=== PATIENT | female | born 1985 | race African-American/Black ===

== ENCOUNTER 2020-07-08 09:32 | Emergency (ER) | payer BC ==
--- NOTE | 2020-07-08 11:36 | ER ---
Nurse's Notes [facility] Name: Rachel Dewey Age: 34 yrs Sex: Female : 1985 Arrival Date: 07/08/2020 Time: 09:41 Bed 5 Private MD: Diagnosis: state;Dorsalgia Presentation: 07/08 10:19 Chief complaint: Patient states: low back and mid back pain for almost 8 months now, iw intermittent, when the pain comes it feels like a shock, also wants a test, LMP was 06-04-20. Coronavirus screen: At this time, the client does not indicate any symptoms associated with coronavirus-19. Ebola Screen: Patient negative for fever greater than or equal to 101.5 degrees Fahrenheit, and additional compatible Ebola Virus Disease symptoms Patient denies exposure to infectious person. Patient denies travel to an Ebola-affected area in the 21 days before illness onset. No symptoms or risks identified at this time. Initial Sepsis Screen: Does the patient meet any 2 criteria? No. Patient's initial sepsis screen is negative. Does the patient have a suspected source of infection? No. Patient's initial sepsis screen is negative. Risk Assessment: Do you want to hurt yourself or someone else? Patient reports no desire to harm self or others. Onset of symptoms was October 2019. 10:19 Method Of Arrival: Ambulatory iw 10:19 Acuity: SADIA 4 iw Triage Assessment: 11:43 General: Appears in no apparent distress. Behavior is calm, cooperative. iw Musculoskeletal: Range of motion: intact in all extremities. 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 - Social history:: Smoking status: Patient denies any tobacco usage or history of. Screenin:43 Abuse screen: Denies threats or abuse. Denies injuries from another. Nutritional iw screening: No deficits noted. Tuberculosis screening: No symptoms or risk factors identified. Fall Risk None identified. Assessment: 11:00 General: Appears in no apparent distress. Pain: Complains of pain in mid back area and iw thoracic area. Neuro: Level of Consciousness is awake, alert, obeys commands, Oriented to person, place, time. Cardiovascular: Patient's skin is warm and dry. Respiratory: Respiratory effort is even, unlabored, Respiratory pattern is regular, symmetrical. GI: Derm: Skin is intact, is healthy with good turgor. Vital Signs: 10:20 BP 143 / 58; Pulse 78; Resp 16 S; Temp 98.3; Pulse Ox 100% on R/A; iw ED Course: 09:41 Patient arrived in ED. rg4 10:21 Triage completed. iw 10:22 Arm band placed on. iw 10:44 Gurvinder Teixeira PA is PHCP. cp 10:44 Carlos Alberto Maxwell MD is Attending Physician. cp 11:00 Patient has correct armband on for positive identification. iw 11:26 Pauline Soto RN is Primary Nurse. iw 11:35 John Sung MD is Referral Physician. cp 11:43 No provider procedures requiring assistance completed. Patient did not have IV access iw during this emergency room visit. Administered Medications: No medications were administered Outcome: 11:36 Discharge ordered by MD. cp 11:43 Discharged to home ambulatory. iw 11:43 Condition: good 11:43 Discharge instructions given to 11:44 Patient left the ED. iw Signatures: Pauline Soto RN RN iw Gurvinder Teixeira PA PA Jeana Thomas rg4 Corrections: (The following items were deleted from the chart) 10:22 10:19 Chief complaint: Patient states: low back and mid back pain for almost 8 months iw now, intermittent, when the pain comes it feels like a shock iw
--- NOTE | 2020-07-08 11:36 | EDPHYS ---
Physician Documentation [facility] Name: Rachel Dewey Age: 34 yrs Sex: Female : 1985 Arrival Date: 07/08/2020 Time: 09:41 Bed 5 Private MD: ED Physician Carlos Alberto Maxwell HPI: 07/08 11:05 This 34 yrs old Black Female presents to ER via Ambulatory with complaints of Back cp Pain, Body Aches. 11:05 The patient presents with pain that is chronic, with no known mechanism of injury. The cp symptoms are located in the mid back with pain radiating up. Onset: The symptoms/episode began/occurred Onset: The symptoms/episode began/occurred 8 month(s) ago. 11:05 Associated signs and symptoms: Pertinent negatives: abdominal pain, fever, cp incontinence, numbness, weakness. 11:05 The problem was sustained from unknown cause. Patient requesting test. 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 - Social history:: Smoking status: Patient denies any tobacco usage or history of. ROS: 11:10 Constitutional: Negative for body aches, chills, fever, poor PO intake. cp 11:10 Eyes: Negative for injury, pain, redness, and discharge. cp 11:10 ENT: Negative for ear pain, difficulty swallowing, difficulty handling secretions. 11:10 Cardiovascular: Negative for chest pain. 11:10 Respiratory: Negative for cough, shortness of breath. 11:10 Abdomen/GI: Negative for abdominal pain, nausea, vomiting, and diarrhea. 11:10 Back: Positive for pain at rest, pain with movement. 11:10 : Negative for urinary symptoms, vaginal bleeding. 11:10 Neuro: Negative for altered mental status, headache, weakness. 11:10 All other systems are negative. Exam: 11:15 Constitutional: The patient appears in no acute distress, alert, awake, comfortable, cp non-toxic, well developed, well nourished. 11:15 Head/Face: Normocephalic, atraumatic. cp 11:15 Eyes: Periorbital structures: appear normal, Conjunctiva: normal, no exudate, no injection, Sclera: no appreciated abnormality, Lids and lashes: appear normal, bilaterally. 11:15 ENT: External ear(s): Nose: is normal, Posterior pharynx: Airway: no evidence of obstruction, patent. 11:15 Chest/axilla: Inspection: normal. 11:15 Respiratory: the patient does not display signs of respiratory distress, Respirations: normal, no use of accessory muscles. 11:15 Abdomen/GI: Exam negative for discomfort, distension, guarding, Inspection: abdomen appears normal. 11:15 Back: pain, that is very mild, of the left scapular area, right scapular area, left subscapular area, right subscapular area, thoracic area and mid back area, ROM is normal. 11:15 Skin: no rash present. 11:15 Neuro: Orientation: to person, place \T\ time. Mentation: is normal, Motor: moves all fours, strength is normal, Sensation: is normal, Gait: is steady. Vital Signs: 10:20 BP 143 / 58; Pulse 78; Resp 16 S; Temp 98.3; Pulse Ox 100% on R/A; iw MDM: 10:56 Patient medically screened. cp 11:35 Data reviewed: vital signs, nurses notes, lab test result(s), and as a result, I will cp discharge patient. 11:35 Counseling: I had a detailed discussion with the patient and/or guardian regarding: the cp historical points, exam findings, and any diagnostic results supporting the discharge/admit diagnosis, lab results, the need for outpatient follow up, an OB/Gyne specialist, to return to the emergency department if symptoms worsen or persist or if there are any questions or concerns that arise at home. 07/08 11:33 Order name: Urine Dipstick--Ancillary (enter results) eb 07/08 11:33 Order name: Urine --Ancillary (enter results) eb 07/08 10:57 Order name: Urine Dipstick-Ancillary (obtain specimen); Complete Time: 11:26 cp 12/10 10:57 Order name: Urine Test (obtain specimen); Complete Time: 11:26 cp Administered Medications: No medications were administered Disposition: 14:39 Co-signature as Attending Physician, Carlos Alberto Maxwell MD I agree with the assessment and kdr plan of care. Disposition: 07/08/20 11:36 Discharged to Home. Impression: state, Dorsalgia. - Condition is Stable. - Discharge Instructions: Back Pain in , First Trimester of . - Prescriptions for Vitamin 27- 0.8 mg Oral Tablet - take 1 tablet by ORAL route once daily; 60 tablet. - Medication Reconciliation Form, Thank You Letter, Antibiotic Education, Prescription Opioid Use form. - Follow up: John Sung MD; When: 1 week; Reason: Recheck today's complaints. - Problem is new. - Symptoms have improved. Signatures: Dispatcher [employer] EDMS Carlos Alberto Maxwell MD MD kdr Pauline Soto RN RN iw Gurvinder Teixeira PA PA cp Corrections: (The following items were deleted from the chart) 11:44 11:36 07/08/2020 11:36 Discharged to Home. Impression: state; Dorsalgia. iw Condition is Stable. Forms are Medication Reconciliation Form, Thank You Letter, Antibiotic Education, Prescription Opioid Use. Follow up: John Sung; When: 1 week; Reason: Recheck today's complaints. Problem is new. Symptoms have improved. cp 19:06 11:05 Onset: The symptoms/episode began/occurred cp cp
[2020-07-08 12:08] LABS: Urine Blood NEGATIVE (NEG); Urine Glucose NEGATIVE (NEG); Urine Protein TRACE (NEG); Urine Specific Gravity 1.025 (1.005-1.030)
== END 2020-07-08 11:44 | disposition home or self-care (01) ==
LOC: ER 09:32
DX: M54.9 Dorsalgia, unspecified (principal); Z33.1 Pregnant state, incidental
CPT/HCPCS: 81003; 81025; 99281

== ENCOUNTER 2020-07-15 12:04 | Emergency (ER) | payer BC ==
--- OUTSIDE RECORDS SUMMARY | 2020-07-15 12:06 | XMS REPORT | Clinical Summary ---
:1985 Author Organization [facility] Address [address] [place] [address] Care Team Providers Name Role Phone Unavailable Primary Care Provider Unavailable Allergies No Known Active Allergies Medications Medication Sig Dispensed Refills Start Date End Date Status 25/iron Take by mouth. 0 Active fum/folic/dha (-1 OR) vitamin Take 1 tablet 90 tablet 1 08/19/2019 Active tabletIndication by mouth daily s: Pharmacist may (spontaneous select any vaginal delivery) Vitamin product covered on the patient's insurance for new rxs and refills. ibuprofen Take 1 tablet 20 tablet 1 08/19/2019 Activ e (MOTRIN) 800 mg by mouth every tabletIndication 8 hours as s: needed for (spontaneous Pain. vaginal delivery) ferrous sulfate Take 1 tablet 30 tablet 3 05/27/2019 Discontinued 325 mg (65 mg by mouth daily 0 ( Therapy iron) (with completed) tabletIndication breakfast). s: Anemia, unspecified type Active Problems Problem Noted Date Normal labor and delivery 08/17/2019 Current with history of pre-term labor in th ird trimester 07/05/2019 Overview: Pt with history of labor and del андрей at 36 weeks gestation 2018 and short interval between . 06/03/2019 S een and evaluated by [facility] . Pt was outside of window for 17 OHP 2/2 m issed/cancelled several appointments. Oligohydramnios in third trimester 07/02/2019 Overview: 07/02/2019 Sono done 06/17/2019 with MARIO 7.9 cm ( borderline ) at 29 weeks gestation . . 07/02/2019 ANT ordered for follow up MARIO 07/09/2019 . with 32 completed weeks gestation 07/02/2019 Obesity, Class I, BMI 30-34.9 06/17/2019 Overview: BMI at entry of care 29.4 Encounter for other general counseling and advice on c ontraception 05/27/2019 Overview: 05/27/19: history of short interval with most recent delivery 07/2018. Counseled on contraception today IUD vs nexplanon vs depo provera vs POP/OCPs. Patient declines at this time and wants to speak with her . Supervision of other normal 03/12/2019 Overview: OB History Para Term AB Living 4 2 1 1 0 2 SAB TAB Ectopic Multiple Live Births 0 0 0 0 2 Obstetric Comments x 1 No LMP recorded. Patient is . Estimated Date of Delivery: 08/27/19 by Ivon JAIME C/W 23 wk U/S Labs : 03/07/2019 Component Latest Ref Rng *03/07/19 ABO/RH O Positive Antibody Screen Negative Hemoglobin 10.5 Hematocrit 33.0 Platelet 229 Rubella, IgG 15.9 (immune) HBsAg Negative HIV-1/HIV-2 Negative RPR NR UDS Urine Culture No growth 2 days Pap 2017 Negative / HPV negative GC/CT Negative / Negative Quad screen Too late to care, 22 wks; c ancelled genetics appt 1 hour GCT Ordered 05/27/19 CBC RPR HIV GBS - flu shot 05/27/2019 Ultrasounds: 05/01/2019: 53%ile for 23w1d, posterior p lacenta, cervix 4.8cm, no anomalies seen 06/17/19 at 29w6d Anemia during in second trimester 03/12/2019 Overview: 05/27/19: hemoglobin 10.5 on 03/07/2019. Rx for PO iron daily printed today. AMA (advanced maternal age) multigravida 35+, second t rimester 03/11/2019 Overview: appt 05/01/19 genetic counseling cancelled Encounters Date Type Specialty Care Team Description 08/17/2019 - Hospital Encounter Obstetrics HENRY Craft (spon emily 08/19/2019 Hussein Morrison MD vaginal delive ry) (Primary Dx) after 07/15/2019 Immunizations Name Administration Dates Next Due Influenza Vaccine, Seasonal, 2017 (Deferred: Patient R efused - Injectable pt states she is allergic to egg) Influenza, 06/17/2019, 05/21/2018 Vaccine<FLUCELVAX>(Multi-Dose) Tdap (Tetanus Toxoid, Reduced 07/15/2018, 04/05/2017 Diphtheria Toxoid And Acellular Pertussis, Absorbed) Family History Relation Name Status Comments Brother Alive 2 Father Alive Maternal Grandfather Maternal Grandmother Mother Alive Paternal Grandfather Paternal Grandmother Sister Alive 2 Social History Tobacco Use Types Packs/Day Years Used Date Never Smoker Smokeless Tobacco: Never Used Alcohol Use Drinks/Week oz/Week Comments Never 0 Standard drinks or equivalent 0.0 Alcohol Habits Answer Date Recorded How often do you have a drink containing alcohol? Never 02/28/2019 How many drinks containing alcohol do you have on a typical Not asked day when you are drinking? How often do you have six or more drinks on one occasion? No t asked Food Insecurity Answer Date Recorded Within the past 12 months, you worried that your food would Never true 04/04/2018 run out before you got money to buy more. Within the past 12 months, the food you bought just didn't N ever true 04/04/2018 last and you didn't have money to get more. Sex Assigned at Date Recorded Not on file Last Filed Vital Signs Vital Sign Reading Time Taken Comments Blood Pressure 129/83 08/19/2019 12:24 PM [employer] Pulse 75 08/19/2019 12:24 PM [employer] Temperature 36.7 C (98.1 F) 08/19/2019 12:24 PM [employer] Respiratory Rate 18 08/19/2019 12:24 PM [employer] Oxygen Saturation 99% 08/17/2019 6:15 AM [employer] Inhaled Oxygen Concentration - - Weight - - Height - - Body Mass Index - - Plan of Treatment Health Maintenance Due Date Last Done Comments IMM Influenza Seasonal Oct to 04/29/2020 06/17/2019, 2017 (>/= 19 yrs) Pap Cervical Cancer Scrn 07/25/2022 07/25/2017 (Previously completed - External) HPV Cervical Cancer Scrn 2022 2017, 01/22/2017 Procedures Procedure Name Priority Date/Time Associated Comments Diagnosis HGB/HCT Routine 08/17/2019 7:26 Results for this PM [employer] procedure are i n the results section. LACTATE DEHYDROGENASE STAT 08/17/2019 5:58 Re sults for this (LDH) AM [employer] procedure are i n the results section. TOTAL PROTEIN/CREATININE STAT 08/17/2019 5:58 Results for this RATIO, URINE AM [employer] procedure are i n the results section. ALANINE STAT 08/17/2019 5:58 Results for this AMINOTRASFERASE/ASPARTAT AM [employer] pro cedure are in E AMINOTRANSFERASE the resul ts (ALT/AST) section. T&S - COLLECTION STAT 08/17/2019 4:09 Results for this AM [employer] procedure are i n the results section. TYPE AND SCREEN STAT 08/17/2019 4:09 Results for this AM [employer] procedure are i n the results section. CBC (WITHOUT STAT 08/17/2019 4:08 Results for this DIFFERENTIAL) AM [employer] procedure are in the results section. SYPHILIS SCREEN FOR STAT 08/17/2019 4:08 Resu lts for this INFECTION AM [employer] procedure are i n the results section. HEPATITIS B SURFACE AG STAT 08/17/2019 4:08 R esults for this AM [employer] procedure are i n the results section. HIV AG/AB COMBO STAT 08/17/2019 4:08 Results for this SCREENING AM [employer] procedur e are in the results section. after 07/15/2019 Results HGB/HCT (08/17/2019 7:26 PM [employer]) Pathologist Sig nature Hemoglobin 10.6 (L) 12.0 - 16.0 g/dL [facility] Hematocrit 32.7 (L) 37.0 - 47.0 % [facility] Specimen Blood Narrative Performed At 8 hours after delivery [facility] Performing Organization Address City/[facility] Phon e Number [facility] [address] [place] [address] Total Protein/Creatinine Ratio, Urine (08/17/2019 5:58 AM [employer]) Pathologist Sig nature Creatinine, Urine 36 20 - 320 mg/dL [facility] Total Protein, Urine 0.10 <0.19 g/L [facility] Total 0.3 0 - 0.5 % % [facility] Protein/Creatinine Ratio, Urine Specimen Urine - Voided, urine Performing Organization Address City/[facility] Phon e Number [facility] [address] [place] [address] LDH [Lactate Dehydrogenase] (08/17/2019 5:58 AM [employer]ER) Pathologist Sig nature LDH 224 140 - 271 U/L [facility] Specimen Blood Performing Organization Address [facility] Phon e Number [facility] [address] [place] [address] ALT/AST (08/17/2019 5:58 AM [employer] AND [employer]BLER) Pathologist Sig nature ALT 17 7 - 52 U/L [facility] AST 23 13 - 39 U/L [facility] Specimen Blood Performing Organization Address [facility] Phon e Number [facility] [address] [place] [address] T&S Collection (08/17/2019 4:09 AM [employer]BLER) Pathologist Sig nature Specimen Expiration 08/20/2019 23:59 [facility] ABO/RH O POS [facility] Antibody Screen NEG [facility] Specimen Blood Performing Organization Address [facility] Phon e Number [facility] [address] [place] [address] Syphilis Screen for Infection (08/17/2019 4:08 AM [employer]) Pathologist Sig nature TPA Negative Negative, Equivocal [facility] Final Report Negative Negative [facility] Specimen Blood Performing Organization Address [facility] Phon e Number [facility] [address] [place] [address] HIV-1/HIV-2 SCREENING (08/17/2019 4:08 AM [employer]BLER) Pathologist Sig nature HIV Ag/Ab Combo Negative Negative [facility] Specimen Blood Performing Organization Address [facility] Phon e Number [facility] [address] [place] [address] [phone] Hep B [place] Ag (08/17/2019 4:08 AM [employer] AS[employer]BLER) Pathologist Sig nature Hep B Surface Ag Negative Negative [facility] Specimen Blood Performing Organization Address [facility] Phon e Number [facility] [address] [place] [address] [phone] CBC (08/17/2019 4:08 AM [employer] AND W[employer] ASSEMBLER) Pathologist Sig nature WBC 12.4 (H) 4.5 - 11.0 K/uL [facility] RBC 4.17 (L) 4.20 - 5.40 [facility] M/uL Hemoglobin 11.3 (L) 12.0 - 16.0 [facility] g/dL Hematocrit 36.1 (L) 37.0 - 47.0 % [facility] MCV 86.6 82.0 - 92.0 fL [facility] MCH 27.1 27.0 - 32.0 pg [facility] MCHC 31.3 (L) 32.0 - 36.0 [facility] g/dL RDW 41.5 36.4 - 46.3 fL [facility] Platelet 166 150 - 400 K/uL [facility] Mean Platelet Volume 10.9 9.4 - 12.4 fL [facility] Percent NRBC 0.0 % [facility] Specimen Blood Performing Organization Address City/State/ZIP Code Phon e Number [facility] [address] [place] [address] after 07/15/2019 Insurance Payer Benefit Plan / Subscriber ID Effective Dates Phone Addre ss Type Group [employer] SELF-PAY [id number] [employer] SELF-PAY SCREENED [address] [place] [address] Guarantor Name Account Type Relation to Date of Phone Billing Address Patient LORRIE DEWEY Personal/Famil Head of 1985 [address] (Self) (Home) [address] [place], [place] (Work) [id number] Lorrie Dewey Marlon Self 1985 [address] (Home) [place], [place] [phone] (Work) Advance Directives Code Status Date Activated Date Inactivated Comments Full Code 08/17/2019 4:54 AM 08/19/2019 4:25 PM Full Code 08/17/2019 3:30 AM 08/17/2019 4:54 AM Full Code 08/14/2018 5:05 AM 08/15/2018 8:05 PM Full Code 08/13/2018 3:59 PM 08/14/2018 5:05 AM Full Code 08/02/2018 9:21 PM 08/03/2018 5:25 PM
--- OUTSIDE RECORDS SUMMARY | 2020-07-15 12:07 | XMS REPORT | Continuity of Care Document ---
:1985 Author Organization [facility] t Address [address] [place] [address] Care Team Providers Name Role Phone Luana BINGHAM, Hussein Morrison Attending Clinician Payers Payer Name Policy Type Policy Number Effective Date Expiration Date Yash anton [facility] [id number] 2019 2029 [facility] SELF-PAYSELF- 00:00:00 23:59:59 PAY [id number] [phone] [place] [address] Problems Condition Condition Condition Status Onset Resolution Last Treating Co mments Source Name Details Category Date Date Treatment Clinician Date Normal Normal Disease Active Alberto labor and labor and 08-17 delivery delivery 00:00: 00 Current Current Disease Active 2018-07 Overview: Sandi is 2-07 Pt with Maci lt with with 00:00: history history of history of 00 of pre-term pre-term labor in labor in labor and third third delivery trimester trimester at 36 weeks gestation 2018 and short interval between . 06/03/2019 Seen and evaluated by [facility] . Pt was outside of window for 17 OHP 2/2 missed/ca ncelled several appointme nts. Oligohydra Oligohydra Disease Active 2018-07 Overview : Remy mnios in mnios in 2-04 07/02/2019 Hea lt third third 00:00: Sono done trimester trimester 00 9 with MARIO 7.9 cm ( borderlin e ) at 29 weeks gestation . . 07/02/2019 ANT ordered for follow up MARIO 9 . Disease Active 2018-07 Fletcher ris with 32 with 32 2- Health completed completed 00:00: weeks weeks 00 gestation gestation Obesity, Obesity, Disease Active 2018-07 Overview: Guerrero rris Class I, Class I, 1-19 BMI at Health BMI BMI 00:00: entry of 30-34.9 30-34.9 00 care 29.4 Encounter Encounter Disease Active 2018-07 Overview: Remy for other for other 0-29 05/27/19: H ealt general general 00:00: history counseling counseling 00 of short and advice and advice interval on on contracept contracept with most ion ion recent delivery 07/2018. Counseled on contracep tion today IUD vs nexplanon vs depo provera vs POP/OCPs. Patient declines at this time and wants to speak with her . Supervisio Supervisio Disease Active Overview : Remy n of other n of other 8-14 [facility] normal normal 00:00: g of this 00 note might be different from the original. OB History Para Term AB Living 4 2 1 1 0 2 SAB TAB Ectopic Multiple Live Births 0 0 0 0 2 Obstetric Comments x 1 No LMP recorded. Patient is . Estimated Date of Delivery: 08/27/19 by LMP C/W 23 wk U/S Labs : 03/07/2019 Component Latest Ref Rng *03/07/19 ABO/RH O Positive Antibody Screen Negative Hemoglobi n 10.5 Hematocri t 33.0 Platelet 229 Rubella, IgG 15.9 (immune) HBsAg Negative HIV-1/HIV -2 Negative RPR NR UDS Urine Culture No growth 2 days Pap 7 Negative / HPV negative GC/CT Negative / Negative Quad screen Too late to care, 22 wks; cancelled genetics appt 1 hour GCT Ordered 05/27/19 CBC RPR HIV GBS - flu shot 9Ultrasou nds:2018: 53%ile for 23w1d, posterior placenta, cervix 4.8cm, no anomalies seen 06/17/19 at 29w6d Anemia Anemia Disease Active Overview: [place] during during -05/27/19: Health 00:00: hemoglobi in second in second 00 n 10.5 on trimester trimester 03/07/2019. Rx for PO iron daily printed today. AMA AMA Disease Active Overview: Alberto (advanced (advanced 03-11 appt Heal th maternal maternal 00:00: 05/01/19 age) age) 00 genetic multigravi multigravi counselin da 35+, da 35+, g second second cancelled trimester trimester Allergies, Adverse Reactions, Alerts This patient has no known allergies or adverse reactions. Social History Social Habit Start Date Stop Date Quantity Comments Source History [facility] Alcohol Std Drinks History [facility] Alcohol Binge Sex Assigned At [facility] alth Tobacco use and 2019-08-17 2019-08-17 Never used [facility] exposure 00:00:00 00:00:00 Alcohol intake 2019-08-17 2019-08-17 [facility]00 non-drinker (finding) History [facility] 2019-02-28 2019-02-[address] [facility] Alcohol Frequency 00:00:00 00:00:00 History [facility] Food 2018-04-04 2018-04-04 1 [place] [facility] Worry 00:00:00 00:00:00 History [facility] Food 2018-04-04 2018-04-04 1 [place] [facility] Scarcity 00:00:00 00:00:00 Smoking Status Start Date Stop Date Source Never smoker [facility] Medications Ordered Filled Start Stop Current Ordering Indication Dosage Frequency Signature Comments Components Source Medication Medication Date Date Medication? Clinician (SIG) Name Name Yes Take by Alberto 25/iron 1-21 mouth. Health fum/folic/d 14:25: guerrero 02 (-1 OR) Yes 1{tbl} QD Take 1 Harri s vitamin 1-21 (spontaneou tablet by Health tablet 00:00: s vaginal mouth 00 delivery) daily Pharmacist may select any Vitamin product covered on the patient's insurance for new rxs and refills. ibuprofen Yes 800mg Take 1 Harri s (MOTRIN) -21 (spontaneou tablet by [facility] 800 mg 00:00: s vaginal mouth tablet 00 delivery) every 8 hours as needed for Pain. ferrous 2018-07- No Anemia, 325mg QD Take 1 Fletcher ris sulfate 325 008-[address] [facility] mg (65 mg 00:00: 00:00 type mouth iron) 00 :00 daily tablet (with breakfast) . Immunizations Ordered Immunization Filled Immunization Date Status Commen ts Source Name Name Influenza, 2019-06-17 Completed [facility] Vaccine<FLUCELVAX>(M 00:00:00 ulti-Dose) Tdap (Tetanus 2018-07-[address] [facility] Toxoid, Reduced 00:00:00 Diphtheria Toxoid And Acellular Pertussis, Absorbed) Influenza, 2018-05-21 Completed [facility] Vaccine<FLUCELVAX>(M 00:00:00 ulti-Dose) Tdap (Tetanus 2017-04-[address] [facility] Toxoid, Reduced 00:00:00 Diphtheria Toxoid And Acellular Pertussis, Absorbed) Vital Signs Vital Name Observation Time Observation Value Comments Source Systolic blood pressure 2019-08-19 12:24:00 129 mm[Hg] [facility] Diastolic blood pressure 2019-08-19 12:24:00 83 mm[Hg] [facility] Heart rate 2019-08-19 12:24:00 75 /min [facility] ealt Body temperature 2019-08-19 12:24:[address] [facility] Respiratory rate 2019-08-19 12:24:00 18 /min [facility] Oxygen saturation in 2019-08-17 06:15:00 99 /min [facility] Arterial blood by Pulse oximetry Procedures Procedure Date / Time Performed Performing Clinician Sourc e HGB/HCT 2019-08-17 19:26:[address] [facility] ALANINE 2019-08-17 05:58:00 Celena August [facility] AMINOTRASFERASE/ASPARTATE AMINOTRANSFERASE (ALT/AST) TOTAL PROTEIN/CREATININE 2019-08-17 05:58:00 [facility] RATIO, URINE LACTATE DEHYDROGENASE (LDH) 2019-08-17 05:58:00 Celena August [facility] TYPE AND SCREEN 2019-08-17 04:09:00 [facility] 2019-08-17 04:09:00 AgustinaLiz [facility] th HIV AG/AB COMBO 2019-08-17 04:08:[address] [facility] SCREENING HEPATITIS B SURFACE AG 2019-08-17 04:08:[facility] SYPHILIS SCREEN FOR INFECTION 2019-08-17 04:08:00 Liz Berrios [facility] CBC (WITHOUT DIFFERENTIAL) 2019-08-17 04:08:[address] [facility] Plan of Care Planned Activity Planned Date Details Comments Source Future Scheduled Test 2022 00:00:00 Screening for [facility] malignant neoplasm of cervix (procedure) [code = 301187329] Future Scheduled Test 2022-07-25 00:00:00 Screening for [facility] malignant neoplasm of cervix (procedure) [code = 264376257] Future Scheduled Test 2020-04-29 00:00:00 IMM Influenza [facility] Seasonal Oct to September (>/= 19 yrs) [code = IMM Influenza Seasonal Oct to September (>/= 19 yrs)] Encounters Start End Encounter Admission Attending Care Care Encounter Source Date/Time Date/Time Type Type Clinicians Facility Department ID 2018-08-13 Inpatient [facility] [id number] H arris 00:00:00 [facility] 2018-08-13 Inpatient [facility] [id number] H arris 00:00:00 [facility] 2018-08-03 Inpatient [facility] [id number] H arris 00:00:00 [facility] 2017-06-15 Inpatient [facility] [id number] H arris 20:08:24 [facility] 2017-06-14 Inpatient [facility] [id number] H arris 22:47:52 Health 2019-07-16 2019-07-16 Outpatient [facility] [id number] [place] 00:00:00 00:00:00 Health 2019-07-09 2019-07-09 Outpatient [facility] [id number] [place] 00:00:00 00:00:00 Health 2019-07-09 2019-07-09 Outpatient [facility] [id number] [place] 00:00:00 00:00:00 Health 2019-07-02 2019-07-02 Outpatient [facility] [id number] Alberto 14:55:58 14:55:58 Health 2019-06-23 2019-06-23 Outpatient [facility] [id number] Alberto 00:00:00 00:00:00 [facility] 2019-06-17 2019-06-17 Outpatient [facility] [id number] [place]to 16:12:47 16:12:47 [facility] 2019-06-17 2019-06-17 Outpatient [facility] [id number] Alberto 14:58:36 14:58:36 [facility] 2019-06-17 2019-06-17 Outpatient [facility] [id number] [place] 00:00:00 00:00:00 [facility] 2019-06-17 2019-06-17 Outpatient [facility] [id number] [place] 00:00:00 00:00:00 [facility] 2019-06-02 2019-06-02 Outpatient [facility] [id number] Alberto 00:00:00 00:00:00 [facility] 2019-05-27 2019-05-27 Outpatient [facility] [id number] [place]to 15:50:59 15:50:59 [facility] 2019-05-06 2019-05-06 Outpatient [facility] [id number] [place]to 00:00:00 00:00:00 [facility] 2019-05-01 2019-05-01 Outpatient [facility] [id number] [place] 13:57:04 13:57:04 [facility] 2019-05-01 2019-05-01 Outpatient [facility] [id number] [place] 00:00:00 00:00:00 [facility] 2019-05-01 2019-05-01 Outpatient [facility] [id number] [place] 00:00:00 00:00:00 [facility] 2019-05-01 2019-05-01 Outpatient [facility] [id number] [place] 00:00:00 00:00:00 [facility] 2019-04-30 2019-04-30 Outpatient [facility] [id number] [place] 00:00:00 00:00:00 [facility] 2019-04-23 2019-04-23 Outpatient [facility] [id number] [place] 11:57:19 11:57:19 [facility] 2019-04-16 2019-04-16 Outpatient [facility] [id number] [place] 00:00:00 00:00:00 [facility] 2019-03-13 2019-03-13 Outpatient [facility] [id number] [place] 00:00:00 00:00:00 [facility] 2019-03-12 2019-03-12 Outpatient [facility] [id number] [place] 00:00:00 00:00:00 [facility] 2019-03-07 2019-03-07 Outpatient [facility] [id number] [place] 13:42:26 13:42:26 [facility] 2019-02-28 2019-02-28 Outpatient [facility] [id number] [place] 12:44:17 12:44:17 [facility] 2019-02-28 2019-02-28 Outpatient [facility] [id number] [place] 00:00:00 00:00:00 [facility] 2019-02-12 2019-02-12 Emergency [facility] [id number] Alberto 10:34:17 10:34:17 [facility] 2018-11-06 2018-11-06 Outpatient [facility] [id number] [place] 00:00:00 00:00:00 [facility] 2018-09-30 2018-09-30 Outpatient [facility] [id number] [place] 00:00:00 00:00:00 [facility] 2018-09-30 2018-09-30 Outpatient [facility] [id number] [place] 00:00:00 00:00:00 [facility] 2018-09-25 2018-09-25 Outpatient [facility] [id number] [place] 00:00:00 00:00:00 [facility] 2018-09-24 2018-09-24 Outpatient [facility] [id number] [place] 00:00:00 00:00:00 [facility] 2018-08-13 2018-08-13 Inpatient [facility] [id number] Alberto 14:09:33 14:09:33 [facility] 2018-08-03 2018-08-03 Outpatient [facility] [id number] [place] 08:30:48 08:30:48 [facility] 2018-08-02 2018-08-02 Inpatient [facility] [id number] Alberto 18:20:21 18:20:21 [facility] 2018-08-02 2018-08-02 Outpatient [facility] [id number] [place] 10:46:56 10:46:56 [facility] 2018 2018 Outpatient [facility] [id number] Alberto 09:43:06 09:43:06 [facility] 2018-07-19 2018-07-19 Outpatient [facility] [id number] [place] 08:58:18 08:58:18 [facility] 2018-07-15 2018-07-15 Outpatient [facility] [id number] [place] 14:56:06 14:56:06 [facility] 2018-07-08 2018-07-08 Outpatient [facility] [id number] [place] 00:00:00 00:00:00 [facility] 2018-06-24 2018-06-24 Outpatient [facility] [id number] [place] 13:29:46 13:29:46 [facility] 2018-06-24 2018-06-24 Outpatient [facility] [id number] [place] 00:00:00 00:00:00 [facility] 2018-05-22 2018-05-22 Outpatient [facility] [id number] [place] 00:00:00 00:00:00 [facility] 2018-05-21 2018-05-21 Outpatient [facility] [id number] [place] 12:01:37 12:01:37 [facility] 2018-05-21 2018-05-21 Outpatient [facility] [id number] [place] 11:04:03 11:04:03 [facility] 2018-05-06 2018-05-06 Outpatient [facility] [id number] [place] 12:58:42 12:58:42 [facility] 2018-05-06 2018-05-06 Outpatient [facility] [id number] [place] 00:00:00 00:00:00 [facility] 2018-04-22 2018-04-22 Outpatient [facility] [id number] [place] 00:00:00 00:00:00 [facility] 2018-04-22 2018-04-22 Outpatient [facility] [id number] [place] 00:00:00 00:00:00 [facility] 2018-04-04 2018-04-04 Outpatient [facility] [id number] [place] 10:25:29 10:25:29 [facility] 2018-03-29 2018-03-29 Outpatient [facility] [id number] [place] 00:00:00 00:00:00 [facility] 2018-03-29 2018-03-29 Outpatient [facility] [id number] [place] 00:00:00 00:00:00 [facility] 2018-03-27 2018-03-27 Outpatient [facility] [id number] [place] 00:00:00 00:00:00 [facility] 2018-03-18 2018-03-18 Outpatient [facility] [id number] [place] 14:00:21 14:00:21 [facility] 2018-03-14 2018-03-14 Outpatient [facility] [id number] [place] 09:21:05 09:21:05 [facility] 2017 2017 Outpatient [facility] [id number] [place] 15:16:09 15:16:09 [facility] 2017-06-18 2017-06-18 Outpatient [facility] [id number] [place] 00:00:00 00:00:00 [facility] 2017-06-13 2017-06-13 Inpatient [facility] [id number] [place] 13:16:41 13:16:41 [facility] 2017-06-13 2017-06-13 Outpatient [facility] [id number] [place] 11:15:24 11:15:24 [facility] 2017-06-13 2017-06-13 Outpatient [facility] [id number] [place] 00:00:00 00:00:00 [facility] 2017-06-13 2017-06-13 Outpatient [facility] [id number] [place] 00:00:00 00:00:00 [facility] 2017-06-13 2017-06-13 Outpatient [facility] [id number] [place] 00:00:00 00:00:00 [facility] 2017-06-12 2017-06-12 Outpatient [facility] [id number] [place] 00:00:00 00:00:00 [facility] 2017-06-12 2017-06-12 Outpatient [facility] [id number] [place] 00:00:00 00:00:00 [facility] 2017-06-05 2017-06-05 Outpatient [facility] [id number] [place] 11:49:40 11:49:40 [facility] 2017-06-05 2017-06-05 Outpatient [facility] [id number] [place] 09:57:27 09:57:27 [facility] 2017-06-04 2017-06-04 Outpatient [facility] [id number] [place] 00:00:00 00:00:00 [facility] 2017-05-28 2017-05-28 Outpatient [facility] [id number] [place] 16:15:59 16:15:59 [facility] 2017-05-28 2017-05-28 Outpatient [facility] [id number] [place] 14:56:12 14:56:12 [facility] 2017-05-28 2017-05-28 Outpatient [facility] [id number] [place] 12:06:27 12:06:27 [facility] 2017-05-21 2017-05-21 Outpatient [facility] [id number] [place] 00:00:00 00:00:00 [facility] 2017-05-21 2017-05-21 Outpatient [facility] [id number] [place] 00:00:00 00:00:00 [facility] 2017-05-14 2017-05-14 Outpatient [facility] [id number] [place] 17:34:44 17:34:44 [facility] 2017-05-14 2017-05-14 Outpatient [facility] [id number] [place] 15:19:09 15:19:09 [facility] 2017-05-14 2017-05-14 Outpatient [facility] [id number] [place] 00:00:00 00:00:00 [facility] 2017-05-14 2017-05-14 Outpatient [facility] [id number] [place] 00:00:00 00:00:00 [facility] 2017-05-14 2017-05-14 Outpatient [facility] [id number] [place] 00:00:00 00:00:00 [facility] 2017-05-07 2017-05-07 Outpatient [facility] [id number] [place] 10:33:58 10:33:58 [facility] 2017-04-30 2017-04-30 Outpatient [facility] [id number] [place] 14:01:44 14:01:44 [facility] 2017-04-30 2017-04-30 Outpatient [facility] [id number] [place] 11:57:33 11:57:33 [facility] 2017-04-30 2017-04-30 Outpatient [facility] [id number] [place] 10:46:51 10:46:51 [facility] 2017-04-30 2017-04-30 Outpatient [facility] [id number] [place] 00:00:00 00:00:00 [facility] 2017-04-16 2017-04-16 Outpatient [facility] [id number] [place] 13:41:48 13:41:48 [facility] 2017-04-05 2017-04-05 Outpatient [facility] [id number] [place] 09:49:53 09:49:53 [facility] 2017-03-19 2017-03-19 Outpatient [facility] [id number] [place] 13:30:03 13:30:03 [facility] 2017-03-19 2017-03-19 Outpatient [facility] [id number] [place] 11:48:14 11:48:14 [facility] 2017-03-19 2017-03-19 Outpatient [facility] [id number] [place] 00:00:00 00:00:00 [facility] 2017-03-05 2017-03-05 Outpatient [facility] [id number] [place] 11:57:40 11:57:40 [facility] 2017-02-19 2017-02-19 Outpatient [facility] [id number] [place] 15:20:43 15:20:43 [facility] 2017-02-02 2017-02-02 Outpatient [facility] [id number] [place] 12:36:25 12:36:25 Health 2017-01-22 2017-01-22 Outpatient [facility] [id number] [place] 11:44:16 11:44:16 [facility] 2017-01-22 2017-01-22 Outpatient [facility] [id number] [place] 10:25:12 10:25:12 Health 2017-01-03 2017-01-03 Outpatient [facility] [id number] [place] 11:28:23 11:28:23 Health 2016-12-23 2016-12-23 Outpatient [facility] [id number] [place] 14:59:52 14:59:52 Health Results Test Description Test Time Test Comments Results Result Comments Source HGB/HCT 2019-08-17 19:46:00 Test Item Value Reference Range Interpretation Comme nts Hemoglobin (test code = 718-7) 10.6 g/dL 12-16 L Hematocrit (test code = 4544-3) 32.7 % 37-47 L MANAS (test code = MANAS) 8 hours after delivery Lab Interpretation (test code = 65989-0) [facility]normal [facility] [id number] 11:38:00 Test Item Value Reference Range Interpretation Comments TPA (test code = 50894-8) Negative Negative, Equivocal Final Report (test code = Negative Negative 65979-1) Lab Interpretation (test code = Normal 99923-7) [facility][id number] 07:11:00 Test Item Value Reference Range Interpretation Comments ALT (test code = 98058874) 17 U/L 7-52 AST (test code = 72007836) 23 U/L 13-39 Lab Interpretation (test code = Normal 45941-3) [facility] [Lactate Dehydrogenase]2019-08-17 07:11:00 Test Item Value Reference Range Interpretation Comments LDH (test code = 41350488) 224 U/L 140-271 Lab Interpretation (test code = Normal 48397-8) [facility]/Creatinine Ratio, [id number] 07:01:00 Test Item Value Reference Range Interpretation Comments Creatinine, Urine (test code = 36 mg/dL 20-320 93432118) Total Protein, Urine (test code = 0.10 g/L <0.19 23106987) Total Protein/Creatinine Ratio, 0.3 % 0- 0.5 % Urine (test code = 70119367) Lab Interpretation (test code = Normal 48730-8) [facility] CenterT&S [id number] 06:03:00 Test Item Value Reference Range Interpretation Comments Specimen Expiration (test 08/20/2019 23:59 code = 33144608) ABO/RH (test code = O POS 43802142) Antibody Screen (test code = NEG 86953653) [facility] Center[facility] B [id number] 05:36:00 Test Item Value Reference Range Interpretation Comments Hep B Surface Ag (test code = Negative Negative 5196-1) Lab Interpretation (test code = Normal 40332-8) [facility]/HIV-2 [id number] 05:36:00 Test Item Value Reference Range Interpretation Comments HIV Ag/Ab Combo (test code = Negative Negative 63379-2) Lab Interpretation (test code = Normal 38454-5) [facility] [id number] 04:54:00 Test Item Value Reference Range Interpretation Comments WBC (test code = 6690-2) 12.4 K/uL 4.5-11 H RBC (test code = 789-8) 4.17 4.20- 5.40 M/uL L Hemoglobin (test code = 718-7) 11.3 g/dL 12-16 L Hematocrit (test code = 4544-3) 36.1 % 37-47 L MCV (test code = 787-2) 86.6 fL 82-92 MCH (test code = 785-6) 27.1 pg 27-32 MCHC (test code = 786-4) 31.3 g/dL 32-36 L RDW (test code = 27768-1) 41.5 fL 36.4-46.3 Platelet (test code = 777-3) 166 K/uL 150-400 Mean Platelet Volume (test code = 10.9 fL 9.4-12.4 53431-1) Percent NRBC (test code = 98160772) 0.0 % Lab Interpretation (test code = Abnormal 85228-7) [facility]
--- NOTE | 2020-07-15 15:08 | ER ---
Nurse's Notes [facility] Name: Rachel Dewey Age: 34 yrs Sex: Female : 1985 Arrival Date: 07/15/2020 Time: 12:04 Bed 23 Private MD: Diagnosis: Viral infection, unspecified Presentation: 07/15 12:44 Chief complaint: Patient states: Feeling feverish since Sunday, denies jl7 cough/congestion, denies N/V/D, reports back pain, reports 5 weeks . Coronavirus screen: Client denies travel out of the [place] in the last 14 days. fever, Client presents with at least one sign or symptom that may indicate coronavirus-19. Standard/surgical mask placed on the client. Provider contacted for isolation considerations. Ebola Screen: No symptoms or risks identified at this time. Initial Sepsis Screen: Does the patient meet any 2 criteria? No. Patient's initial sepsis screen is negative. Does the patient have a suspected source of infection? No. Patient's initial sepsis screen is negative. Risk Assessment: Do you want to hurt yourself or someone else? Patient reports no desire to harm self or others. Onset of symptoms was July 12, 2020. 12:44 Method Of Arrival: Ambulatory jl7 12:44 Acuity: SADIA 4 jl7 Triage Assessment: 12:46 General: Appears in no apparent distress. uncomfortable, Behavior is calm, cooperative, jl7 appropriate for age. Pain: Complains of pain in low back area Pain does not radiate. Pain currently is 5 out of 10 on a pain scale. Is intermittent. 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 - Social history:: Smoking status: Patient denies any tobacco usage or history of. Screenin:46 Abuse screen: Denies threats or abuse. Denies injuries from another. Nutritional jl7 screening: No deficits noted. Tuberculosis screening: No symptoms or risk factors identified. Fall Risk None identified. Assessment: 14:46 General: Appears in no apparent distress. uncomfortable, Behavior is calm, cooperative, jl7 appropriate for age. Pain: Complains of pain in low back area Pain does not radiate. Pain currently is 5 out of 10 on a pain scale. Quality of pain is described as sore Pain began gradually, Is continuous. Neuro: Level of Consciousness is awake, alert, obeys commands, Oriented to person, place, time, situation. Cardiovascular: Patient's skin is warm and dry. Respiratory: Airway is patent Respiratory effort is even, unlabored, Respiratory pattern is regular, symmetrical. GI: No signs and/or symptoms were reported involving the gastrointestinal system. : No signs and/or symptoms were reported regarding the genitourinary system. Derm: Skin is pink, warm \T\ dry. 16:16 Reassessment: Pt discharged without being swabbed. attempted to call pt back to ER and jl7 no answer at this time. Will continue to try and get pt back for swabs. ERP notifed. Vital Signs: 12:44 BP 142 / 90; Pulse 92; Resp 19; Temp 100; Pulse Ox 100% ; Weight 68.04 kg; Height 5 ft. jl7 5 in. (165.10 cm); Pain 5/10; 14:46 BP 146 / 100; Pulse 84; Resp 17; Temp 99.2; Pulse Ox 100% ; Pain 0/10; jl7 12:44 Body Mass Index 24.96 (68.04 kg, 165.10 cm) jl7 ED Course: 12:04 Patient arrived in ED. ag5 12:45 Triage completed. jl7 12:46 Arm band placed on right wrist. Patient placed in waiting room, in view of staff 7 members, Patient notified of wait time. 14:34 Francie Grider FNP-C is PHCP. snw 14:34 Carlos Alberto Maxwell MD is Attending Physician. snw 14:38 Wing Chen RN is Primary Nurse. jl7 14:46 Patient has correct armband on for positive identification. Bed in low position. Call jl7 light in reach. Side rails up X 1. Pulse ox on. NIBP on. 15:04 Urine collected: clean catch specimen, clear. jl7 15:25 No provider procedures requiring assistance completed. Patient did not have IV access jl7 during this emergency room visit. Administered Medications: No medications were administered Outcome: 15:07 Discharge ordered by MD. marte 15:25 Discharged to home ambulatory. jl7 15:25 Condition: stable 15:25 Discharge instructions given to patient, Instructed on discharge instructions, follow up and referral plans. Demonstrated understanding of instructions, follow-up care. 16:17 Patient left the ED. jl7 Signatures: Francie Grider, FISH HEADER-C FISH HEADER-Wing Vieyra RN RN jl7 Amador Pedraza ag5 Corrections: (The following items were deleted from the chart) 12:46 12:44 Chief complaint: Patient states: Feeling feverish since Sunday, denies jl7 cough/congestion, denies N/V/D, reports back pain jl7
--- NOTE | 2020-07-15 15:08 | EDPHYS ---
Physician Documentation [facility] Name: Rachel Dewey Age: 34 yrs Sex: Female : 1985 Arrival Date: 07/15/2020 Time: 12:04 Bed 23 Private MD: ED Physician Carlos Alberto Maxwell HPI: 07/15 15:37 This 34 yrs old Black Female presents to ER via Ambulatory with complaints of Fever. snw 15:37 The patient reports fever, not measured (subjective). Onset: The symptoms/episode snw began/occurred gradually, 3 day(s) ago. Modifying factors: Workplace requested pt have check up for hx of fever. Associated signs and symptoms: Pertinent positives: myalgias, . Severity of symptoms: At their worst the symptoms were moderate. It is unknown whether or not the patient has had similar symptoms in the past. It is unknown whether or not the patient has recently seen a physician. 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 - Social history:: Smoking status: Patient denies any tobacco usage or history of. ROS: 15:36 Eyes: Negative for injury, pain, redness, and discharge, ENT: Negative for injury, snw pain, and discharge, Neck: Negative for injury, pain, and swelling, Cardiovascular: Negative for chest pain, palpitations, and edema, Respiratory: Negative for shortness of breath, cough, wheezing, and pleuritic chest pain. 15:36 Back: Negative for injury and pain, MS/Extremity: Negative for injury and deformity, Skin: Negative for injury, rash, and discoloration, Neuro: Negative for headache, weakness, numbness, tingling, and seizure, Psych: Negative for depression, anxiety, suicide ideation, homicidal ideation, and hallucinations. 15:36 Constitutional: Positive for body aches, fever, malaise. 15:36 Abdomen/GI: Negative for abdominal pain. 15:36 : Negative for vaginal bleeding, vaginal discharge. Exam: 15:36 Constitutional: This is a well developed, well nourished patient who is awake, alert, snw and in no acute distress. Head/Face: Normocephalic, atraumatic. Eyes: Pupils equal round and reactive to light, extra-ocular motions intact. Lids and lashes normal. Conjunctiva and sclera are non-icteric and not injected. Cornea within normal limits. Periorbital areas with no swelling, redness, or edema. ENT: Nares patent. No nasal discharge, no septal abnormalities noted. Tympanic membranes are normal and external auditory canals are clear. Oropharynx with no redness, swelling, or masses, exudates, or evidence of obstruction, uvula midline. Mucous membranes moist. Neck: Trachea midline, no thyromegaly or masses palpated, and no cervical lymphadenopathy. Supple, full range of motion without nuchal rigidity, or vertebral point tenderness. No Meningismus. Chest/axilla: Normal chest wall appearance and motion. Nontender with no deformity. No lesions are appreciated. Cardiovascular: Regular rate and rhythm with a normal S1 and S2. No gallops, murmurs, or rubs. Normal PMI, no JVD. No pulse deficits. Respiratory: Lungs have equal breath sounds bilaterally, clear to auscultation and percussion. No rales, rhonchi or wheezes noted. No increased work of breathing, no retractions or nasal flaring. Abdomen/GI: Soft, non-tender, with normal bowel sounds. No distension or tympany. No guarding or rebound. No evidence of tenderness throughout. Back: No spinal tenderness. No costovertebral tenderness. Full range of motion. Skin: Warm, dry with normal turgor. Normal color with no rashes, no lesions, and no evidence of cellulitis. MS/ Extremity: Pulses equal, no cyanosis. Neurovascular intact. Full, normal range of motion. Neuro: Awake and alert, GCS 15, oriented to person, place, time, and situation. Cranial nerves II-XII grossly intact. Motor strength 5/5 in all extremities. Sensory grossly intact. Cerebellar exam normal. Normal gait. Psych: Awake, alert, with orientation to person, place and time. Behavior, mood, and affect are within normal limits. Vital Signs: 12:44 BP 142 / 90; Pulse 92; Resp 19; Temp 100; Pulse Ox 100% ; Weight 68.04 kg; Height 5 ft. jl7 5 in. (165.10 cm); Pain 5/10; 14:46 BP 146 / 100; Pulse 84; Resp 17; Temp 99.2; Pulse Ox 100% ; Pain 0/10; jl7 12:44 Body Mass Index 24.96 (68.04 kg, 165.10 cm) jl7 MDM: 14:50 Patient medically screened. snw 15:37 Data reviewed: vital signs, nurses notes. Data interpreted: Pulse oximetry: on room air snw is 100 %. Interpretation: normal. Counseling: I had a detailed discussion with the patient and/or guardian regarding: the historical points, exam findings, and any diagnostic results supporting the discharge/admit diagnosis, lab results, the need for outpatient follow up, to return to the emergency department if symptoms worsen or persist or if there are any questions or concerns that arise at home. Special discussion: I have referred the patient to see his PCP for further evaluation of high blood pressure. Based on the history and exam findings, there is no indication for further emergent testing or inpatient evaluation. I discussed with the patient/guardian the need to see the OB Gyne specialist for further evaluation of the symptoms. I discussed with the patient/guardian the need to see the primary care provider for further evaluation of the symptoms. 07/15 14:35 Order name: Urine Culture snw 07/15 14:35 Order name: Urine Microscopic Only; Complete Time: 16:01 snw 07/15 15:06 Order name: Urine Dipstick--Ancillary (enter results) 07/15 15:06 Order name: Urine --Ancillary (enter results) 07/15 15:07 Order name: COVID-19 snw 07/15 14:35 Order name: Urine Test (obtain specimen); Complete Time: 15:31 snw 07/15 14:35 Order name: Urine Dipstick-Ancillary (obtain specimen); Complete Time: 15:31 snw Administered Medications: No medications were administered Disposition: 07/16 07:51 Co-signature as Attending Physician, Carlos Alberto Maxwell MD I agree with the assessment and kdr plan of care. Disposition: 07/15/20 15:07 Discharged to Home. Impression: Viral infection, unspecified. - Condition is Stable. - Discharge Instructions: Fever, Adult, Influenza, Adult, Muscle Pain, Adult, Viral Respiratory Infection, First Trimester of , Rehydration, Adult, COVID-19. - Work release form, Medication Reconciliation Form, Thank You Letter, Antibiotic Education, Prescription Opioid Use form. - Follow up: Emergency Department; When: As needed; Reason: Worsening of condition. Follow up: Private Physician; When: 2 - 3 days; Reason: Recheck today's complaints, Continuance of care, Re-evaluation by your physician. Signatures: Dispatcher [employer] EDMS Carlos Alberto Maxwell MD MD kdr Waters, Shelly, DEPARTMENT STORE DOOR GREETER-C DEPARTMENT STORE DOOR GREETER-Csnw Wing Chen RN RN jl7 Corrections: (The following items were deleted from the chart) 07/15 16:17 15:07 07/15/2020 15:07 Discharged to Home. Impression: Viral infection, unspecified. jl7 Condition is Stable. Forms are Medication Reconciliation Form, Thank You Letter, Antibiotic Education, Prescription Opioid Use. Follow up: Emergency Department; When: As needed; Reason: Worsening of condition. Follow up: Private Physician; When: 2 - 3 days; Reason: Recheck today's complaints, Continuance of care, Re-evaluation by your physician. snw
[2020-07-15 15:59] LABS: Urine Bacteria <20 /HPF (<20); Urine Mucus 1+ /HPF (NONE SEEN); Urine RBC <5 /HPF (NONE SEEN)
[2020-07-15 16:30] LABS: Urine Blood NEGATIVE (NEG); Urine Glucose NEGATIVE (NEG); Urine Protein TRACE (NEG); Urine Specific Gravity 1.025 (1.005-1.030); Urine pH 6.5 (5.0-7.0)
[2020-07-16 12:21] VITALS: O2SAT 100
[2020-07-16 12:23] VITALS: BP 146/100; TEMP 99.2
== END 2020-07-15 16:17 | disposition home or self-care (01) ==
LOC: ER 12:04
DX: O98.511 Other viral diseases complicating pregnancy, first trimester (principal); B34.9 Viral infection, unspecified; Z3A.00 Weeks of gestation of pregnancy not specified
CPT/HCPCS: 81003; 81015; 81025; 87086; 87088; 99283

== ENCOUNTER 2020-07-22 11:08 | Emergency (ER) | payer BC ==
--- OUTSIDE RECORDS SUMMARY | 2020-07-22 11:13 | XMS REPORT | Continuity of Care Document ---
:1985 Author Organization [facility] t Address [address] [place] [address] Care Team Providers Name Role Phone Luana BINGHAM, Hussein Morrison Attending Clinician Payers Payer Name Policy Type Policy Number Effective Date Expiration Date Yash anton [facility] [id number] 2019 2029 [facility] SELF-PAYSELF- 00:00:00 23:59:59 PAY [id number] [phone] [place] [address] Problems Condition Condition Condition Status Onset Resolution Last Treating Co mments Source Name Details Category Date Date Treatment Clinician Date Normal Normal Disease Active Alberto labor and labor and 08-17 delivery delivery 00:00: 00 Current Current Disease Active 2018-07 Overview: Sadni is 2-07 Pt with Maci lt with with 00:00: history history of history of 00 of pre-term pre-term labor in labor in labor and third third delivery trimester trimester at 36 weeks gestation 2018 and short interval between . 06/03/2019 Seen and evaluated by [facility] OB . Pt was outside [...] at 29w6d Anemia Anemia Disease Active Overview: [place] during during -05/27/19: Health 00:00: hemoglobi in [...] Date Stop Date Quantity Comments Source History [facility] Alcohol Std Drinks History [facility] Alcohol Binge Sex Assigned At [facility] Tobacco use and 2019-08-17 2019-08-17 Never used [facility] exposure 00:00:00 00:00:00 Alcohol intake 2019-08-17 2019-08-17 [facility] 00[facility]00:00 non-drinker (finding) [facility] 2019-02-28 2019-02-[address] [facility] Alcohol Frequency 00:00:00 00:00:00 History [facility] Food 2018-04-04 2018-04-04 1 [facility] Worry 00:00:00 00:00:00 History [facility] Food 2018-04-04 2018-04-04 1 [facility] Scarcity 00:00:00 00:00:00 Smoking Status Start Date Stop Date Source Never smoker [facility] Medications Ordered Filled Start Stop Current Ordering [...] Harri s (MOTRIN) -21 (spontaneou tablet by [facility] 800 mg 00:00: s vaginal mouth tablet 00 delivery) every 8 hours as needed for Pain. ferrous 2018-07- No Anemia, 325mg QD Take 1 Fletcher ris sulfate 325 008-19 unspecified tablet by [facility] mg (65 mg 00:00: 00:00 type mouth iron) 00 :00 daily tablet (with breakfast) . Immunizations Ordered Immunization Filled Immunization Date Status Commen ts Source Name Name Influenza, 2019-06-17 Completed [facility] Vaccine<FLUCELVAX>(M 00:00:00 ulti-Dose) Tdap (Tetanus 2018-07-[address] [facility] Toxoid, Reduced 00:00:00 Diphtheria Toxoid And Acellular Pertussis, Absorbed) Influenza, 2018-05-21 Completed [facility] Vaccine<FLUCELVAX>(M 00:00:00 ulti-Dose) Tdap (Tetanus 2017-04-[address] [facility] Toxoid, Reduced 00:00:00 Diphtheria Toxoid And Acellular Pertussis, Absorbed) Vital Signs Vital Name Observation Time Observation Value Comments Source Systolic blood pressure 2019-08-19 12:24:00 129 mm[Hg] [facility] Diastolic blood pressure 2019-08-19 12:24:00 83 mm[Hg] [facility] Heart rate 2019-08-19 12:24:00 75 /min [facility] ealt Body temperature 2019-08-19 12:24:00 36.72 Nae Sandi is [facility] Respiratory rate 2019-08-19 12:24:00 18 /min [facility] Oxygen saturation in 2019-08-17 06:15:00 99 /min [facility] Arterial blood by Pulse oximetry Procedures Procedure Date / Time Performed Performing Clinician Sourc e HGB/HCT 2019-08-17 19:26:[address] [facility] ALANINE 2019-08-17 05:58:00 Celena August [facility] AMINOTRASFERASE/ASPARTATE AMINOTRANSFERASE (ALT/AST) TOTAL PROTEIN/CREATININE 2019-08-17 05:58:00 Celena [facility] RATIO, URINE LACTATE DEHYDROGENASE (LDH) 2019-08-17 05:58:00 Celena August [facility] TYPE AND SCREEN 2019-08-17 04:09:00 [facility] 2019-08-17 04:09:00 AgustinaLiz [facility] th HIV AG/AB COMBO 2019-08-17 04:08:00 AgustinaLiz Guerrero rris [facility] SCREENING HEPATITIS B SURFACE AG 2019-08-17 04:08:00 [facility] SYPHILIS SCREEN FOR INFECTION 2019-08-17 04:08:00 Liz Berrios [facility] CBC (WITHOUT DIFFERENTIAL) 2019-08-17 04:08:00 AgustinaLiz H arris [facility] Plan of Care Planned Activity Planned Date Details Comments Source Future Scheduled Test 2022 00:00:00 Screening for [facility] malignant neoplasm of cervix (procedure) [code = 724952450] Future Scheduled Test 2022-07-25 00:00:00 Screening for [facility] malignant neoplasm of cervix (procedure) [code = 766019701] Future Scheduled Test 2020-04-29 00:00:00 IMM Influenza [facility] Seasonal Oct to September (>/= 19 yrs) [code = IMM Influenza Seasonal Oct to September (>/= 19 yrs)] Encounters Start End Encounter Admission Attending Care Care Encounter Source Date/Time Date/Time Type Type Clinicians Facility Department ID 2018-08-13 Inpatient [facility] [id number] H arris 00:00:00 [facility] 2018-08-13 Inpatient [facility] [id number] H arris 00:00:00 [facility] 2018-08-03 Inpatient [facility] [id number] H arris 00:00:00 [facility] 2017-06-15 Inpatient [facility] [id number] H arris 20:08:24 [facility] 2017-06-14 Inpatient [facility] [id number] H arris 22:47:52 Health 2019-07-16 2019-07-16 Outpatient [facility] [id number] [place] 00:00:00 00:00:00 Health 2019-07-09 2019-07-09 Outpatient [facility] [id number] [place] 00:00:00 00:00:00 Health 2019-07-09 2019-07-09 Outpatient [facility] [id number] [place] 00:00:00 00:00:00 Health 2019-07-02 2019-07-02 Outpatient [facility] [id number] [place] 14:55:58 14:55:58 Health 2019-06-23 2019-06-23 Outpatient [facility] [id number] [place] 00:00:00 00:00:00 [facility] 2019-06-17 2019-06-17 Outpatient [facility] [id number] [place] 16:12:47 16:12:47 [facility] 2019-06-17 2019-06-17 Outpatient [facility] [id number] [place] 14:58:36 14:58:36 [facility] 2019-06-17 2019-06-17 Outpatient [facility] [id number] [place] 00:00:00 00:00:00 [facility] 2019-06-17 2019-06-17 Outpatient [facility] [id number] [place] 00:00:00 00:00:00 [facility] 2019-06-02 2019-06-02 Outpatient [facility] [id number] [place] 00:00:00 00:00:00 [facility] 2019-05-27 2019-05-27 Outpatient [facility] [id number] [place] 15:50:59 15:50:59 [facility] 2019-05-06 2019-05-06 Outpatient [facility] [id number] [place] 00:00:00 00:00:00 [facility] 2019-05-01 2019-05-01 Outpatient [facility] [id number] [place] 13:57:04 13:57:04 [facility] 2019-05-01 2019-05-01 Outpatient [facility] [id number] [place] 00:00:00 00:00:00 [facility] 2019-05-01 2019-05-01 Outpatient [facility] [id number] [place] 00:00:00 00:00:00 [facility] 2019-05-01 2019-05-01 Outpatient [facility] [id number] [place] 00:00:00 00:00:00 [facility] 2019-04-30 2019-04-30 Outpatient [facility] [id number] [place] 00:00:00 00:00:00 [facility] 2019-04-23 2019-04-23 Outpatient [facility] [id number] [place] 11:57:19 11:57:19 [facility] 2019-04-16 2019-04-16 Outpatient [facility] [id number] [place] 00:00:00 00:00:00 [facility] 2019-03-13 2019-03-13 Outpatient [facility] [id number] [place] 00:00:00 00:00:00 [facility] 2019-03-12 2019-03-12 Outpatient [facility] [id number] [place] 00:00:00 00:00:00 [facility] 2019-03-07 2019-03-07 Outpatient [facility] [id number] [place] 13:42:26 13:42:26 [facility] 2019-02-28 2019-02-28 Outpatient [facility] [id number] [place] 12:44:17 12:44:17 [facility] 2019-02-28 2019-02-28 Outpatient [facility] [id number] [place] 00:00:00 00:00:00 [facility] 2019-02-12 2019-02-12 Emergency [facility] [id number] [place] 10:34:17 10:34:17 [facility] 2018-11-06 2018-11-06 Outpatient [facility] [id number] [place] 00:00:00 00:00:00 [facility] 2018-09-30 2018-09-30 Outpatient [facility] [id number] [place] 00:00:00 00:00:00 [facility] 2018-09-30 2018-09-30 Outpatient [facility] [id number] [place] 00:00:00 00:00:00 [facility] 2018-09-25 2018-09-25 Outpatient [facility] [id number] [place] 00:00:00 00:00:00 [facility] 2018-09-24 2018-09-24 Outpatient [facility] [id number] [place] 00:00:00 00:00:00 [facility] 2018-08-13 2018-08-13 Inpatient [facility] [id number] [place] 14:09:33 14:09:33 [facility] 2018-08-03 2018-08-03 Outpatient [facility] [id number] [place] 08:30:48 08:30:48 [facility] 2018-08-02 2018-08-02 Inpatient [facility] [id number] [place] 18:20:21 18:20:21 [facility] 2018-08-02 2018-08-02 Outpatient [facility] [id number] [place] 10:46:56 10:46:56 [facility] 2018 2018 Outpatient [facility] [id number] [place] 09:43:06 09:43:06 [facility] 2018-07-19 2018-07-19 Outpatient [facility] [id number] [place] 08:58:18 08:58:18 [facility] 2018-07-15 2018-07-15 Outpatient [facility] [id number] [place] 14:56:06 14:56:06 [facility] 2018-07-08 2018-07-08 Outpatient [facility] [id number] [place] 00:00:00 00:00:00 [facility] 2018-06-24 2018-06-24 Outpatient [facility] [id number] [place] 13:29:46 13:29:46 [facility] 2018-06-24 2018-06-24 Outpatient [facility] [id number] [place] 00:00:00 00:00:00 [facility] 2018-05-22 2018-05-22 Outpatient [facility] [id number] [place] 00:00:00 00:00:00 [facility] 2018-05-21 2018-05-21 Outpatient [facility] [id number] [place] 12:01:37 12:01:37 [facility] 2018-05-21 2018-05-21 Outpatient [facility] [id number] [place] 11:04:03 11:04:03 [facility] 2018-05-06 2018-05-06 Outpatient [facility] [id number] [place] 12:58:42 12:58:42 [facility] 2018-05-06 2018-05-06 Outpatient [facility] [id number] [place] 00:00:00 00:00:00 [facility] 2018-04-22 2018-04-22 Outpatient [facility] [id number] [place] 00:00:00 00:00:00 [facility] 2018-04-22 2018-04-22 Outpatient [facility] [id number] [place] 00:00:00 00:00:00 [facility] 2018-04-04 2018-04-04 Outpatient [facility] [id number] [place] 10:25:29 10:25:29 [facility] 2018-03-29 2018-03-29 Outpatient [facility] [id number] [place] 00:00:00 00:00:00 [facility] 2018-03-29 2018-03-29 Outpatient [facility] [id number] [place] 00:00:00 00:00:00 [facility] 2018-03-27 2018-03-27 Outpatient [facility] [id number] [place] 00:00:00 00:00:00 [facility] 2018-03-18 2018-03-18 Outpatient [facility] [id number] [place] 14:00:21 14:00:21 [facility] 2018-03-14 2018-03-14 Outpatient [facility] [id number] [place] 09:21:05 09:21:05 [facility] 2017 2017 Outpatient [facility] [id number] [place] 15:16:09 15:16:09 [facility] 2017-06-18 2017-06-18 Outpatient [facility] [id number] [place] 00:00:00 00:00:00 [facility] 2017-06-13 2017-06-13 Inpatient [facility] [id number] [place] 13:16:41 13:16:41 [facility] 2017-06-13 2017-06-13 Outpatient [facility] [id number] [place] 11:15:24 11:15:24 [facility] 2017-06-13 2017-06-13 Outpatient [facility] [id number] [place] 00:00:00 00:00:00 [facility] 2017-06-13 2017-06-13 Outpatient [facility] [id number] [place] 00:00:00 00:00:00 [facility] 2017-06-13 2017-06-13 Outpatient [facility] [id number] [place] 00:00:00 00:00:00 [facility] 2017-06-12 2017-06-12 Outpatient [facility] [id number] [place] 00:00:00 00:00:00 [facility] 2017-06-12 2017-06-12 Outpatient [facility] [id number] [place] 00:00:00 00:00:00 [facility] 2017-06-05 2017-06-05 Outpatient [facility] [id number] [place] 11:49:40 11:49:40 [facility] 2017-06-05 2017-06-05 Outpatient [facility] [id number] [place] 09:57:27 09:57:27 [facility] 2017-06-04 2017-06-04 Outpatient [facility] [id number] [place] 00:00:00 00:00:00 [facility] 2017-05-28 2017-05-28 Outpatient [facility] [id number] [place] 16:15:59 16:15:59 [facility] 2017-05-28 2017-05-28 Outpatient [facility] [id number] [place] 14:56:12 14:56:12 [facility] 2017-05-28 2017-05-28 Outpatient [facility] [id number] [place] 12:06:27 12:06:27 [facility] 2017-05-21 2017-05-21 Outpatient [facility] [id number] [place] 00:00:00 00:00:00 [facility] 2017-05-21 2017-05-21 Outpatient [facility] [id number] [place] 00:00:00 00:00:00 [facility] 2017-05-14 2017-05-14 Outpatient [facility] [id number] [place] 17:34:44 17:34:44 [facility] 2017-05-14 2017-05-14 Outpatient [facility] [id number] [place] 15:19:09 15:19:09 [facility] 2017-05-14 2017-05-14 Outpatient [facility] [id number] [place] 00:00:00 00:00:00 [facility] 2017-05-14 2017-05-14 Outpatient [facility] [id number] [place] 00:00:00 00:00:00 [facility] 2017-05-14 2017-05-14 Outpatient [facility] [id number] [place] 00:00:00 00:00:00 [facility] 2017-05-07 2017-05-07 Outpatient [facility] [id number] [place] 10:33:58 10:33:58 [facility] 2017-04-30 2017-04-30 Outpatient [facility] [id number] [place] 14:01:44 14:01:44 [facility] 2017-04-30 2017-04-30 Outpatient [facility] [id number] [place] 11:57:33 11:57:33 [facility] 2017-04-30 2017-04-30 Outpatient [facility] [id number] [place] 10:46:51 10:46:51 [facility] 2017-04-30 2017-04-30 Outpatient [facility] [id number] [place] 00:00:00 00:00:00 [facility] 2017-04-16 2017-04-16 Outpatient [facility] [id number] [place] 13:41:48 13:41:48 [facility] 2017-04-05 2017-04-05 Outpatient [facility] [id number] [place] 09:49:53 09:49:53 [facility] 2017-03-19 2017-03-19 Outpatient [facility] [id number] [place] 13:30:03 13:30:03 [facility] 2017-03-19 2017-03-19 Outpatient [facility] [id number] [place] 11:48:14 11:48:14 [facility] 2017-03-19 2017-03-19 Outpatient [facility] [id number] [place] 00:00:00 00:00:00 [facility] 2017-03-05 2017-03-05 Outpatient [facility] [id number] [place] 11:57:40 11:57:40 [facility] 2017-02-19 2017-02-19 Outpatient [facility] [id number] [place] 15:20:43 15:20:43 [facility] 2017-02-02 2017-02-02 Outpatient [facility] [id number] [place] 12:36:25 12:36:25 Health 2017-01-22 2017-01-22 Outpatient [facility] [id number] [place] 11:44:16 11:44:16 [facility] 2017-01-22 2017-01-22 Outpatient [facility] [id number] [place] 10:25:12 10:25:12 Health 2017-01-03 2017-01-03 Outpatient [facility] [id number] [place] 11:28:23 11:28:23 Health 2016-12-23 2016-12-23 Outpatient [facility] [id number] [place] 14:59:52 14:59:52 Health Results Test Description Test Time Test Comments Results Result Comments Source HGB/HCT 2019-08-17 19:46:00 Test Item Value Reference Range Interpretation Comme nts Hemoglobin (test code = 718-7) 10.6 g/dL 12-16 L Hematocrit (test code = 4544-3) 32.7 % 37-47 L MANAS (test code = MANAS) 8 hours after delivery Lab Interpretation (test code = 24829-2) [facility]normal [facility] [id number] 11:38:00 Test Item Value Reference Range Interpretation Comments TPA (test code = 11738-2) Negative Negative, Equivocal Final Report (test code = Negative Negative 24714-3) Lab Interpretation (test code = Normal 94963-3) [facility][id number] 07:11:00 Test Item Value Reference Range Interpretation Comments ALT (test code = 50694168) 17 U/L 7-52 AST (test code = 52017715) 23 U/L 13-39 Lab Interpretation (test code = Normal 81628-6) [facility] [Lactate Dehydrogenase]2019-08-17 07:11:00 Test Item Value Reference Range Interpretation Comments LDH (test code = 41914067) 224 U/L 140-271 Lab Interpretation (test code = Normal 27717-1) [facility]Creatinine Ratio, [id number] 07:01:00 Test Item Value Reference Range Interpretation Comments Creatinine, Urine (test code = 36 mg/dL 20-320 58362701) Total Protein, Urine (test code = 0.10 g/L <0.19 92145560) Total Protein/Creatinine Ratio, 0.3 % 0- 0.5 % Urine (test code = 77351414) Lab Interpretation (test code = Normal 48758-6) [facility] [id number] 06:03:00 Test Item Value Reference Range Interpretation Comments Specimen Expiration (test 08/20/2019 23:59 code = 06710994) ABO/RH (test code = O POS 28289264) Antibody Screen (test code = NEG 41898966) [facility] [place] [id number] 05:36:00 Test Item Value Reference Range Interpretation Comments Hep B Surface Ag (test code = Negative Negative 5196-1) Lab Interpretation (test code = Normal 92964-3) [facility]HIV-2 [id number] 05:36:00 Test Item Value Reference Range Interpretation Comments HIV Ag/Ab Combo (test code = Negative Negative 34597-2) Lab Interpretation (test code = Normal 17827-8) [id number] 04:54:00 Test Item Value Reference Range Interpretation [...] g/dL 32-36 L RDW (test code = 59734-8) 41.5 fL 36.4-46.3 Platelet (test code = 777-3) 166 K/uL 150-400 Mean Platelet Volume (test code = 10.9 fL 9.4-12.4 62418-1) Percent NRBC (test code = 13887342) 0.0 % Lab Interpretation (test code = Abnormal 07738-2) [facility]
--- OUTSIDE RECORDS SUMMARY | 2020-07-22 11:13 | XMS REPORT | Clinical Summary ---
:1985 Author Organization [facility] Distr ict Address [address] [place] [address] Care Team Providers Name Role Phone Unavailable [...] . 06/03/2019 S een and evaluated by [facility] OB . Pt was [...] MD vaginal delive ry) (Primary Dx) after 07/22/2019 Immunizations Name Administration Dates Next Due Influenza [...] Comments Blood Pressure 129/83 08/19/2019 12:24 PM GENERAL EDUCATION PROFESSOR Pulse 75 08/19/2019 12:24 PM GENERAL EDUCATION PROFESSOR Temperature 36.7 C (98.1 F) 08/19/2019 12:24 PM GENERAL EDUCATION PROFESSOR Respiratory Rate 18 08/19/2019 12:24 PM GENERAL EDUCATION PROFESSOR Oxygen Saturation 99% 08/17/2019 6:15 AM GENERAL EDUCATION PROFESSOR Inhaled Oxygen Concentration - - Weight - - Height - - Body Mass Index - - Plan of Treatment Date Type Specialty Care Team Description 08/06/2020 Office Visit Kelly Foy MD [address] [facility] [address] [place], [place] [address] [phone] Health Maintenance Due Date Last Done Comments IMM Influenza Seasonal Oct to 04/29/2020 06/17/2019, 2017 (>/= 19 yrs) Pap Cervical Cancer Scrn 07/25/2022 07/25/2017 (Previously completed - External) HPV Cervical Cancer Scrn 2022 2017, 01/22/2017 Procedures Procedure Name Priority Date/Time Associated Comments Diagnosis HGB/HCT Routine 08/17/2019 7:26 Results for this PM GENERAL EDUCATION PROFESSOR procedure are i n the results section. LACTATE DEHYDROGENASE STAT 08/17/2019 5:58 Re sults for this (LDH) AM GENERAL EDUCATION PROFESSOR procedure are i n the results section. TOTAL PROTEIN/CREATININE STAT 08/17/2019 5:58 Results for this RATIO, URINE AM GENERAL EDUCATION PROFESSOR procedure are i n the results section. ALANINE STAT 08/17/2019 5:58 Results for this AMINOTRASFERASE/ASPARTAT AM GENERAL EDUCATION PROFESSOR pro cedure are in E AMINOTRANSFERASE the resul ts (ALT/AST) section. T&S - COLLECTION STAT 08/17/2019 4:09 Results for this AM GENERAL EDUCATION PROFESSOR procedure are i n the results section. TYPE AND SCREEN STAT 08/17/2019 4:09 Results for this AM GENERAL EDUCATION PROFESSOR procedure are i n the results section. CBC (WITHOUT STAT 08/17/2019 4:08 Results for this DIFFERENTIAL) AM GENERAL EDUCATION PROFESSOR procedure are in the results section. SYPHILIS SCREEN FOR STAT 08/17/2019 4:08 Resu lts for this INFECTION AM GENERAL EDUCATION PROFESSOR procedure are i n the results section. HEPATITIS B SURFACE AG STAT 08/17/2019 4:08 R esults for this AM GENERAL EDUCATION PROFESSOR procedure are i n the results section. HIV AG/AB COMBO STAT 08/17/2019 4:08 Results for this SCREENING AM GENERAL EDUCATION PROFESSOR procedur e are in the results section. after 07/22/2019 Results HGB/HCT (08/17/2019 7:26 PM GENERAL EDUCATION PROFESSOR) Pathologist Sig nature Hemoglobin 10.6 (L) 12.0 - 16.0 g/dL [facility] Hematocrit 32.7 (L) 37.0 - 47.0 % [facility] Specimen Blood Narrative Performed At 8 hours after delivery [facility] Performing Organization Address City/State/ZIP Code Phon e Number [facility] [address] [place] [address] Total Protein/Creatinine Ratio, Urine (08/17/2019 5:58 AM GENERAL EDUCATION PROFESSOR) Pathologist Sig nature Creatinine, Urine 36 20 - 320 mg/dL [facility] Total Protein, Urine 0.10 <0.19 g/L [facility] Total 0.3 0 - 0.5 % % [facility] Protein/Creatinine Ratio, Urine Specimen Urine - Voided, urine Performing Organization Address [facility] Phon e Number [facility] [address] [place] [address] [phone] LDH [Lactate Dehydrogenase] (08/17/2019 5:58 AM GENERAL EDUCATION PROFESSOR) Pathologist Sig nature LDH 224 140 - 271 U/L [facility] Specimen Blood Performing Organization Address [facility] Phon e Number [facility] [address] [place] [address] [phone] ALT/AST (08/17/2019 5:58 AM GENERAL EDUCATION PROFESSOR) Pathologist Sig nature ALT 17 7 - 52 U/L [facility] AST 23 13 - 39 U/L [facility] Specimen Blood Performing Organization Address [facility] Phon e Number [facility] [address] [place] [address] T&S Collection (08/17/2019 4:09 AM GENERAL EDUCATION PROFESSOR) Pathologist Sig nature Specimen Expiration 08/20/2019 23:59 BT BLOOD BANK ABO/RH O POS BT BLOOD BANK Antibody Screen NEG BT BLOOD BANK Specimen Blood Performing Organization Address [facility] Phon e Number BT BLOOD BANK [address] [place] [address] Syphilis Screen for Infection (08/17/2019 4:08 AM GENERAL EDUCATION PROFESSOR) Pathologist Sig nature TPA Negative Negative, Equivocal [facility] Final Report Negative Negative [facility] Specimen Blood Performing Organization Address [facility] Phon e Number [facility] [address] [place], [place] [phone] HIV-1/HIV-2 SCREENING (08/17/2019 4:08 AM GENERAL EDUCATION PROFESSOR) Pathologist Sig nature HIV Ag/Ab Combo Negative Negative [facility] Specimen Blood Performing Organization Address [facility] Phon e Number [facility] [address] [place], [place] [id number] Hep B [place] Ag (08/17/2019 4:08 AM GENERAL EDUCATION PROFESSOR) Pathologist Sig nature Hep B Surface Ag Negative Negative [facility] Specimen Blood Performing Organization Address City/State/ZIP Code Phon e Number [facility] [address] [place] [address] CBC (08/17/2019 4:08 AM GENERAL EDUCATION PROFESSOR) Pathologist Sig nature WBC 12.4 (H) 4.5 [...] Number [facility] [address] [place] [address] after 07/22/2019 Insurance Payer Benefit Plan / Subscriber ID Effective Dates Phone Addre ss Type Group [facility] SELF-PAY [id number] 2019- [phone] ABDI SELF-PAY SCREENED [address] [place] [address] Guarantor Name Account Type Relation to Date of Phone Billing Address Patient CHELSYKATERINELORRIE Personal/Famil Head of 1985 [phone] [address] sebastian Household (Self) (Home) [place] [address] [place] (Work) [address] Lorrie Dewey Marlon Self 1985 [address] (Home) [place], [place] [phone] (Work) Advance Directives Code Status Date Activated Date Inactivated Comments Full Code 08/17/2019 4:54 AM 08/19/2019 4:25 PM Full Code 08/17/2019 3:30 AM 08/17/2019 4:54 AM Full Code 08/14/2018 5:05 AM 08/15/2018 8:05 PM Full Code 08/13/2018 3:59 PM 08/14/2018 5:05 AM Full Code 08/02/2018 9:21 PM 08/03/2018 5:25 PM
--- NOTE | 2020-07-22 13:32 | EDPHYS ---
Physician Documentation [facility] Name: Rachel Dewey Age: 34 yrs Sex: Female : 1985 Arrival Date: 07/22/2020 Time: 11:10 Bed DIS4 Private MD: ED Physician Gurvinder Hinojosa HPI: 07/22 12:20 This 34 yrs old Black Female presents to ER via Ambulatory with complaints of Cold cp Symptoms, Vomiting. 12:20 The patient or guardian reports cough, that is intermittent. Onset: The cp symptoms/episode began/occurred 7 day(s) ago. 12:20 Associated signs and symptoms: Pertinent positives: vomiting, Pertinent negatives: cp diarrhea, fever. Severity of symptoms: in the emergency department the symptoms are unchanged despite home interventions. 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 - Social history:: Smoking status: Patient denies any tobacco usage or history of. ROS: 12:25 Constitutional: Negative for fever, poor PO intake. cp 12:25 Eyes: Negative for injury, pain, redness, and discharge. cp 12:25 ENT: Negative for ear pain, difficulty swallowing, difficulty handling secretions. 12:25 Cardiovascular: Negative for chest pain. 12:25 Respiratory: Positive for cough, Negative for shortness of breath, wheezing. 12:25 Abdomen/GI: Negative for abdominal pain, diarrhea, constipation, active vomiting. 12:25 Neuro: Negative for altered mental status, headache, weakness. 12:25 All other systems are negative. Exam: 12:30 Constitutional: The patient appears in no acute distress, alert, awake, non-toxic, well cp developed, well nourished. 12:30 Head/Face: Normocephalic, atraumatic. cp 12:30 Eyes: Periorbital structures: appear normal, Conjunctiva: normal, no exudate, no injection, Lids and lashes: appear normal, bilaterally. 12:30 ENT: External ear(s): are unremarkable, Nose: is normal, Posterior pharynx: Airway: no evidence of obstruction, patent. 12:30 Neck: ROM/movement: is normal, is supple, without pain, no range of motions limitations, no meningismus. 12:30 Chest/axilla: Inspection: normal. 12:30 Cardiovascular: Rate: normal, Rhythm: regular. 12:30 Abdomen/GI: Exam negative for discomfort, distension, guarding, Inspection: abdomen appears normal. 12:30 Respiratory: the patient does not display signs of respiratory distress, Respirations: cp labored breathing, is not present, intercostal retractions, are absent, shallow respirations, are not present, Breath sounds: bronchial sounds, that are mild, are heard diffusely, decreased breath sounds, are not appreciated, stridor, is not appreciated, + upper airway congestion. wheezing: is not appreciated. Vital Signs: 11:17 BP 134 / 103; Pulse 86; Resp 17; Temp 98.6; Pulse Ox 100% ; Weight 72.57 kg; Height 5 ll1 ft. 5 in. (165.10 cm); Pain 0/10; 12:47 BP 132 / 96; Pulse 79; Resp 16 S; Pulse Ox 100% on R/A; ca1 13:54 BP 131 / 87; Pulse 81; Resp 16 S; Pulse Ox 100% on R/A; ca1 11:17 Body Mass Index 26.63 (72.57 kg, 165.10 cm) ll1 MDM: 11:51 Patient medically screened. [facility] 13:30 Differential diagnosis: bronchitis, flu, URI, pneumonia. 13:30 Data reviewed: vital signs, nurses notes, lab test result(s), and as a result, I will cp discharge patient. Counseling: I had a detailed discussion with the patient and/or guardian regarding: the historical points, exam findings, and any diagnostic results supporting the discharge/admit diagnosis, lab results, to return to the emergency department if symptoms worsen or persist or if there are any questions or concerns that arise at home. 07/22 12:07 Order name: COVID-19 07/22 12:07 Order name: Influenza Screen (a \T\ B) 07/22 12:07 Order name: Strep cp 07/22 12:08 Order name: CORONAVIRUS EDMS 07/22 13:19 Order name: Throat Culture EDMS Administered Medications: No medications were administered Disposition: 07/22/20 13:31 Discharged to Home. Impression: Acute bronchitis. - Condition is Stable. - Discharge Instructions: Acute Bronchitis, Adult, COVID-19. - Prescriptions for Zithromax Z- Sincere 250 mg Oral Tablet - take 1 tablet by ORAL route as directed for 5 days Day 1 - take two (2) tablets one time. Day 2, 3, 4 , 5 take one (1) tablet once daily.; 6 tablet. - Medication Reconciliation Form, Thank You Letter, Antibiotic Education, Prescription Opioid Use, Work release form form. - Follow up: Private Physician; When: 2 - 3 days; Reason: Worsening of condition. - Problem is new. - Symptoms are unchanged. Addendum: 07/24/2020 11:35 Co-signature as Attending Physician, Gurvinder Hinojosa MD I agree with the assessment and c guerrero plan of care. Signatures: Dispatcher [employer] EDOH Gurvinder Hinojosa MD MD cha Page, Corey, PA PA cp Carolyn Martins, RN RN ca1 Natalee Elder RN RN ll1 Corrections: (The following items were deleted from the chart) 07/22 13:54 13:31 07/22/2020 13:31 Discharged to Home. Impression: Acute bronchitis. Condition is ca1 Stable. Forms are Medication Reconciliation Form, Thank You Letter, Antibiotic Education, Prescription Opioid Use. Follow up: Private Physician; When: 2 - 3 days; Reason: Worsening of condition. Problem is new. Symptoms are unchanged. cp
--- NOTE | 2020-07-22 13:32 | ER ---
Nurse's Notes [facility] Name: Rachel Dewey Age: 34 yrs Sex: Female : 1985 Arrival Date: 07/22/2020 Time: 11:10 Bed DIS4 Private MD: Diagnosis: Acute bronchitis Presentation: 07/22 11:17 Chief complaint: Patient states: Cough, congestion, N/.V since the . States she is ll1 about 1 month . Coronavirus screen: Client denies travel out of the [place] in the last 14 days. cough unrelated to allergies, fatigue, nausea, Client presents with at least one sign or symptom that may indicate coronavirus-19. Standard/surgical mask placed on the client. Ebola Screen: Patient denies travel to an Ebola-affected area in the 21 days before illness onset. Initial Sepsis Screen: Does the patient meet any 2 criteria? No. Patient's initial sepsis screen is negative. Does the patient have a suspected source of infection? Yes: Productive cough/pneumonia. Risk Assessment: Do you want to hurt yourself or someone else? Patient reports no desire to harm self or others. Onset of symptoms was July 15, 2020. 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 - Social history:: Smoking status: Patient denies any tobacco usage or history of. Screenin:10 Abuse screen: Denies threats or abuse. Denies injuries from another. Nutritional ca1 screening: No deficits noted. Tuberculosis screening: No symptoms or risk factors identified. Fall Risk None identified. Assessment: 12:10 General: Appears in no apparent distress. comfortable, Behavior is calm, cooperative, ca1 appropriate for age. Pain: Denies pain. Neuro: Level of Consciousness is awake, alert, obeys commands, Oriented to person, place, time, situation. Cardiovascular: Heart tones S1 S2 present Capillary refill < 3 seconds Patient's skin is warm and dry. Respiratory: Airway is patent Respiratory effort is even, unlabored, Respiratory pattern is regular, symmetrical, Breath sounds are clear bilaterally. GI: Abdomen is flat, non-distended, Bowel sounds present X 4 quads. Abd is soft and non tender X 4 quads. Reports nausea, vomiting. : No signs and/or symptoms were reported regarding the genitourinary system. EENT: No signs and/or symptoms were reported regarding the EENT system. Derm: Skin is intact, is healthy with good turgor, Skin is pink, warm \T\ dry. Musculoskeletal: Circulation, motion, and sensation intact. Capillary refill < 3 seconds. 12:47 Reassessment: Patient appears in no apparent distress at this time. Patient and/or ca1 family updated on plan of care and expected duration. Pain level reassessed. Patient is alert, oriented x 3, equal unlabored respirations, skin warm/dry/pink. 13:54 Reassessment: Patient appears in no apparent distress at this time. Patient is alert, ca1 oriented x 3, equal unlabored respirations, skin warm/dry/pink. Vital Signs: 11:17 BP 134 / 103; Pulse 86; Resp 17; Temp 98.6; Pulse Ox 100% ; Weight 72.57 kg; Height 5 ll1 ft. 5 in. (165.10 cm); Pain 0/10; 12:47 BP 132 / 96; Pulse 79; Resp 16 S; Pulse Ox 100% on R/A; ca1 13:54 BP 131 / 87; Pulse 81; Resp 16 S; Pulse Ox 100% on R/A; ca1 11:17 Body Mass Index 26.63 (72.57 kg, 165.10 cm) ll1 ED Course: 11:10 Patient arrived in ED. as 11:18 Triage completed. ll1 11:19 Arm band placed on. ll1 11:50 Gurvinder Teixeira PA is PHCP. cp 11:50 Gurvinder Hinojosa MD is Attending Physician. cp 12:00 Carolyn Martins RN is Primary Nurse. ca1 12:10 Patient has correct armband on for positive identification. Placed in gown. Bed in low ca1 position. Call light in reach. Side rails up X 1. Pulse ox on. NIBP on. Warm blanket given. 13:54 No provider procedures requiring assistance completed. Patient did not have IV access ca1 during this emergency room visit. Administered Medications: No medications were administered Outcome: 13:31 Discharge ordered by . cp 13:54 Discharged to home ambulatory, with family. ca1 13:54 Condition: stable 13:54 Discharge instructions given to patient, Instructed on discharge instructions, follow up and referral plans. medication usage, Demonstrated understanding of instructions, follow-up care, medications, Prescriptions given X 1. 13:54 Patient left the ED. ca1 Signatures: Mary Acharya Corey, PA PA cp Acob, Cheryl RN RN ca1 Natalee Elder RN RN ll1
[2020-07-22 14:08] VITALS: TEMP 98.6; O2SAT 100
[2020-07-22 14:10] VITALS: BP 131/87
== END 2020-07-22 13:54 | disposition home or self-care (01) ==
LOC: ER 11:08
DX: U07.1 COVID-19 (principal); J20.9 Acute bronchitis, unspecified
CPT/HCPCS: 87070; 87081; 87804 ×2; 99283; U0002

== ENCOUNTER 2020-08-04 | Emergency (ER) | payer BC ==
--- OUTSIDE RECORDS SUMMARY | 2020-08-04 14:06 | XMS REPORT | Clinical Summary ---
:1985 Author Organization [facility] Dist[facility] Address [address] [place] [address] Care Team Providers Name Role Phone Unavailable [...] . 06/03/2019 S een and evaluated by [facility] OB . Pt was [...] MD vaginal delive ry) (Primary Dx) after 08/04/2019 Immunizations Name Administration Dates Next Due Influenza [...] Comments Blood Pressure 129/83 08/19/2019 12:24 PM STRAND AND BINDER CONTROLLER Pulse 75 08/19/2019 12:24 PM STRAND AND BINDER CONTROLLER Temperature 36.7 C (98.1 F) 08/19/2019 12:24 PM STRAND AND BINDER CONTROLLER Respiratory Rate 18 08/19/2019 12:24 PM STRAND AND BINDER CONTROLLER Oxygen Saturation 99% 08/17/2019 6:15 AM STRAND AND BINDER CONTROLLER Inhaled Oxygen Concentration - - Weight - - Height - - Body Mass Index - - Plan of Treatment Date Type Specialty Care Team Description 08/06/2020 Office Visit Kelly Foy MD [address] [facility] [address] [place], [place] [address] [phone] Health Maintenance Due Date Last Done Comments IMM Influenza Seasonal Oct to 04/29/2020 06/17/2019, 2017 (>/= 19 yrs) Pap Cervical Cancer Scrn 07/25/2022 07/25/2017 (Previously completed - External) HPV Cervical Cancer Scrn 2022 2017, 01/22/2017 Procedures Procedure Name Priority Date/Time Associated Comments Diagnosis HGB/HCT Routine 08/17/2019 7:26 Results for this PM STRAND AND BINDER CONTROLLER procedure are i n the results section. LACTATE DEHYDROGENASE STAT 08/17/2019 5:58 Re sults for this (LDH) AM STRAND AND BINDER CONTROLLER procedure are i n the results section. TOTAL PROTEIN/CREATININE STAT 08/17/2019 5:58 Results for this RATIO, URINE AM STRAND AND BINDER CONTROLLER procedure are i n the results section. ALANINE STAT 08/17/2019 5:58 Results for this AMINOTRASFERASE/ASPARTAT AM STRAND AND BINDER CONTROLLER pro cedure are in E AMINOTRANSFERASE the resul ts (ALT/AST) section. T&S - COLLECTION STAT 08/17/2019 4:09 Results for this AM STRAND AND BINDER CONTROLLER procedure are i n the results section. TYPE AND SCREEN STAT 08/17/2019 4:09 Results for this AM STRAND AND BINDER CONTROLLER procedure are i n the results section. CBC (WITHOUT STAT 08/17/2019 4:08 Results for this DIFFERENTIAL) AM STRAND AND BINDER CONTROLLER procedure are in the results section. SYPHILIS SCREEN FOR STAT 08/17/2019 4:08 Resu lts for this INFECTION AM STRAND AND BINDER CONTROLLER procedure are i n the results section. HEPATITIS B SURFACE AG STAT 08/17/2019 4:08 R esults for this AM STRAND AND BINDER CONTROLLER procedure are i n the results section. HIV AG/AB COMBO STAT 08/17/2019 4:08 Results for this SCREENING AM STRAND AND BINDER CONTROLLER procedur e are in the results section. after 08/04/2019 Results HGB/HCT (08/17/2019 7:26 PM STRAND AND BINDER CONTROLLER) Pathologist Sig nature Hemoglobin 10.6 (L) 12.0 - 16.0 g/dL [facility] Hematocrit 32.7 (L) 37.0 - 47.0 % [facility] Specimen Blood Narrative Performed At 8 hours after delivery [facility] Performing Organization Address City/State/ZIP Code Phon e Number [facility] [address] [place] [address] Total Protein/Creatinine Ratio, Urine (08/17/2019 5:58 AM STRAND AND BINDER CONTROLLER) Pathologist Sig nature Creatinine, Urine 36 20 - 320 mg/dL [facility] Total Protein, Urine 0.10 <0.19 g/L [facility] Total 0.3 0 - 0.5 % % [facility] Protein/Creatinine Ratio, Urine Specimen Urine - Voided, urine Performing Organization Address [facility] Phon e Number [facility] [address] [place] [address] [phone] LDH [Lactate Dehydrogenase] (08/17/2019 5:58 AM STRAND AND BINDER CONTROLLER) Pathologist Sig nature LDH 224 140 - 271 U/L [facility] Specimen Blood Performing Organization Address [facility] Phon e Number [facility] [address] [place] [address] ALT/AST (08/17/2019 5:58 AM STRAND AND BINDER CONTROLLER) Pathologist Sig nature ALT 17 7 - 52 U/L [facility] AST 23 13 - 39 U/L [facility] Specimen Blood Performing Organization Address [facility] Phon e Number [facility] [address] [place] [address] T&S Collection (08/17/2019 4:09 AM STRAND AND BINDER CONTROLLER) Pathologist Sig nature Specimen Expiration 08/20/2019 23:59 BT BLOOD BANK ABO/RH O POS BT BLOOD BANK Antibody Screen NEG BT BLOOD BANK Specimen Blood Performing Organization Address [facility] Phon e Number BT BLOOD BANK [address] [place] [address] Syphilis Screen for Infection (08/17/2019 4:08 AM STRAND AND BINDER CONTROLLER) Pathologist Sig nature TPA Negative Negative, Equivocal [facility] Final Report Negative Negative [facility] Specimen Blood Performing Organization Address [facility] Phon e Number [facility] [address] [place], [place] [phone] HIV-1/HIV-2 SCREENING (08/17/2019 4:08 AM STRAND AND BINDER CONTROLLER) Pathologist Sig nature HIV Ag/Ab Combo Negative Negative [facility] Specimen Blood Performing Organization Address [facility] Phon e Number [facility] [address] [place], [place] [phone] Hep B [place] Ag (08/17/2019 4:08 AM STRAND AND BINDER CONTROLLER) Pathologist Sig nature Hep B Surface Ag Negative Negative [facility] Specimen Blood Performing Organization Address City/State/ZIP Code Phon e Number [facility] [address] [place] [address] CBC (08/17/2019 4:08 AM STRAND AND BINDER CONTROLLER) Pathologist Sig nature WBC 12.4 (H) 4.5 [...] Number [facility] [address] [place] [address] after 08/04/2019 Insurance Payer Benefit Plan / Subscriber ID Effective Dates Phone Addre ss Type Group [facility] SELF-PAY [id number] 2019- [phone] ABDI SELF-PAY SCREENED [address] [place] [address] Guarantor Name Account Type Relation to Date of Phone Billing Address Patient LORRIE DEWEY Personal/Famil Head of 1985 [phone] [address]bastian Household (Self) (Home) [place] [address] [place], [place] (Work) [address] Lorrie Dewey Marlon Self 1985 [address] (Home) [place], [place] [phone] (Work) Advance Directives Code Status Date Activated Date Inactivated Comments Full Code 08/17/2019 4:54 AM 08/19/2019 4:25 PM Full Code 08/17/2019 3:30 AM 08/17/2019 4:54 AM Full Code 08/14/2018 5:05 AM 08/15/2018 8:05 PM Full Code 08/13/2018 3:59 PM 08/14/2018 5:05 AM Full Code 08/02/2018 9:21 PM 08/03/2018 5:25 PM
--- OUTSIDE RECORDS SUMMARY | 2020-08-04 14:07 | XMS REPORT | Continuity of Care Document ---
:1985 Author Organization [facility] t Address [address] [place] [address] Care Team Providers Name Role Phone Hussein Craft MD Attending Clinician Payers Payer Name Policy Type Policy Number Effective Date Expiration Date S sloane [facility] [id number] 2019 2029 [facility] SELF-PAYSELF- 00:00:00 23:59:59 PAY [phone] [place] [address] Problems Condition Condition Condition Status Onset Resolution Last Treating Co mments Source Name Details Category Date Date Treatment Clinician Date Normal Normal Disease Active [facility] labor and labor and 08-17 delivery delivery 00:00: 00 Current Current Disease Active 2018-07 Overview: Sandi is 2-07 Pt with Maci lt with with 00:00: history history of history of 00 of pre-term pre-term labor in labor in labor and third third delivery trimester trimester at 36 weeks gestation 2018 and short interval between . 06/03/2019 Seen and evaluated by [facility] OB . Pt was outside of [...] CBC RPR HIV GBS - flu shot 10/29/201 9Ultrasou nds:2018: 53%ile for 23w1d, posterior placenta, cervix 4.8cm, no anomalies seen 06/17/19 at 29w6d Anemia Anemia Disease Active Overview: [facility] during during 8-05/27/19: Health 00:00: hemoglobi in second in second [...] Date Stop Date Quantity Comments Source History [facility] Alcohol Std Drinks History [facility] Alcohol Binge Sex Assigned At [facility] alth Tobacco use and 2019-08-17 2019-08-17 Never used [facility] exposure 00:00:00 00:00:00 Alcohol intake 2019-08-17 2019-08-17 [facility]00 non-drinker (finding) History [facility] 2019-02-28 2019-02-28 1 [facility] Alcohol Frequency 00:00:00 00:00:[address] [facility] Food 2018-04-04 2018-04-04 1 [facility] Worry 00:00:00 00:00:[address] [facility] Food 2018-04-04 2018-04-04 1 [facility] Scarcity 00:00:00 00:00:00 Smoking Status Start Date Stop Date Source Never smoker [facility] Medications Ordered Filled Start Stop Current Ordering Indication Dosage Frequency Signature Comments Components Source Medication Medication Date Date Medication? Clinician (SIG) Name Name Yes Take by [facility] 25/iron 1-21 mouth. Health fum/folic/d 14:25: guerrero 02 (-1 OR) Yes 1{tbl} QD Take 1 Harri s vitamin 1-21 (spontaneou tablet by Health tablet 00:00: s vaginal mouth 00 delivery) daily Pharmacist may select any Vitamin product covered on the patient's insurance for new rxs and refills. ibuprofen Yes 800mg Take 1 Harri s (MOTRIN) -21 (spontaneou tablet by [facility] 800 mg 00:00: s vaginal mouth tablet 00 delivery) every 8 hours as needed for Pain. ferrous 2018-07- No Anemia, 325mg QD Take 1 Fletcher ris sulfate 325 008-19 unspecified tablet by [facility] mg (65 mg 00:00: 00:00 type mouth iron) 00 :00 daily tablet (with breakfast) . Immunizations Ordered Immunization Filled Immunization Date Status Commen ts Source Name Name Influenza, 2019-06-17 Completed [facility] Vaccine<FLUCELVAX>(M 00:00:00 ulti-Dose) Tdap (Tetanus 2018-07-15 Completed Located within [facility] Toxoid, Reduced 00:00:00 Diphtheria Toxoid And Acellular Pertussis, Absorbed) Influenza, 2018-05-21 Completed [facility] Vaccine<FLUCELVAX>(M 00:00:00 ulti-Dose) Tdap (Tetanus 2017-04-05 Completed Located within [facility] Toxoid, Reduced 00:00:00 Diphtheria Toxoid And Acellular Pertussis, Absorbed) Vital Signs Vital Name Observation Time Observation Value Comments Source Systolic blood pressure 2019-08-19 12:24:00 129 mm[Hg] [facility] Diastolic blood pressure 2019-08-19 12:24:00 83 mm[Hg] [facility] Heart rate 2019-08-19 12:24:00 75 /min [facility] ealt Body temperature 2019-08-19 12:24:00 36.72 Nae Sandi is [facility] Respiratory rate 2019-08-19 12:24:00 18 /min [facility] Oxygen saturation in 2019-08-17 06:15:00 99 /min [facility] Arterial blood by Pulse oximetry Procedures Procedure Date / Time Performed Performing Clinician Sourc e HGB/HCT 2019-08-17 19:26:00 Liz Berrios [facility] ALANINE 2019-08-17 05:58:00 Celena August [facility] AMINOTRASFERASE/ASPARTATE AMINOTRANSFERASE (ALT/AST) TOTAL PROTEIN/CREATININE 2019-08-17 05:58:00 Celena August [facility] RATIO, URINE LACTATE DEHYDROGENASE (LDH) 2019-08-17 05:58:00 Celena August [facility] TYPE AND SCREEN 2019-08-17 04:09:00 [facility] 2019-08-17 04:09:00 AgustinaLiz [facility] th HIV AG/AB COMBO 2019-08-17 04:08:00 [facility]inaLiz [facility] SCREENING HEPATITIS B SURFACE AG 2019-08-17 04:08:00 [facility]rios [facility] SYPHILIS SCREEN FOR INFECTION 2019-08-17 04:08:00 Liz Berrios [facility] CBC (WITHOUT DIFFERENTIAL) 2019-08-17 04:08:00 AgustinaLiz H arris [facility] Plan of Care Planned Activity Planned Date Details Comments Source Future Scheduled Test 2022 00:00:00 Screening for [facility] malignant neoplasm of cervix (procedure) [code = 701109359] Future Scheduled Test 2022-07-25 00:00:00 Screening for [facility] malignant neoplasm of cervix (procedure) [code = 078994560] Future Scheduled Test 2020-04-29 00:00:00 IMM Influenza [facility] Seasonal Oct to September (>/= 19 yrs) [code = IMM Influenza Seasonal Oct to September (>/= 19 yrs)] Encounters Start End Encounter Admission Attending Care Care Encounter Source Date/Time Date/Time Type Type Clinicians Facility Department ID 2018-08-13 Inpatient [facility] [id number] H arris 00:00:00 [facility] 2018-08-13 Inpatient [facility] [id number] H arris 00:00:00 [facility] 2018-08-03 Inpatient [facility] [id number] H arris 00:00:00 [facility] 2017-06-15 Inpatient [facility] [id number] H arris 20:08:24 [facility] 2017-06-14 Inpatient [facility] [id number] H arris 22:47:52 Health 2019-07-16 2019-07-16 Outpatient [facility] [id number] [facility] 00:00:00 00:00:00 Health 2019-07-09 2019-07-09 Outpatient [facility] [id number] [facility] [place] 00:00:00 00:00:00 Health 2019-07-09 2019-07-09 Outpatient [facility] [id number] [place] 00:00:00 00:00:00 Health 2019-07-02 2019-07-02 Outpatient [facility] [id number] [place] 14:55:58 14:55:58 Health 2019-06-23 2019-06-23 Outpatient [facility] [id number] [place] 00:00:00 00:00:00 [facility] 2019-06-17 2019-06-17 Outpatient [facility] [id number] [place] 16:12:47 16:12:47 [facility] 2019-06-17 2019-06-17 Outpatient [facility] [id number] [place] 14:58:36 14:58:36 [facility] 2019-06-17 2019-06-17 Outpatient [facility] [id number] [place] 00:00:00 00:00:00 [facility] 2019-06-17 2019-06-17 Outpatient [facility] [id number] [place] 00:00:00 00:00:00 [facility] 2019-06-02 2019-06-02 Outpatient [facility] [id number] [place] 00:00:00 00:00:00 [facility] 2019-05-27 2019-05-27 Outpatient [facility] [id number] [place] 15:50:59 15:50:59 [facility] 2019-05-06 2019-05-06 Outpatient [facility] [id number] [place] 00:00:00 00:00:00 [facility] 2019-05-01 2019-05-01 Outpatient [facility] [id number] [place] 13:57:04 13:57:04 [facility] 2019-05-01 2019-05-01 Outpatient [facility] [id number] [place] 00:00:00 00:00:00 [facility] 2019-05-01 2019-05-01 Outpatient [facility] [id number] [place] 00:00:00 00:00:00 [facility] 2019-05-01 2019-05-01 Outpatient [facility] [id number] [place] 00:00:00 00:00:00 [facility] 2019-04-30 2019-04-30 Outpatient [facility] [id number] [place] 00:00:00 00:00:00 [facility] 2019-04-23 2019-04-23 Outpatient [facility] [id number] [place] 11:57:19 11:57:19 [facility] 2019-04-16 2019-04-16 Outpatient [facility] [id number] [place] 00:00:00 00:00:00 [facility] 2019-03-13 2019-03-13 Outpatient [facility] [id number] [place] 00:00:00 00:00:00 [facility] 2019-03-12 2019-03-12 Outpatient [facility] [id number] [place] 00:00:00 00:00:00 [facility] 2019-03-07 2019-03-07 Outpatient [facility] [id number] [place] 13:42:26 13:42:26 [facility] 2019-02-28 2019-02-28 Outpatient [facility] [id number] [place] 12:44:17 12:44:17 [facility] 2019-02-28 2019-02-28 Outpatient [facility] [id number] [place] 00:00:00 00:00:00 [facility] 2019-02-12 2019-02-12 Emergency [facility] [id number] [place] 10:34:17 10:34:17 [facility] 2018-11-06 2018-11-06 Outpatient [facility] [id number] [place] 00:00:00 00:00:00 [facility] 2018-09-30 2018-09-30 Outpatient [facility] [id number] [place] 00:00:00 00:00:00 [facility] 2018-09-30 2018-09-30 Outpatient [facility] [id number] [place] 00:00:00 00:00:00 [facility] 2018-09-25 2018-09-25 Outpatient [facility] [id number] [place] 00:00:00 00:00:00 [facility] 2018-09-24 2018-09-24 Outpatient [facility] [id number] [place] 00:00:00 00:00:00 [facility] 2018-08-13 2018-08-13 Inpatient [facility] [id number] [place] 14:09:33 14:09:33 [facility] 2018-08-03 2018-08-03 Outpatient [facility] [id number] [place] 08:30:48 08:30:48 [facility] 2018-08-02 2018-08-02 Inpatient [facility] [id number] [place] 18:20:21 18:20:21 [facility] 2018-08-02 2018-08-02 Outpatient [facility] [id number] [place] 10:46:56 10:46:56 [facility] 2018 2018 Outpatient [facility] [id number] [place] 09:43:06 09:43:06 [facility] 2018-07-19 2018-07-19 Outpatient [facility] [id number] [place] 08:58:18 08:58:18 [facility] 2018-07-15 2018-07-15 Outpatient [facility] [id number] [place] 14:56:06 14:56:06 [facility] 2018-07-08 2018-07-08 Outpatient [facility] [id number] [place] 00:00:00 00:00:00 [facility] 2018-06-24 2018-06-24 Outpatient [facility] [id number] [place] 13:29:46 13:29:46 [facility] 2018-06-24 2018-06-24 Outpatient [facility] [id number] [place] 00:00:00 00:00:00 [facility] 2018-05-22 2018-05-22 Outpatient [facility] [id number] [place] 00:00:00 00:00:00 [facility] 2018-05-21 2018-05-21 Outpatient [facility] [id number] [place] 12:01:37 12:01:37 [facility] 2018-05-21 2018-05-21 Outpatient [facility] [id number] [place] 11:04:03 11:04:03 [facility] 2018-05-06 2018-05-06 Outpatient [facility] [id number] [place] 12:58:42 12:58:42 [facility] 2018-05-06 2018-05-06 Outpatient [facility] [id number] [place] 00:00:00 00:00:00 [facility] 2018-04-22 2018-04-22 Outpatient [facility] [id number] [place] 00:00:00 00:00:00 [facility] 2018-04-22 2018-04-22 Outpatient [facility] [id number] [place] 00:00:00 00:00:00 [facility] 2018-04-04 2018-04-04 Outpatient [facility] [id number] [place] 10:25:29 10:25:29 [facility] 2018-03-29 2018-03-29 Outpatient [facility] [id number] [place] 00:00:00 00:00:00 [facility] 2018-03-29 2018-03-29 Outpatient [facility] [id number] [place] 00:00:00 00:00:00 [facility] 2018-03-27 2018-03-27 Outpatient [facility] [id number] [place] 00:00:00 00:00:00 [facility] 2018-03-18 2018-03-18 Outpatient [facility] [id number] [place] 14:00:21 14:00:21 [facility] 2018-03-14 2018-03-14 Outpatient [facility] [id number] [place] 09:21:05 09:21:05 [facility] 2017 2017 Outpatient [facility] [id number] [place] 15:16:09 15:16:09 [facility] 2017-06-18 2017-06-18 Outpatient [facility] [id number] [place] 00:00:00 00:00:00 [facility] 2017-06-13 2017-06-13 Inpatient [facility] [id number] [place] 13:16:41 13:16:41 [facility] 2017-06-13 2017-06-13 Outpatient [facility] [id number] [place] 11:15:24 11:15:24 [facility] 2017-06-13 2017-06-13 Outpatient [facility] [id number] [place] 00:00:00 00:00:00 [facility] 2017-06-13 2017-06-13 Outpatient [facility] [id number] [place] 00:00:00 00:00:00 [facility] 2017-06-13 2017-06-13 Outpatient [facility] [id number] [place] 00:00:00 00:00:00 [facility] 2017-06-12 2017-06-12 Outpatient [facility] [id number] [place] 00:00:00 00:00:00 [facility] 2017-06-12 2017-06-12 Outpatient [facility] [id number] [place] 00:00:00 00:00:00 [facility] 2017-06-05 2017-06-05 Outpatient [facility] [id number] [place] 11:49:40 11:49:40 [facility] 2017-06-05 2017-06-05 Outpatient [facility] [id number] [place] 09:57:27 09:57:27 [facility] 2017-06-04 2017-06-04 Outpatient [facility] [id number] [place] 00:00:00 00:00:00 [facility] 2017-05-28 2017-05-28 Outpatient [facility] [id number] [place] 16:15:59 16:15:59 [facility] 2017-05-28 2017-05-28 Outpatient [facility] [id number] [place] 14:56:12 14:56:12 [facility] 2017-05-28 2017-05-28 Outpatient [facility] [id number] [place] 12:06:27 12:06:27 [facility] 2017-05-21 2017-05-21 Outpatient [facility] [id number] [place] 00:00:00 00:00:00 [facility] 2017-05-21 2017-05-21 Outpatient [facility] [id number] [place] 00:00:00 00:00:00 [facility] 2017-05-14 2017-05-14 Outpatient [facility] [id number] [place] 17:34:44 17:34:44 [facility] 2017-05-14 2017-05-14 Outpatient [facility] [id number] [place] 15:19:09 15:19:09 [facility] 2017-05-14 2017-05-14 Outpatient [facility] [id number] [place] 00:00:00 00:00:00 [facility] 2017-05-14 2017-05-14 Outpatient [facility] [id number] [place] 00:00:00 00:00:00 [facility] 2017-05-14 2017-05-14 Outpatient [facility] [id number] [place] 00:00:00 00:00:00 [facility] 2017-05-07 2017-05-07 Outpatient [facility] [id number] [place] 10:33:58 10:33:58 [facility] 2017-04-30 2017-04-30 Outpatient [facility] [id number] [place] 14:01:44 14:01:44 [facility] 2017-04-30 2017-04-30 Outpatient [facility] [id number] [place] 11:57:33 11:57:33 [facility] 2017-04-30 2017-04-30 Outpatient [facility] [id number] [place] 10:46:51 10:46:51 [facility] 2017-04-30 2017-04-30 Outpatient [facility] [id number] [place] 00:00:00 00:00:00 [facility] 2017-04-16 2017-04-16 Outpatient [facility] [id number] [place] 13:41:48 13:41:48 [facility] 2017-04-05 2017-04-05 Outpatient [facility] [id number] [place] 09:49:53 09:49:53 [facility] 2017-03-19 2017-03-19 Outpatient [facility] [id number] [place] 13:30:03 13:30:03 [facility] 2017-03-19 2017-03-19 Outpatient [facility] [id number] [place] 11:48:14 11:48:14 [facility] 2017-03-19 2017-03-19 Outpatient [facility] [id number] [place] 00:00:00 00:00:00 [facility] 2017-03-05 2017-03-05 Outpatient [facility] [id number] [place] 11:57:40 11:57:40 [facility] 2017-02-19 2017-02-19 Outpatient [facility] [id number] [place] 15:20:43 15:20:43 [facility] 2017-02-02 2017-02-02 Outpatient [facility] [id number] [place] 12:36:25 12:36:25 [facility] 2017-01-22 2017-01-22 Outpatient [facility] [id number] [place] 11:44:16 11:44:16 [facility] 2017-01-22 2017-01-22 Outpatient [facility] [id number] [place] 10:25:12 10:25:12 Health 2017-01-03 2017-01-03 Outpatient [facility] [id number] [place] 11:28:23 11:28:23 Health 2016-12-23 2016-12-23 Outpatient [facility] [id number] [place] 14:59:52 14:59:52 Health Results Test Description Test Time Test Comments Results Result Comments Source HGB/HCT 2019-08-17 19:46:00 Test Item Value Reference Range Interpretation Comme nts Hemoglobin (test code = 718-7) 10.6 g/dL 12-16 L Hematocrit (test code = 4544-3) 32.7 % 37-47 L MANAS (test code = MANAS) 8 hours after delivery Lab Interpretation (test code = 40953-4) [facility] [id number] 11:38:00 Test Item Value Reference Range Interpretation Comments TPA (test code = 64352-8) Negative Negative, Equivocal Final Report (test code = Negative Negative 23654-2) Lab Interpretation (test code = Normal 81373-6) [facility][id number] 07:11:00 Test Item Value Reference Range Interpretation Comments ALT (test code = 63839904) 17 U/L 7-52 AST (test code = 70720313) 23 U/L 13-39 Lab Interpretation (test code = Normal 35082-3) [facility]Lactate Dehydrogenase]2019-08-17 07:11:00 Test Item Value Reference Range Interpretation Comments LDH (test code = 14106608) 224 U/L 140-271 Lab Interpretation (test code = Normal 31304-5) [facility]Creatinine Ratio, [id number] 07:01:00 Test Item Value Reference Range Interpretation Comments Creatinine, Urine (test code = 36 mg/dL 20-320 05636743) Total Protein, Urine (test code = 0.10 g/L <0.19 96478433) Total Protein/Creatinine Ratio, 0.3 % 0- 0.5 % Urine (test code = 84070914) Lab Interpretation (test code = Normal 29723-9) [facility] [id number] 06:03:00 Test Item Value Reference Range Interpretation Comments Specimen Expiration (test 08/20/2019 23:59 code = 27573775) ABO/RH (test code = O POS 02011994) Antibody Screen (test code = NEG 69494569) [facility] [place] [id number] 05:36:00 Test Item Value Reference Range Interpretation Comments Hep B Surface Ag (test code = Negative Negative 5196-1) Lab Interpretation (test code = Normal 09791-2) [facility]HIV-2 [id number] 05:36:00 Test Item Value Reference Range Interpretation Comments HIV Ag/Ab Combo (test code = Negative Negative 56508-8) Lab Interpretation (test code = Normal 47447-6) [id number] 04:54:00 Test Item Value Reference Range Interpretation [...] g/dL 32-36 L RDW (test code = 80946-2) 41.5 fL 36.4-46.3 Platelet (test code = 777-3) 166 K/uL 150-400 Mean Platelet Volume (test code = 10.9 fL 9.4-12.4 28077-1) Percent NRBC (test code = 38794156) 0.0 % Lab Interpretation (test code = Abnormal 71414-9) [facility]
--- NOTE | 2020-08-04 19:22 | EDPHYS ---
Physician Documentation [facility] Name: Rachel Dewey Age: 35 yrs Sex: Female : 1985 Arrival Date: 08/04/2020 Time: 14:04 Bed 15 Private MD: SERJIO Physician Gurvinder Hinojosa HPI: 08/04 19:15 This 35 yrs old Black Female presents to ER via Ambulatory with complaints of Breathing cp Difficulty, Covid+. 19:15 The patient or guardian reports cough, that is intermittent, shortness of breath, cp nausea with intermittent vomiting. 19:15 Onset: The symptoms/episode began/occurred last month, 07/15. Patient reports she was cp diagnosed with COVID-19. 19:15 Patient reports she is approximately 5 weeks . Denies abdominal pain, denies cp vaginal bleeding. Historical: - Allergies: 14:19 No Known Allergies; ll1 - PMHx: 14:19 None; ll1 - PSHx: 14:19 None; ll1 - Immunization history:: Flu vaccine is not up to date. - Social history:: Smoking status: Patient denies any tobacco usage or history of. ROS: 19:18 Constitutional: Negative for fever, poor PO intake. cp 19:18 Cardiovascular: Negative for chest pain. 19:18 Respiratory: Positive for cough, shortness of breath, on exertion. Negative for wheezing. 19:18 Abdomen/GI: Negative for abdominal pain. 19:18 : Negative for urinary symptoms, vaginal bleeding, vaginal discharge. 19:18 Neuro: Negative for altered mental status, headache, weakness. 19:18 All other systems are negative. Exam: 19:19 Head/Face: Normocephalic, atraumatic. cp 19:19 Constitutional: The patient appears in no acute distress, alert, awake, comfortable, non-diaphoretic, non-toxic, well developed, well nourished. 19:19 Eyes: Periorbital structures: appear normal, Conjunctiva: normal, no exudate, no injection, Lids and lashes: appear normal, bilaterally. 19:19 ENT: External ear(s): are unremarkable, Nose: is normal, Posterior pharynx: Airway: no evidence of obstruction, patent. 19:19 Neck: ROM/movement: is normal, is supple, without pain, no range of motions limitations. 19:19 Chest/axilla: Inspection: normal, Palpation: is normal, no crepitus, no tenderness. 19:19 Cardiovascular: Rate: normal, Rhythm: regular. 19:19 Respiratory: the patient does not display signs of respiratory distress, Respirations: normal, no use of accessory muscles, no retractions, labored breathing, is not present, Breath sounds: bronchial sounds, that are mild, are heard diffusely, decreased breath sounds, are not appreciated, wheezing: is not appreciated. 19:19 Abdomen/GI: Inspection: abdomen appears normal, Palpation: abdomen is soft and non-tender, in all quadrants. Vital Signs: 14:16 BP 156 / 100; Pulse 78; Resp 18; Temp 98.6; Pulse Ox 100% ; Weight 74.39 kg; Height 5 ll1 ft. 5 in. (165.10 cm); Pain 0/10; 19:50 BP 140 / 85; Pulse 70; Resp 16; Pulse Ox 99% ; rr5 14:16 Body Mass Index 27.29 (74.39 kg, 165.10 cm) ll1 MDM: 19:03 Patient medically screened. cp 19:22 Data reviewed: vital signs, nurses notes. cp 19:22 Counseling: I had a detailed discussion with the patient and/or guardian regarding: the cp historical points, exam findings, and any diagnostic results supporting the discharge/admit diagnosis, the need for outpatient follow up, an OB/Gyne specialist, to return to the emergency department if symptoms worsen or persist or if there are any questions or concerns that arise at home. ED course: VSS. No signs of respiratory distress. Patient's oxygen sats 99% on RA. Will discharge to home for continued monitoring. 08/04 19:18 Order name: Vital Signs: recheck to include blood pressure; Complete Time: 00:05 cp Administered Medications: No medications were administered Disposition: 19:30 Chart complete. cp 08/05 05:37 Co-signature as Attending Physician, Gurvinder Hinojosa MD I agree with the assessment and brielle plan of care. Disposition: 08/04/20 19:22 Discharged to Home. Impression: Coronavirus infection, unspecified, Acute bronchitis, unspecified. - Condition is Stable. - Discharge Instructions: Acute Bronchitis, Adult, COVID-19. - Prescriptions for Albuterol Sulfate 90 mcg/actuation - inhale 1-2 puff by INHALATION route every 4-6 hours; 1 Inhaler. Augmentin 875- 125 mg Oral Tablet - take 1 tablet by ORAL route every 12 hours for 10 days; 20 tablet. promethazine 25 mg Oral Tablet - take 1 tablet by ORAL route every 6 hours As needed; 20 tablet. - Medication Reconciliation Form, Thank You Letter, Antibiotic Education, Prescription Opioid Use form. - Follow up: Private Physician; When: 2 - 3 days; Reason: Recheck today's complaints. - Problem is an ongoing problem. - Symptoms are unchanged. Signatures: Gurvinder Hinojosa MD MD cha Page, Corey, PA PA cp Tori Solorio, RN RN vg1 Natalee Elder RN RN ll1 Corrections: (The following items were deleted from the chart) 08/04 19:52 19:22 08/04/2020 19:22 Discharged to Home. Impression: Coronavirus infection, vg1 unspecified; Acute bronchitis, unspecified. Condition is Stable. Forms are Medication Reconciliation Form, Thank You Letter, Antibiotic Education, Prescription Opioid Use. Follow up: Private Physician; When: 2 - 3 days; Reason: Recheck today's complaints. Problem is an ongoing problem. Symptoms are unchanged. cp
--- NOTE | 2020-08-04 19:22 | ER ---
Nurse's Notes [facility] Name: Rachel Dewey Age: 35 yrs Sex: Female : 1985 Arrival Date: 08/04/2020 Time: 14:04 Bed 15 Private MD: Diagnosis: Coronavirus infection, unspecified;Acute bronchitis, unspecified Presentation: 08/04 14:16 Chief complaint: Patient states: Continued fever, cough, fatigue since 07/15. Finished ll1 her azithromycin. SOB for 3 weeks. States maybe we can prescribe her something else. 5 weeks . Coronavirus screen: Client denies travel out of the [place] in the last 14 days. congestion, cough unrelated to allergies, fatigue, Client presents with at least one sign or symptom that may indicate coronavirus-19. Standard/surgical mask placed on the client. Ebola Screen: Patient denies travel to an Ebola-affected area in the 21 days before illness onset. Initial Sepsis Screen: Does the patient meet any 2 criteria? No. Patient's initial sepsis screen is negative. Does the patient have a suspected source of infection? Yes: Productive cough/pneumonia. Risk Assessment: Do you want to hurt yourself or someone else? Patient reports no desire to harm self or others. Onset of symptoms was July 15, 2020. 14:16 Method Of Arrival: Ambulatory ll1 14:16 Acuity: SADIA 4 ll1 Historical: - Allergies: 14:19 No Known Allergies; ll1 - PMHx: 14:19 None; ll1 - PSHx: 14:19 None; ll1 - Immunization history:: Flu vaccine is not up to date. - Social history:: Smoking status: Patient denies any tobacco usage or history of. Screenin:15 Abuse screen: Denies threats or abuse. Denies injuries from another. Nutritional rr5 screening: No deficits noted. Tuberculosis screening: No symptoms or risk factors identified. Fall Risk None identified. Total Ochoa Fall Scale indicates No Risk (0-24 pts). Assessment: 19:15 General: Appears in no apparent distress. comfortable, Behavior is calm, cooperative, rr5 appropriate for age. 19:15 Pain: Denies pain. Neuro: Level of Consciousness is awake, alert, obeys commands, rr5 Oriented to person, place, time. Cardiovascular: Capillary refill < 3 seconds Patient's skin is warm and dry. Respiratory: Reports shortness of breath Airway is patent Respiratory effort is even, unlabored, Respiratory pattern is regular, symmetrical. GI: No signs and/or symptoms were reported involving the gastrointestinal system. : No signs and/or symptoms were reported regarding the genitourinary system. EENT: No signs and/or symptoms were reported regarding the EENT system. Derm: Skin is intact, is healthy with good turgor, Skin temperature is warm. Musculoskeletal: No signs and/or symptoms reported regarding the musculoskeletal system. 19:50 Reassessment: Patient appears in no apparent distress at this time. Patient is alert, rr5 oriented x 3, equal unlabored respirations, skin warm/dry/pink. discharge instruction given and explained without complaint made. Vital Signs: 14:16 BP 156 / 100; Pulse 78; Resp 18; Temp 98.6; Pulse Ox 100% ; Weight 74.39 kg; Height 5 ll1 ft. 5 in. (165.10 cm); Pain 0/10; 19:50 BP 140 / 85; Pulse 70; Resp 16; Pulse Ox 99% ; rr5 14:16 Body Mass Index 27.29 (74.39 kg, 165.10 cm) ll1 ED Course: 14:04 Patient arrived in ED. ds1 14:18 Triage completed. ll1 14:19 Arm band placed on. ll1 19:02 Gurvinder Teixeira PA is PHCP. cp 19:02 Gurvinder Hinojosa MD is Attending Physician. cp 19:15 Patient has correct armband on for positive identification. Bed in low position. rr5 19:42 Buddy Padilla, RN is Primary Nurse. rr5 19:50 No provider procedures requiring assistance completed. Patient did not have IV access rr5 during this emergency room visit. Administered Medications: No medications were administered Outcome: 19:22 Discharge ordered by MD. cp 19:50 Discharged to home ambulatory. rr5 19:50 Condition: stable 19:50 Discharge instructions given to patient, Instructed on discharge instructions, follow up and referral plans. medication usage, Demonstrated understanding of instructions, follow-up care, medications, Prescriptions given X 2. 19:52 Patient left the ED. vg1 Signatures: Ammy Gil ds1 Gurvinder Teixeira PA PA cp Buddy Padilla, TERESITA RN rr5 Tori Solorio RN RN vg1 Natalee Elder RN RN ll1 Corrections: (The following items were deleted from the chart) 14:19 14:16 Chief complaint: Patient states: Continued fever, cough, fatigue since 07/15. ll1 Finished her azithromycin. SOB for 3 weeks. States maybe we can prescribe her something else. ll1
== END 2020-08-04 19:52 | disposition home or self-care (01) ==
CPT/HCPCS: 99282

== ENCOUNTER 2020-09-05 15:00 | Emergency (ER) | payer BC ==
--- OUTSIDE RECORDS SUMMARY | 2020-09-05 15:04 | XMS REPORT | Clinical Summary ---
:1985 Author Organization [facility] Address [address] [place] [address] Care Team Providers Name Role Phone Unavailable Primary Care Provider Unavailable Allergies No Known Active Allergies Medications Medication Sig Dispensed Refills Start Date End Date Status 25/iron Take by mouth. 0 Active fum/folic/dha (-1 OR) vitamin Take 1 tablet by 90 tablet 1 08/19/2019 Active tabletIndications: mouth daily (spontaneous Pharmacist may vaginal delivery) select any Vitamin product covered on the patient's insurance for new rxs and refills. ibuprofen (MOTRIN) Take 1 tablet by 20 tablet 1 08/19/2019 Active 800 mg mouth every 8 hours tabletIndications: as needed for Pain. (spontaneous vaginal delivery) Active Problems Problem Noted Date Normal labor [...] . Estimated Date of Delivery: 08/27/19 by L ADDISON C/W 23 wk U/S Labs : 03/07/2019 [...] 03/11/2019 Overview: appt 05/01/19 genetic counseling cancelled Immunizations Name Administration Dates Next Due Influenza [...] Not on file Last Filed Vital Signs Not on file Plan of Treatment Health Maintenance Due Date Last Done Comments IMM Influenza Seasonal Apr to 04/29/2020 06/17/2019, 2017 (>/= 19 yrs) Pap Cervical Cancer Scrn 07/25/2022 07/25/2017 (Previously completed - External) HPV Cervical Cancer Scrn 2022 2017, 01/22/2017 Results Not on fileafter 09/05/2019 Insurance Payer Benefit Plan / Subscriber ID Effective Dates Phone Addre ss Type Group [facility] SELF-PAY [id number] 2019- [phone] [id number] SELF-PAY SCRE[address]ED [address] [place] [address] Guarantor Name Account Type Relation to Date of Phone Billing Address Patient LORRIE DEWEY Personal/Famil Head of 1985 [phone] [id number] (Self) (Home) [facility] [address] [place], [place] (Work) [address] Lorrie Dewey Marlon Self 1985 [address] (Home) [place] [phone] [id number] (Work) Advance Directives Code Status Date Activated Date Inactivated Comments Full Code 08/17/2019 4:54 AM 08/19/2019 4:25 PM Full Code 08/17/2019 3:30 AM 08/17/2019 4:54 AM Full Code 08/14/2018 5:05 AM 08/15/2018 8:05 PM Full Code 08/13/2018 3:59 PM 08/14/2018 5:05 AM Full Code 08/02/2018 9:21 PM 08/03/2018 5:25 PM
--- OUTSIDE RECORDS SUMMARY | 2020-09-05 15:04 | XMS REPORT | Continuity of Care Document ---
:1985 Author Organization [facility] t Address [address] [place] [address] Care Team Providers Name Role Phone Unavailable Unavailable Unavailable Payers Payer Name Policy Type Policy Number Effective Date Expiration Date S ource Problems Condition Condition Condition Status Onset Resolution Last Treating Co mments Source Name Details Category Date Date Treatment Clinician Date Normal Normal Disease Active Remy labor and labor and 08-17 delivery delivery 00:00: 00 Current Current Disease Active 2018-07 Overview: Sandi is 2-07 Pt with [facility] with with 00:00: history history of history of 00 of pre-term pre-term labor in labor in labor and third third delivery trimester trimester at 36 weeks gestation 2018 and short interval between . 06/03/2019 Seen and evaluated by [facility] OB . Pt was outside of window for 17 OHP 2/2 missed/ca ncelled several appointme nts. Oligohydra Oligohydra Disease Active 2018-07 Overview : Remy mnios in mnios in 2-04 07/02/2019 [facility] third third 00:00: Sono done trimester trimester 00 9 with MARIO 7.9 cm ( borderlin e ) at 29 weeks gestation . . 07/02/2019 ANT ordered for follow up MARIO 9 . Disease Active 2018- Fletcher ris with 32 with 32 2-04 Health completed completed 00:00: weeks weeks 00 gestation gestation Obesity, Obesity, Disease Active 2018-07 Overview: Guerrero rris Class I, Class I, 1-19 BMI at [facility] BMI BMI 00:00: entry of 30-34.9 30-34.9 [...] Remy n of other n of other 03-12 [facility] normal normal 00:00: g of this 00 [...] at 29w6d Anemia Anemia Disease Active Overview: Remy during during -05/27/19: Health 00:00: hemoglobi in second in second 00 n 10.5 on trimester trimester 03/07/2019. Rx for PO iron daily printed today. AMA AMA Disease Active Overview: Remy (advanced (advanced 8-13 appt Heal th maternal maternal 00:00: 05/01/19 age) age) 00 genetic multigravi multigravi counselin da 35+, da 35+, g second second cancelled trimester trimester Allergies, Adverse Reactions, Alerts This patient has no known allergies or adverse reactions. Social History Social Habit Start Date Stop Date Quantity Comments Source History [facility] h Alcohol Std Drinks History [facility] Alcohol Binge Sex Assigned At [facility] alth Tobacco use and 2019-08-17 2019-08-17 Never used [facility] exposure 00:00:00 00:00:00 Alcohol intake 2019-08-17 2019-08-17 [facility]00 non-drinker (finding) History [facility] 2019-02-28 2019-02-28 1 [facility] Alcohol Frequency 00:00:00 00:00:00 History [facility] Food 2018-04-04 2018-04-04 1 [facility] Worry 00:00:00 00:00:00 History [facility] Food 2018-04-04 2018-04-04 1 [facility] Scarcity 00:00:00 00:00:00 Smoking Status Start Date Stop Date Source Never smoker [facility] Medications Ordered Filled Start Stop Current Ordering Indication Dosage Frequency Signature Comments Components Source Medication Medication Date Date Medication? Clinician (SIG) Name Name Yes Take by [facility] 25/iron 1-21 mouth. Health fum/folic/d 14:25: guerrero 02 (-1 OR) 2019- Yes 1{tbl} QD Take 1 [employer] s vitamin 1-21 (spontaneou tablet by Health tablet 00:00: s vaginal mouth 00 delivery) daily Pharmacist may select any Vitamin product covered on the patient's insurance for new rxs and refills. ibuprofen 2019- Yes 800mg Take 1 Harri s (MOTRIN) 1-21 (spontaneou tablet by [employer] 800 mg 00:00: s vaginal mouth tablet 00 delivery) every 8 hours as needed for Pain. Immunizations Ordered Immunization Filled Immunization Date Status Commen ts Source Name Name Influenza, 2019-06-17 Completed [facility] Vaccine<FLUCELVAX>(M 00:00:00 ulti-Dose) Tdap (Tetanus 2018-07-15 Completed [facility] Toxoid, Reduced 00:00:00 Diphtheria Toxoid And Acellular Pertussis, Absorbed) Influenza, 2018-05-21 Completed [facility] Vaccine<FLUCELVAX>(M 00:00:00 ulti-Dose) Tdap (Tetanus 2017-04-05 Completed [facility] th Toxoid, Reduced 00:00:00 Diphtheria Toxoid And Acellular Pertussis, Absorbed) Procedures This patient has no known procedures. Plan of Care Planned Activity Planned Date Details Comments Source Future Scheduled Test 2022 00:00:00 Screening for [facility] malignant neoplasm of cervix (procedure) [code = 604918727] Future Scheduled Test 2022-07-25 00:00:00 Screening for [facility] malignant neoplasm of cervix (procedure) [code = 610698438] Future Scheduled Test 2020-04-29 00:00:00 IMM Influenza [facility] Seasonal Apr to September (>/= 19 yrs) [code = IMM Influenza Seasonal Apr to September (>/= 19 yrs)] Encounters Start End Encounter Admission Attending Care Care Encounter Source Date/Time Date/Time Type Type Clinicians Facility Department ID 2018-08-13 Inpatient [facility] [id number] H arris 00:00:00 [facility] 2018-08-13 Inpatient [facility] [id number] H arris 00:00:00 [facility] 2018-08-03 Inpatient [facility] [id number] H arris 00:00:00 Health 2017-06-15 Inpatient [facility] [id number] H arris 20:08:24 Health 2017-06-14 Inpatient [facility] [id number] H arris 22:47:52 Health 2019-07-16 2019-07-16 Outpatient [facility] [id number] [facility] 00:00:00 00:00:00 Health 2019-07-09 2019-07-09 Outpatient [facility] [id number] [facility] 00:00:00 00:00:00 Health 2019-07-09 2019-07-09 Outpatient [facility] [id number] [facility] 00:00:00 00:00:00 Health 2019-07-02 2019-07-02 Outpatient [facility] [id number] [facility] 14:55:58 14:55:58 Health 2019-06-23 2019-06-23 Outpatient [facility] [id number] [facility] 00:00:00 00:00:00 Health 2019-06-17 2019-06-17 Outpatient [facility] [id number] [facility] 16:12:47 16:12:47 Health 2019-06-17 2019-06-17 Outpatient [facility] [id number] [place] 14:58:36 14:58:36 [facility] 2019-06-17 2019-06-17 Outpatient [facility] [id number] [place] 00:00:00 00:00:00 [facility] 2019-06-17 2019-06-17 Outpatient [facility] [id number] [place] 00:00:00 00:00:00 [facility] 2019-06-02 2019-06-02 Outpatient [facility] [id number] [place] 00:00:00 00:00:00 [facility] 2019-05-27 2019-05-27 Outpatient [facility] [id number] [place] 15:50:59 15:50:59 [facility] 2019-05-06 2019-05-06 Outpatient [facility] [id number] [place] 00:00:00 00:00:00 [facility] 2019-05-01 2019-05-01 Outpatient [facility] [id number] [place] 13:57:04 13:57:04 [facility] 2019-05-01 2019-05-01 Outpatient [facility] [id number] [place] 00:00:00 00:00:00 [facility] 2019-05-01 2019-05-01 Outpatient [facility] [id number] [place] 00:00:00 00:00:00 [facility] 2019-05-01 2019-05-01 Outpatient [facility] [id number] [place] 00:00:00 00:00:00 [facility] 2019-04-30 2019-04-30 Outpatient [facility] [id number] [place] 00:00:00 00:00:00 [facility] 2019-04-23 2019-04-23 Outpatient [facility] [id number] [place] 11:57:19 11:57:19 [facility] 2019-04-16 2019-04-16 Outpatient [facility] [id number] [place] 00:00:00 00:00:00 [facility] 2019-03-13 2019-03-13 Outpatient [facility] [id number] [place] 00:00:00 00:00:00 [facility] 2019-03-12 2019-03-12 Outpatient [facility] [id number] [place] 00:00:00 00:00:00 [facility] 2019-03-07 2019-03-07 Outpatient [facility] [id number] [place] 13:42:26 13:42:26 [facility] 2019-02-28 2019-02-28 Outpatient [facility] [id number] [place] 12:44:17 12:44:17 [facility] 2019-02-28 2019-02-28 Outpatient [facility] [id number] [place] 00:00:00 00:00:00 [facility] 2019-02-12 2019-02-12 Emergency [facility] [id number] [place] 10:34:17 10:34:17 [facility] 2018-11-06 2018-11-06 Outpatient [facility] [id number] [place] 00:00:00 00:00:00 [facility] 2018-09-30 2018-09-30 Outpatient [facility] [id number] [place] 00:00:00 00:00:00 [facility] 2018-09-30 2018-09-30 Outpatient [facility] [id number] [place] 00:00:00 00:00:00 [facility] 2018-09-25 2018-09-25 Outpatient [facility] [id number] [place] 00:00:00 00:00:00 [facility] 2018-09-24 2018-09-24 Outpatient [facility] [id number] [place] 00:00:00 00:00:00 [facility] 2018-08-13 2018-08-13 Inpatient [facility] [id number] [facility] 14:09:33 14:09:33 [facility] 2018-08-03 2018-08-03 Outpatient [facility] [id number] [facility] 08:30:48 08:30:48 [facility] 2018-08-02 2018-08-02 Inpatient [facility] [id number] [facility] 18:20:21 18:20:21 [facility] 2018-08-02 2018-08-02 Outpatient [facility] [id number] [facility] 10:46:56 10:46:56 [facility] 2018 2018 Outpatient [facility] [id number] [facility] 09:43:06 09:43:06 [facility] 2018-07-19 2018-07-19 Outpatient [facility] [id number] [facility] 08:58:18 08:58:18 [facility] 2018-07-15 2018-07-15 Outpatient [facility] [id number] [facility] 14:56:06 14:56:06 [facility] 2018-07-08 2018-07-08 Outpatient [facility] [id number] [place] 00:00:00 00:00:00 [facility] 2018-06-24 2018-06-24 Outpatient [facility] [id number] [facility] 13:29:46 13:29:46 [facility] 2018-06-24 2018-06-24 Outpatient [facility] [id number] [place] 00:00:00 00:00:00 [facility] 2018-05-22 2018-05-22 Outpatient [facility] [id number] [place] 00:00:00 00:00:00 [facility] 2018-05-21 2018-05-21 Outpatient [facility] [id number] [place] 12:01:37 12:01:37 [facility] 2018-05-21 2018-05-21 Outpatient [facility] [id number] [place] 11:04:03 11:04:03 [facility] 2018-05-06 2018-05-06 Outpatient [facility] [id number] [place] 12:58:42 12:58:42 [facility] 2018-05-06 2018-05-06 Outpatient [facility] [id number] [place] 00:00:00 00:00:00 [facility] 2018-04-22 2018-04-22 Outpatient [facility] [id number] [place] 00:00:00 00:00:00 [facility] 2018-04-22 2018-04-22 Outpatient [facility] [id number] [place] 00:00:00 00:00:00 [facility] 2018-04-04 2018-04-04 Outpatient [facility] [id number] [place] 10:25:29 10:25:29 [facility] 2018-03-29 2018-03-29 Outpatient [facility] [id number] [place] 00:00:00 00:00:00 [facility] 2018-03-29 2018-03-29 Outpatient [facility] [id number] [place] 00:00:00 00:00:00 [facility] 2018-03-27 2018-03-27 Outpatient [facility] [id number] [place] 00:00:00 00:00:00 [facility] 2018-03-18 2018-03-18 Outpatient [facility] [id number] [place] 14:00:21 14:00:21 [facility] 2018-03-14 2018-03-14 Outpatient [facility] [id number] [facility] 09:21:05 09:21:05 [facility] 2017 2017 Outpatient [facility] [id number] [facility] 15:16:09 15:16:09 [facility] 2017-06-18 2017-06-18 Outpatient [facility] [id number] [place] 00:00:00 00:00:00 [facility] 2017-06-13 2017-06-13 Inpatient [facility] [id number] [place] 13:16:41 13:16:41 [facility] 2017-06-13 2017-06-13 Outpatient [facility] [id number] [place] 11:15:24 11:15:24 [facility] 2017-06-13 2017-06-13 Outpatient [facility] [id number] [place] 00:00:00 00:00:00 [facility] 2017-06-13 2017-06-13 Outpatient [facility] [id number] [place] 00:00:00 00:00:00 [facility] 2017-06-13 2017-06-13 Outpatient [facility] [id number] [place] 00:00:00 00:00:00 [facility] 2017-06-12 2017-06-12 Outpatient [facility] [id number] [place] 00:00:00 00:00:00 [facility] 2017-06-12 2017-06-12 Outpatient [facility] [id number] [place] 00:00:00 00:00:00 [facility] 2017-06-05 2017-06-05 Outpatient [facility] [id number] [place] 11:49:40 11:49:40 [facility] 2017-06-05 2017-06-05 Outpatient [facility] [id number] [place] 09:57:27 09:57:27 [facility] 2017-06-04 2017-06-04 Outpatient [facility] [id number] [place] 00:00:00 00:00:00 [facility] 2017-05-28 2017-05-28 Outpatient [facility] [id number] [place] 16:15:59 16:15:59 [facility] 2017-05-28 2017-05-28 Outpatient [facility] [id number] [place] 14:56:12 14:56:12 [facility] 2017-05-28 2017-05-28 Outpatient [facility] [id number] [place] 12:06:27 12:06:27 [facility] 2017-05-21 2017-05-21 Outpatient [facility] [id number] [place] 00:00:00 00:00:00 [facility] 2017-05-21 2017-05-21 Outpatient [facility] [id number] [place] 00:00:00 00:00:00 [facility] 2017-05-14 2017-05-14 Outpatient [facility] [id number] [place] 17:34:44 17:34:44 [facility] 2017-05-14 2017-05-14 Outpatient [facility] [id number] [place] 15:19:09 15:19:09 [facility] 2017-05-14 2017-05-14 Outpatient [facility] [id number] [place] 00:00:00 00:00:00 [facility] 2017-05-14 2017-05-14 Outpatient [facility] [id number] [place] 00:00:00 00:00:00 [facility] 2017-05-14 2017-05-14 Outpatient [facility] [id number] [place] 00:00:00 00:00:00 [facility] 2017-05-07 2017-05-07 Outpatient [facility] [id number] [facility] 10:33:58 10:33:58 [facility] 2017-04-30 2017-04-30 Outpatient [facility] [id number] [facility] 14:01:44 14:01:44 [facility] 2017-04-30 2017-04-30 Outpatient [facility] [id number] [facility] 11:57:33 11:57:33 [facility] 2017-04-30 2017-04-30 Outpatient [facility] [id number] [facility] 10:46:51 10:46:51 [facility] 2017-04-30 2017-04-30 Outpatient [facility] [id number] [facility] 00:00:00 00:00:00 [facility] 2017-04-16 2017-04-16 Outpatient [facility] [id number] [facility] 13:41:48 13:41:48 [facility] 2017-04-05 2017-04-05 Outpatient [facility] [id number] [facility] 09:49:53 09:49:53 [facility] 2017-03-19 2017-03-19 Outpatient [facility] [id number] [facility] 13:30:03 13:30:03 [facility] 2017-03-19 2017-03-19 Outpatient [facility] [id number] [facility] 11:48:14 11:48:14 [facility] 2017-03-19 2017-03-19 Outpatient [facility] [id number] [facility] 00:00:00 00:00:00 [facility] 2017-03-05 2017-03-05 Outpatient [facility] [id number] [facility] 11:57:40 11:57:40 [facility] 2017-02-19 2017-02-19 Outpatient [facility] [id number] [facility] 15:20:43 15:20:43 [facility] 2017-02-02 2017-02-02 Outpatient [facility] [id number] [facility] 12:36:25 12:36:25 [facility] 2017-01-22 2017-01-22 Outpatient [facility] [id number] [facility] 11:44:16 11:44:16 [facility] 2017-01-22 2017-01-22 Outpatient [facility] [id number] [facility] 10:25:12 10:25:12 [facility] 2017-01-03 2017-01-03 Outpatient [facility] [id number] [facility] 11:28:23 11:28:23 Health 2016-12-23 2016-12-23 Outpatient [facility] [id number] [place] 14:59:52 14:59:52 Health Results This patient has no known results.
--- NOTE | 2020-09-05 15:20 | ER ---
Nurse's Notes [facility] Name: Rachel Dewey Age: 35 yrs Sex: Female : 1985 Arrival Date: 09/05/2020 Time: 15:03 Bed Waiting Private MD: Diagnosis: Presentation: 09/05 15:18 Chief complaint: pt not in lobby when called, registration staff reports that pt wanted iw to speak with the doctor about a referral to [facility] for her . ED Course: 15:03 Patient arrived in ED. ag5 Administered Medications: No medications were administered Outcome: 15:19 Patient left the ED. iw Signatures: Pauline Soto RN RN Amador Markham ag5
== END 2020-09-05 15:19 | disposition left against medical advice (07) ==
LOC: ER 15:00
DX: Z53.21 Procedure and treatment not carried out due to patient leaving prior to being seen by health care provider (principal)
CPT/HCPCS: 99281

== ENCOUNTER 2021-02-28 03:33 | Inpatient (IN) | payer BC, SELFPAY ==
--- OUTSIDE RECORDS SUMMARY | 2021-02-28 03:42 | XMS REPORT | Continuity of Care Document ---
:1985 Author Organization [facility] t Address [address] [place] [address] Care Team Providers Name Role Phone Shari Baker RN, Juliet Attending Clinician Unavailable Angie Gore Attending Clinician Ivon Ocampo MD Attending Clinician Payers Payer Name Policy Type Policy Number Effective Date Expiration Date Yash anton [facility] [id number] 2019 2029 [facility] SELF-PAYSELF- 00:00:00 23:59:59 PAY [id number] [place] [address] Problems Condition Condition Condition Status Onset Resolution Last Treating Co mments Source Name Details Category Date Date Treatment Clinician Date Normal Normal Disease Active Remy labor and labor and 08-17 th delivery delivery 00:00: 00 Current Current Disease Active 2018-07 Overview: Sandi is 2 [facility] ealt with with 00:00: g of this history of history of 00 note pre-term pre-term might be labor in labor in different third third from the trimester trimester original. Pt with history of labor and delivery at 36 weeks gestation 2018 and short interval between . 06/03/2019 Seen and evaluated by [facility] OB . Pt was outside of window for 17 OHP 2/2 missed/ca ncelled several appointme nts. Oligohydra Oligohydra Disease Active 2018-07 Overview : Remy mnios in mnios in 2-[address] [facility] third 00:00: g of this trimester trimester 00 note might be different from the original. 07/02/2019 Sono done 9 with MARIO 7.9 cm ( borderlin e ) at 29 weeks gestation . . 07/02/2019 ANT ordered for follow up MARIO 9 . Disease Active 2018-07 Fletcher ris with 32 with 32 2-04 Health completed completed 00:00: weeks weeks 00 gestation gestation Obesity, Obesity, Disease Active 2018-07 Overview: Guerrero rris Class I, Class I, 1-19 [facility] BMI BMI 00:00: g of this 30-34.9 30-34.9 00 note might be different from the original. BMI at entry of care 29.4 Encounter Encounter Disease Active 2018-07 Overview: Remy for other for other 0-29 [facility] ealt general general 00:00: g of this counseling counseling 00 note and advice and advice might be on on different contracept contracept from the ion ion original. 05/27/19: history of short interval with most recent delivery 07/2018. Counseled on contracep tion today IUD vs nexplanon vs depo provera vs POP/OCPs. Patient declines at this time and wants to speak with her . Supervisio Supervisio Disease Active Overview : Remy n of other n of other 8-14 [facility] normal normal 00:00: g of this 00 note is different from the original. OB History Para [...] Anemia Disease Active Overview: Remy during during 8-14 [facility] 00:00: g of this in second in second 00 note trimester trimester might be different from the original. 05/27/19: hemoglobi n 10.5 on 03/07/2019. Rx for PO iron daily printed today. AMA AMA Disease Active Overview: Remy (advanced ([facility] maternal 00:00: g of this age) age) 00 note multigravi multigravi might be da 35+, da 35+, different second second from the trimester trimester original. appt 05/01/19 genetic counselin g cancelled Allergies, Adverse Reactions, Alerts This patient has no known allergies or adverse reactions. Social History Social Habit Start Date Stop Date Quantity Comments Source History [facility] Remy Saxena Alcohol Binge Sex Assigned At [facility] alth History [facility] Alcohol Std Drinks Tobacco use and 2019-08-17 2019-08-17 Never used [facility] alth exposure 00:00:00 00:00:00 Alcohol intake 2019-08-17 2019-08-17 [facility]00 non-drinker (finding) History [facility] 2019-02-28 2019-02-28 [facility] 00:00:00 00:00:00 History [facility] Food 2018-04-04 2018-04-04 1 [facility] Worry 00:00:00 00:00:00 History [facility] Food 2018-04-04 2018-04-04 1 [employer] Scarcity 00:00:00 00:00:00 Smoking Status Start Date Stop Date Source Never smoker [facility] Medications Ordered Filled Start Stop Current Ordering Indication Dosage Frequency Signature Comments Components Source Medication Medication Date Date Medication? Clinician (SIG) Name Name Yes Take by [employer] 25/iron 1-21 mouth. Health fum/folic/d 14:25: guerrero 02 (-1 OR) Yes 1{tbl} QD Take 1 [employer] vitamin 1-21 (spontaneou tablet by [employer] tablet 00:00: s vaginal mouth 00 delivery) daily Pharmacist may select any Vitamin product covered on the patient's insurance for new rxs and refills. ibuprofen Yes 800mg Take 1 Harri s (MOTRIN) 1-21 (spontaneou tablet by [employer] 800 mg 00:00: s vaginal mouth tablet 00 delivery) every 8 hours as needed for Pain. Immunizations Ordered Immunization Filled Immunization Date Status Commen ts Source Name Name Influenza, 2019-06-17 Completed [facility] Vaccine<FLUCELVAX>(M 00:00:00 ulti-Dose) Tdap (Tetanus 2018-07-15 Completed [facility] Toxoid, Reduced 00:00:00 Diphtheria Toxoid And Acellular Pertussis, Absorbed) Influenza, 2018-05-21 Completed [facility] [employer] Vaccine<FLUCELVAX>(M 00:00:00 ulti-Dose) Tdap (Tetanus 2017-04-05 Completed [facility] Toxoid, Reduced 00:00:00 Diphtheria Toxoid And Acellular Pertussis, Absorbed) Procedures This patient has no known procedures. Plan of Care Planned Activity Planned Date Details Comments Source Future Scheduled Test 2022 00:00:00 Screening for [facility] malignant neoplasm of cervix (procedure) [code = 206577607] Future Scheduled Test 2022-07-25 00:00:00 Screening for [facility] malignant neoplasm of cervix (procedure) [code = 294937511] Future Scheduled Test 2021-04-29 00:00:00 IMM Influenza [facility] Seasonal Apr to September (>/= 19 yrs) [code = IMM Influenza Seasonal Apr to September (>/= 19 yrs)] Future Scheduled Test 1995 00:00:00 COVID-19 Vaccine (1) [facility] [code = COVID-19 Vaccine (1)] Encounters Start End Encounter Admission Attending Care Care Encounter Source Date/Time Date/Time Type Type Clinicians Facility Department ID 2018-08-13 Inpatient [facility] [id number] H arris 00:00:00 Health 2018-08-13 Inpatient [facility] [id number] H arris 00:00:00 Health 2018-08-03 Inpatient [facility] [id number] H arris 00:00:00 Health 2017-06-15 Inpatient [facility] [id number] H arris 20:08:24 Health 2017-06-14 Inpatient [facility] [id number] H arris 22:47:52 Health 2021-02-28 2021-02-28 Nurse Shari THOMSON [id number] 00:00:00 00:00:00 Triage SHA Baker [id number] [facility] [id number] [facility] 2021-02-14 2021-02-14 Routine LIMA Hackett [id number] 15:44:54 17:05:16 Angie Gale ART FRAMING MANAGER [id number] Visit [facility] [id number] MATERNAL [id number] & CHILD 107 [facility] 2019-07-16 2019-07-16 Outpatient [facility] [id number] [place] 00:00:00 00:00:00 [facility] 2019-07-09 2019-07-09 Outpatient [facility] [id number] [place] 00:00:00 00:00:00 [facility] 2019-07-09 2019-07-09 Outpatient [facility] [id number] [place] 00:00:00 00:00:00 Health 2019-07-02 2019-07-02 Outpatient [facility] [id number] [place] 14:55:58 14:55:58 Health 2019-06-23 2019-06-23 Outpatient [facility] [id number] [place] 00:00:00 00:00:00 Health 2019-06-17 2019-06-17 Outpatient [facility] [id number] [place] 16:12:47 16:12:47 Health 2019-06-17 2019-06-17 Outpatient [facility] [id number] [place] 14:58:36 14:58:36 Health 2019-06-17 2019-06-17 Outpatient [facility] [id number] [place] 00:00:00 00:00:00 [facility] 2019-06-17 2019-06-17 Outpatient [facility] [id number] [place] 00:00:00 00:00:00 [facility] 2019-06-02 2019-06-02 Outpatient [facility] [id number] [place] 00:00:00 00:00:00 [facility] 2019-05-27 2019-05-27 Outpatient [facility] [id number] [place] 15:50:59 15:50:59 Health 2019-05-06 2019-05-06 Outpatient [facility] [id number] [place] 00:00:00 00:00:00 [facility] 2019-05-01 2019-05-01 Outpatient [facility] [id number] [place] 13:57:04 13:57:04 [facility] 2019-05-01 2019-05-01 Outpatient [facility] [id number] [place] 00:00:00 00:00:00 [facility] 2019-05-01 2019-05-01 Outpatient [facility] [id number] [place] 00:00:00 00:00:00 [facility] 2019-05-01 2019-05-01 Outpatient [facility] [id number] [place] 00:00:00 00:00:00 [facility] 2019-04-30 2019-04-30 Outpatient [facility] [id number] [place] 00:00:00 00:00:00 [facility] 2019-04-23 2019-04-23 Outpatient [facility] [id number] [place] 11:57:19 11:57:19 [facility] 2019-04-16 2019-04-16 Outpatient [facility] [id number] [place] 00:00:00 00:00:00 [facility] 2019-03-13 2019-03-13 Outpatient [facility] [id number] [place] 00:00:00 00:00:00 [facility] 2019-03-12 2019-03-12 Outpatient [facility] [id number] [place] 00:00:00 00:00:00 [facility] 2019-03-07 2019-03-07 Outpatient [facility] [id number] [place] 13:42:26 13:42:26 Health 2019-02-28 2019-02-28 Outpatient [facility] [id number] [place] 12:44:17 12:44:17 Health 2019-02-28 2019-02-28 Outpatient [facility] [id number] [place] 00:00:00 00:00:00 [facility] 2019-02-12 2019-02-12 Emergency [facility] [id number] [place] 10:34:17 10:34:17 [facility] 2018-11-06 2018-11-06 Outpatient [facility] [id number] [place] 00:00:00 00:00:00 [facility] 2018-09-30 2018-09-30 Outpatient [facility] [id number] [place] 00:00:00 00:00:00 [facility] 2018-09-30 2018-09-30 Outpatient [facility] [id number] [place] 00:00:00 00:00:00 [facility] 2018-09-25 2018-09-25 Outpatient [facility] [id number] [place] 00:00:00 00:00:00 [facility] 2018-09-24 2018-09-24 Outpatient [facility] [id number] [place] 00:00:00 00:00:00 [facility] 2018-08-13 2018-08-13 Inpatient [facility] [id number] [place] 14:09:33 14:09:33 [facility] 2018-08-03 2018-08-03 Outpatient [facility] [id number] [place] 08:30:48 08:30:48 [facility] 2018-08-02 2018-08-02 Inpatient [facility] [id number] [place] 18:20:21 18:20:21 [facility] 2018-08-02 2018-08-02 Outpatient [facility] [id number] [place] 10:46:56 10:46:56 [facility] 2018 2018 Outpatient [facility] [id number] [place] 09:43:06 09:43:06 [facility] 2018-07-19 2018-07-19 Outpatient [facility] [id number] [place] 08:58:18 08:58:18 [facility] 2018-07-15 2018-07-15 Outpatient [facility] [id number] [place] 14:56:06 14:56:06 [facility] 2018-07-08 2018-07-08 Outpatient [facility] [id number] [place] 00:00:00 00:00:00 [facility] 2018-06-24 2018-06-24 Outpatient [facility] [id number] [place] 13:29:46 13:29:46 [facility] 2018-06-24 2018-06-24 Outpatient [facility] [id number] [place] 00:00:00 00:00:00 [facility] 2018-05-22 2018-05-22 Outpatient [facility] [id number] [place] 00:00:00 00:00:00 [facility] 2018-05-21 2018-05-21 Outpatient [facility] [id number] [place] 12:01:37 12:01:37 [facility] 2018-05-21 2018-05-21 Outpatient [facility] [id number] [place] 11:04:03 11:04:03 [facility] 2018-05-06 2018-05-06 Outpatient [facility] [id number] [place] 12:58:42 12:58:42 [facility] 2018-05-06 2018-05-06 Outpatient [facility] [id number] [place] 00:00:00 00:00:00 [facility] 2018-04-22 2018-04-22 Outpatient [facility] [id number] [place] 00:00:00 00:00:00 [facility] 2018-04-22 2018-04-22 Outpatient [facility] [id number] [place] 00:00:00 00:00:00 [facility] 2018-04-04 2018-04-04 Outpatient [facility] [id number] [place] 10:25:29 10:25:29 [facility] 2018-03-29 2018-03-29 Outpatient [facility] [id number] [place] 00:00:00 00:00:00 [facility] 2018-03-29 2018-03-29 Outpatient [facility] [id number] [place] 00:00:00 00:00:00 [facility] 2018-03-27 2018-03-27 Outpatient [facility] [id number] [place] 00:00:00 00:00:00 [facility] 2018-03-18 2018-03-18 Outpatient [facility] [id number] [place] 14:00:21 14:00:21 [facility] 2018-03-14 2018-03-14 Outpatient [facility] [id number] [place] 09:21:05 09:21:05 [facility] 2017 2017 Outpatient [facility] [id number] [place] 15:16:09 15:16:09 [facility] 2017-06-18 2017-06-18 Outpatient [facility] [id number] [place] 00:00:00 00:00:00 [facility] 2017-06-13 2017-06-13 Inpatient [facility] [id number] [place] 13:16:41 13:16:41 [facility] 2017-06-13 2017-06-13 Outpatient [facility] [id number] [place] 11:15:24 11:15:24 [facility] 2017-06-13 2017-06-13 Outpatient [facility] [id number] [place] 00:00:00 00:00:00 [facility] 2017-06-13 2017-06-13 Outpatient [facility] [id number] [place] 00:00:00 00:00:00 [facility] 2017-06-13 2017-06-13 Outpatient [facility] [id number] [place] 00:00:00 00:00:00 [facility] 2017-06-12 2017-06-12 Outpatient [facility] [id number] [place] 00:00:00 00:00:00 [facility] 2017-06-12 2017-06-12 Outpatient [facility] [id number] [place] 00:00:00 00:00:00 [facility] 2017-06-05 2017-06-05 Outpatient [facility] [id number] [place] 11:49:40 11:49:40 [facility] 2017-06-05 2017-06-05 Outpatient [facility] [id number] [place] 09:57:27 09:57:27 [facility] 2017-06-04 2017-06-04 Outpatient [facility] [id number] [place] 00:00:00 00:00:00 [facility] 2017-05-28 2017-05-28 Outpatient [facility] [id number] [place] 16:15:59 16:15:59 [facility] 2017-05-28 2017-05-28 Outpatient [facility] [id number] [place] 14:56:12 14:56:12 [facility] 2017-05-28 2017-05-28 Outpatient [facility] [id number] [place] 12:06:27 12:06:27 [facility] 2017-05-21 2017-05-21 Outpatient [facility] [id number] [place] 00:00:00 00:00:00 [facility] 2017-05-21 2017-05-21 Outpatient [facility] [id number] [place] 00:00:00 00:00:00 [facility] 2017-05-14 2017-05-14 Outpatient [facility] [id number] [place] 17:34:44 17:34:44 [facility] 2017-05-14 2017-05-14 Outpatient [facility] [id number] [place] 15:19:09 15:19:09 [facility] 2017-05-14 2017-05-14 Outpatient [facility] [id number] [place] 00:00:00 00:00:00 [facility] 2017-05-14 2017-05-14 Outpatient [facility] [id number] [place] 00:00:00 00:00:00 [facility] 2017-05-14 2017-05-14 Outpatient [facility] [id number] [place] 00:00:00 00:00:00 [facility] 2017-05-07 2017-05-07 Outpatient [facility] [id number] [place] 10:33:58 10:33:58 [facility] 2017-04-30 2017-04-30 Outpatient [facility] [id number] [place] 14:01:44 14:01:44 Health 2017-04-30 2017-04-30 Outpatient [facility] [id number] [place] 11:57:33 11:57:33 Health 2017-04-30 2017-04-30 Outpatient [facility] [id number] [place] 10:46:51 10:46:51 Health 2017-04-30 2017-04-30 Outpatient [facility] [id number] [place] 00:00:00 00:00:00 [facility] 2017-04-16 2017-04-16 Outpatient [facility] [id number] [place] 13:41:48 13:41:48 Health 2017-04-05 2017-04-05 Outpatient [facility] [id number] [place] 09:49:53 09:49:53 Health 2017-03-19 2017-03-19 Outpatient [facility] [id number] [place] 13:30:03 13:30:03 [facility] 2017-03-19 2017-03-19 Outpatient [facility] [id number] [place] 11:48:14 11:48:14 [facility] 2017-03-19 2017-03-19 Outpatient [facility] [id number] [place] 00:00:00 00:00:00 [facility] 2017-03-05 2017-03-05 Outpatient [facility] [id number] [place] 11:57:40 11:57:40 Health 2017-02-19 2017-02-19 Outpatient [facility] [id number] [place] 15:20:43 15:20:43 [facility] 2017-02-02 2017-02-02 Outpatient [facility] [id number] [place] 12:36:25 12:36:25 Health 2017-01-22 2017-01-22 Outpatient [facility] [id number] [place] 11:44:16 11:44:16 [facility] 2017-01-22 2017-01-22 Outpatient [facility] [id number] [place] 10:25:12 10:25:12 Health 2017-01-03 2017-01-03 Outpatient [facility] [id number] [place] 11:28:23 11:28:23 Health 2016-12-23 2016-12-23 Outpatient [facility] [id number] [place] 14:59:52 14:59:52 Health Results This patient has no known results.
[2021-02-28] MEDS ORDERED: OXYTOCIN/LR 20 UNIT/1,000 ML BAG IV SCH ×2 (04:00→06:00)
[2021-02-28] MEDS ORDERED: OXYTOCIN/LR 20 UNIT/1,000 ML BAG IV ONE (04:05)
[2021-02-28] MEDS ORDERED: CARBOPROST TROME 250 MCG/ML IM PRN (04:14)
[2021-02-28] MEDS ORDERED: Ringers Lactate 1,000 ML IV PRN (04:14)
[2021-02-28] MEDS ORDERED: HYDRALAZINE HCL 20 MG/ML VIAL IV ONE ×2 (04:27→05:46)
[2021-02-28] MEDS ORDERED: Ringers Lactate 1,000 ML IV SCH (05:00)
[2021-02-28] MEDS ORDERED: ONDANSETRON 4 MG (ODT) TAB PO PRN (05:01)
[2021-02-28] MEDS ORDERED: Rho(D) IG (HUMAN) 300 MCG SYR IM PRN (05:01)
[2021-02-28] MEDS ORDERED: MEASLES,MUMPS,RUBELLA VAC 0.5ML SQVAC ONE (05:01)
[2021-02-28] MEDS ORDERED: Tdap (Diph,Pertuss(Acell),Tet Vac) 0.5 ML SYR IMVAC ONE (05:01)
[2021-02-28] MEDS ORDERED: Oxycodone HCl/Acetaminophen 1 TAB TAB PO PRN (05:01)
[2021-02-28] MEDS ORDERED: DOCUSATE NA/SENNA CONC 1 TAB PO PRN (05:01)
[2021-02-28 05:17] LABS: Absolute Lymphocytes (CBC) 1.3 K/uL (0.7-4.9); Basophils % 0.3 % (0-1.3); Hematocrit 31.7 % (36.0-45.0); Lymphocytes % 14.5 % (15.3-44.8); MPV 8.5 fL (7.6-11.3); RBC Red Blood Cell Count 3.87 M/uL (3.86-4.86)
[2021-02-28 05:20] LABS: Urine Appearance CLOUDY (Clear); Urine Bilirubin NEGATIVE (Negative); Urine Blood 2+ (Negative); Urine Color YELLOW (Yellow); Urine Glucose NEGATIVE (Negative); Urine Protein NEGATIVE (Negative); Urine Urobilinogen 0.2 mg/dL (0.2-1.0)
[2021-02-28 05:42] LABS: ALT/SGPT 32 U/L (12-78); AST/SGOT 34 U/L (15-37); Albumin 2.8 g/dL (3.4-5.0); Alkaline Phosphatase 142 U/L (45-117); BUN Blood Urea Nitrogen 10 mg/dL (7-18); Bicarbonate 27 mmol/L (21-32); Bilirubin Direct < 0.1 mg/dL (0-0.2); Bilirubin Total 0.2 mg/dL (0.2-1.0); Glucose Level 104 mg/dL (74-106); Potassium 3.8 mmol/L (3.5-5.1); Protein, Total 6.8 g/dL (6.4-8.2); Sodium Level 136 mmol/L (136-145)
[2021-02-28 05:44] VITALS: BMI 31.6
[2021-02-28 05:54] LABS: Urine Bacteria <20 /HPF (<20)
[2021-02-28] MEDS: IBUPROFEN 200 MG TAB PO PRN ×2 (05:54→18:43)
[2021-02-28] MEDS ORDERED: HYDRALAZINE HCL 20 MG/ML VIAL IV PRN (06:02)
--- NOTE | 2021-02-28 08:15 | DN ---
Date of Procedure: 02/28/2021 Surgeon: Jonny Cortes This is a labor room delivery note. Rachel is a G4, P3 black female, care at [facility] for the past few months. The patient is a poor historian and she stated that she has regular care but however, she missed her recent week c are. She also denies any medical issues, however, later on, she has corrected her statement that her doctor has told her she has high blood pressure, however, she stated that the doctor did not give he r any treatment except to ask her to rest. She arrived into the labor room by ambulance, 8 cm dilate d active phase of labor, category 1 strip, contractions every 2 to 4 minutes and labor progressing fa st. Patient was totally asymptomatic, no headaches, no blurry vision, no upper quadrant pain and no reported rupture of membrane at home. She reported leakage of fluid in the labor room and she was re yvan for 2nd stage of labor. With urgent pushes, baby's head has quickly . Her thigh and l ower legs were placed in the flexed position and abduction and I noted that the baby's head was crown ing. Gentle support on the perineum with the guidance of the baby's head, baby's head was able to be gently delivered followed by slightly rotation, delivery of the right shoulder first which is anteri or followed by the posterior shoulder, body, and delivery finally completed. Baby's nose and mouth w ere bulb suctioned and the cord was clamped and cut. Baby passed on to the nursing staff. Cord bloo d obtained. Placenta delivered in presentation. Gentle fundal massage was done. Uterus showing firm. There was no episiotomy. There were no tears. Total EBL is less than 150 mL. A well baby boy delivered. scores are 8 and 9, weighed 6 pounds 15 ounces. BW/MODL Voice ID: [id number] Report ID: [id number]
[2021-02-28] MEDS: LABETALOL HCL 100 MG TAB PO SCH ×2 (08:55→22:55)
--- NOTE | 2021-02-28 11:51 | HP ---
Date of Admission: 02/28/2021 History Of Present Illness: Rachel Dewey is a 35-year-old, advanced maternal age black female, G4, P3, with a due date of March 04, 2021 at 39 week's gestation, came into the labor room by ambulance w ith onset of contraction after midnight. There was no rupture of membranes and no vaginal bleeding r eported. The patient stated that she has been to the [facility] during the past few months , however, very recently she has missed her appointment. Otherwise, the patient stated that her care has been normal. The patient stated that she has no medical problem with a negative group B strep, however, it turned out that the patient is a poor historian and there are also some language barriers . Her blood pressure initially remained high in the range of 160s over 90s. At the time of admissio n, I paz some labs for preeclampsia workup. However, she denies any headaches, blurry vision or upp er quadrant abdominal pain. She stated that her labor began after midnight and there was no reported recent illness and the fetus has been active. I came to the hospital for evaluation and besides the blood is high, estimated weight is about 7 pounds. NO CPD suspected. She was allowed to labor . Baby's position is cephalic with the cervix 8 dilated, completely effaced with a bulging membrane. Contractions every 2 to 4 minutes. heart tone at baseline at about 135 with a category 1 fet al monitor strip. Allergies: NO KNOWN DRUG ALLERGIES. Past Medical History: She denies any hypertension, diabetes, blood disorders, and she stated that in the past, she has 3 term vaginal deliveries. Age of her children's are 3+, 2+, and 1+. All 3 kids, she carried the baby full-term and had a normal vaginal delivery. Past Surgical History: Negative. Social History: Negative for cigarette smoking or alcohol abuse. Family History: Unremarkable and noncontributory. Review of Systems: Usual related symptoms, most importantly no recent preeclampsia related symptoms Physical Examination: General: She is alert and oriented x3, in labor distress. Vital signs: Blood pressure noted to be 162/96, pulses in 70s, respirations about 12, and she was af ebrile. HEENT: Normal. Neck: Good range of motion. Heart: Regular. Lungs: Clear to auscultation bilaterally. Lung bases are clear bilaterally as well. Abdomen: Fundal height, appropriate for gestational age. Palpable contractions. Nontender in betwee n contractions. Benign, gravid uterus. Extremities: No clubbing, no cyanosis, with a trace general edema. Neurologic: Deep tendon reflexes of lower extremities are +2, non-brisk and no clonus bilaterally. Otherwise, neurological examination is grossly intact. Vaginal: 8 cm dilated, 100% effaced, bulging membrane. station is about 0 station. Final Impression: 1.Intrauterine , 39 week's of gestation. 2.Active labor. 3.Gestational hypertension. Plan: Ruled out preeclampsia, treat high blood pressure accordingly and anticipating vaginal deliver y. BW/MODL Voice ID: [id number]
[2021-03-01 00:16] LABS: RPR (Rapid Plasma Reagin) NON-REACT (NON-REACT)
[2021-03-01] MEDS: IBUPROFEN 200 MG TAB PO PRN (07:41)
[2021-03-01 07:48] VITALS: BP 137/82; TEMP 97.5
[2021-03-02 18:18] LABS: HBsAG Nonreactive (Nonreactive)
== END 2021-03-01 11:40 | disposition home or self-care (01) | DRG 807 ==
LOC: L&D 03:33 → 2ND-WC 03:38
PROVIDERS: ADMIT Obstetrics & Gynecology; ATTEND Obstetrics & Gynecology
PROC: 10E0XZZ Delivery of Products of Conception, External Approach (ICD-10-PCS; principal; 2021-02-28)
DX: O13.4 Gestational [pregnancy-induced] hypertension without significant proteinuria, complicating childbirth (principal); Z37.0 Single live birth; Z3A.39 39 weeks gestation of pregnancy; Z23 Encounter for immunization; Z20.822 Contact with and (suspected) exposure to COVID-19
CPT/HCPCS: 36415; 80048; 80076; 81001; 85025; 86592; 86762; 86850; 86900; 86901; 87340; G0433; J0360; J2590; U0003

== ENCOUNTER 2022-01-12 10:49 | Emergency (ER) | payer SELFPAY ==
--- OUTSIDE RECORDS SUMMARY | 2022-01-12 10:55 | XMS REPORT | Continuity of Care Document ---
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 miconazole 2020-0 Yes [id number] 100mg Insert 1 [facility] 100 mg 2-11 Suppositor ity of vaginal 00:00: y into [place] suppository 00 vagina at [facility] Branch miconazole 2020-0 Yes [id number] 100mg Insert 1 [facility] 100 mg 2-11 Suppositor ity of vaginal 00:00: y into [place] suppository 00 vagina at [facility]. Branch miconazole 2020-0 Yes [id number] 100mg Insert 1 [facility] 100 mg 2-11 Suppositor ity of vaginal 00:00: y into [place] suppository 00 vagina at [facility]. Branch miconazole 2020-0 Yes [id number] 100mg Insert 1 [facility] 100 mg 2-11 Suppositor ity of vaginal 00:00: y into [place] suppository 00 vagina at [facility]. Branch miconazole 2020-0 Yes [id number] 100mg Insert 1 [facility] 100 mg 2-11 Suppositor ity of vaginal 00:00: y into [place] suppository 00 vagina at [facility]. Branch miconazole 2020-0 Yes [id number] 100mg Insert 1 [facility] 100 mg 2-11 Suppositor ity of vaginal 00:00: y into [place] suppository [address] vagina [address] [facility] Branch miconazole 2020-0 Yes [id number] 100mg Insert 1 [facility] 100 mg 2-11 Suppositor ity of vaginal 00:00: y into [place] suppository 00 vagina [address] [facility] Branch miconazole 2020-0 Yes [id number] 100mg Insert 1 [facility] 100 mg 2-11 Suppositor ity of vaginal 00:00: y into [place] suppository 00 vagina at [facility]. Branch miconazole 2020-0 Yes [id number] 100mg Insert 1 [facility] 100 mg 2-11 Suppositor ity of vaginal 00:00: y into [place] suppository 00 vagina at [facility]. Branch miconazole 2020-0 Yes [id number] 100mg Insert 1 [facility] 100 mg 2-11 Suppositor ity of vaginal 00:00: y into [place] suppository 00 vagina at [facility]. Branch miconazole 2020-0 Yes [id number] 100mg Insert 1 [facility] 100 mg 2-11 Suppositor ity of vaginal 00:00: y into [place] suppository 00 vagina at [facility]. Branch miconazole 2020-0 Yes [id number] 100mg Insert 1 [facility] 100 mg 2-11 Suppositor ity of vaginal 00:00: y into [place] suppository 00 vagina at [facility]. Branch miconazole 2020-0 Yes [id number] 100mg Insert 1 [facility] 100 mg 2-11 Suppositor ity of vaginal 00:00: y into [place] suppository 00 vagina at [facility]. Branch miconazole 2020-0 Yes [id number] 100mg Insert 1 [facility] 100 mg 2-11 Suppositor ity of vaginal 00:00: y into [place] suppository 00 vagina at [facility]. Branch miconazole 2020-0 Yes [id number] 100mg Insert 1 [facility] 100 mg 2-11 Suppositor ity of vaginal 00:00: y into [place] suppository 00 vagina at [facility]. Branch miconazole 2020-0 Yes [id number] 100mg Insert 1 [facility] 100 mg 2-11 Suppositor ity of vaginal 00:00: y into [place] suppository 00 vagina at [facility]. Branch miconazole 2020-0 Yes [id number] 100mg Insert 1 [facility] 100 mg 2-11 Suppositor ity of vaginal 00:00: y into [place] suppository 00 vagina at [facility]. Branch miconazole 2020-0 2020- No [id number] 100mg Insert 1 [facility] 100 mg 2-11 05-19 Suppositor ity of vaginal 00:00: 00:00 y into [place] suppository 00 :00 vagina at [facility]. Branch PNV 2021-0 Yes [id number] Take 1 [facility] 102-iron-fo 2-09 TAB-CAP/M2 it y of late-dha 00:00: by mouth [place] (VITAFOL FE 00 daily. Medica l PLUS) 90 mg Branch iron- 1 mg-200 mg Cap PNV Yes [id number] Take 1 [facility] 102-iron-fo 2-09 TAB-CAP/M2 it y of late-dha 00:00: by mouth [place] (VITAFOL FE 00 daily. Medica l PLUS) 90 mg Branch iron- 1 mg-200 mg Cap PNV Yes [id number] Take 1 [facility] 102-iron-fo 2-09 TAB-CAP/M2 it y of late-dha 00:00: by mouth [place] (VITAFOL FE 00 daily. Medica l PLUS) 90 mg Branch iron- 1 mg-200 mg Cap metoclopram Yes [id number] 10mg Take 1 [facility] lucia HCl 10 2-09 tablet by ity of mg tablet 00:00: mouth [place] 00 every 6 Medical (six) Branch hours as needed for Nausea and Vomiting (N/V). PNV Yes [id number] Take 1 [facility] 102-iron-fo 2-09 TAB-CAP/M2 it y of late-dha 00:00: by mouth [place] (VITAFOL FE 00 daily. Medica l PLUS) 90 mg Branch iron- 1 mg-200 mg Cap metoclopram Yes [id number] 10mg Take 1 [facility] lucia HCl 10 2-09 tablet by ity of mg tablet 00:00: mouth [place] 00 every 6 Medical (six) Branch hours as needed for Nausea and Vomiting (N/V). PNV 0 Yes [id number] Take 1 [facility] 102-iron-fo 2-09 TAB-CAP/M2 it y of late-dha 00:00: by mouth [place] (VITAFOL FE 00 daily. Medica l PLUS) 90 mg Branch iron- 1 mg-200 mg Cap metoclopram Yes [id number] 10mg Take 1 [facility] lucia HCl 10 2-09 tablet by ity of mg tablet 00:00: mouth [place] 00 every 6 Medical (six) Branch hours as needed for Nausea and Vomiting (N/V). PNV Yes [id number] Take 1 [facility] 102-iron-fo 2-09 TAB-CAP/M2 it y of late-dha 00:00: by mouth [place] (VITAFOL FE 00 daily. Medica l PLUS) 90 mg Branch iron- 1 mg-200 mg Cap metoclopram 2020-0 Yes [id number] 10mg Take 1 [facility] lucia HCl 10 2-09 tablet by ity of mg tablet 00:00: mouth [place] 00 every 6 Medical (six) Branch hours as needed for Nausea and Vomiting (N/V). PNV 2020-0 Yes [id number] Take 1 [facility] 102-iron-fo 2-09 TAB-CAP/M2 it y of late-dha 00:00: by mouth [place] (VITAFOL FE 00 daily. Medica l PLUS) 90 mg Branch iron- 1 mg-200 mg Cap metoclopram 2020-0 Yes [id number] 10mg Take 1 [facility] lucia HCl 10 2-09 tablet by ity of mg tablet 00:00: mouth [place] 00 every 6 Medical (six) Branch hours as needed for Nausea and Vomiting (N/V). PNV 2020-0 Yes [id number] Take 1 [facility] 102-iron-fo 2-09 TAB-CAP/M2 it y of late-dha 00:00: by mouth [place] (VITAFOL FE 00 daily. Medica l PLUS) 90 mg Branch iron- 1 mg-200 mg Cap metoclopram 2020-0 Yes [id number] 10mg Take 1 [facility] lucia HCl 10 2-09 tablet by ity of mg tablet 00:00: mouth [place] 00 every 6 Medical (six) Branch hours as needed for Nausea and Vomiting (N/V). PNV 2020-0 Yes [id number] Take 1 [facility] 102-iron-fo 2-09 TAB-CAP/M2 it y of late-dha 00:00: by mouth [place] (VITAFOL FE 00 daily. Medica l PLUS) 90 mg Branch iron- 1 mg-200 mg Cap metoclopram 2020-0 Yes [id number] 10mg Take 1 [facility] lucia HCl 10 2-09 tablet by ity of mg tablet 00:00: mouth [place] 00 every 6 Medical (six) Branch hours as needed for Nausea and Vomiting (N/V). PNV 2020-0 Yes [id number] Take 1 [facility] 102-iron-fo 2-09 TAB-CAP/M2 it y of late-dha 00:00: by mouth [place] (VITAFOL FE 00 daily. Medica l PLUS) 90 mg Branch iron- 1 mg-200 mg Cap metoclopram 2020-0 Yes [id number] 10mg Take 1 [facility] lucia HCl 10 2-09 tablet by ity of mg tablet 00:00: mouth [place] 00 every 6 Medical (six) Branch hours as needed for Nausea and Vomiting (N/V). PNV 2020-0 Yes [id number] Take 1 [facility] 102-iron-fo 2-09 TAB-CAP/M2 it y of late-dha 00:00: by mouth [place] (VITAFOL FE daily. Medica l PLUS) 90 mg Branch iron- 1 mg-200 mg Cap metoclopram 2020-0 Yes [id number] 10mg Take 1 [facility] lucia HCl 10 2-09 tablet by ity of mg tablet 00:00: mouth [place] 00 every 6 Medical (six) Branch hours as needed for Nausea and Vomiting (N/V). PNV 2020-0 Yes [id number] Take 1 [facility] 102-iron-fo 2-09 TAB-CAP/M2 it y of late-dha 00:00: by mouth [place] (VITAFOL FE daily. Medica l PLUS) 90 mg Branch iron- 1 mg-200 mg Cap metoclopram 2020-0 Yes [id number] 10mg Take 1 [facility] lucia HCl 10 2-09 tablet by ity of mg tablet 00:00: mouth [place] 00 every 6 Medical (six) Branch hours as needed for Nausea and Vomiting (N/V). PNV 2020-0 Yes [id number] Take 1 [facility] 102-iron-fo 2-09 TAB-CAP/M2 it y of late-dha 00:00: by mouth [place] (VITAFOL FE daily. Medica l PLUS) 90 mg Branch iron- 1 mg-200 mg Cap metoclopram 2020-0 Yes [id number] 10mg Take 1 [facility] lucia HCl 10 2-09 tablet by ity of mg tablet 00:00: mouth [place] 00 every 6 Medical (six) Branch hours as needed for Nausea and Vomiting (N/V). PNV 2020-0 Yes [id number] Take 1 [facility] 102-iron-fo 2-09 TAB-CAP/M2 it y of late-dha 00:00: by mouth [place] (VITAFOL FE daily. Medica l PLUS) 90 mg Branch iron- 1 mg-200 mg Cap metoclopram 0 Yes [id number] 10mg Take 1 [facility] lucia HCl 10 2-09 tablet by ity of mg tablet 00:00: mouth [place] 00 every 6 Medical (six) Branch hours as needed for Nausea and Vomiting (N/V). PNV 2020-0 Yes [id number] Take 1 [facility] 102-iron-fo 2-09 TAB-CAP/M2 it y of late-dha 00:00: by mouth [place] (VITAFOL FE 00 daily. Medica l PLUS) 90 mg Branch iron- 1 mg-200 mg Cap metoclopram 0 Yes [id number] 10mg Take 1 [facility] lucia HCl 10 2-09 tablet by ity of mg tablet 00:00: mouth [place] 00 every 6 Medical (six) Branch hours as needed for Nausea and Vomiting (N/V). PNV 0 Yes [id number] Take 1 [facility] 102-iron-fo 2-09 TAB-CAP/M2 it y of late-dha 00:00: by mouth [place] (VITAFOL FE 00 daily. Medica l PLUS) 90 mg Branch iron- 1 mg-200 mg Cap metoclopram 0 Yes [id number] 10mg Take 1 [facility] lucia HCl 10 2-09 tablet by ity of mg tablet 00:00: mouth [place] 00 every 6 Medical (six) Branch hours as needed for Nausea and Vomiting (N/V). PNV 0 Yes [id number] Take 1 [facility] 102-iron-fo 2-09 TAB-CAP/M2 it y of late-dha 00:00: by mouth [place] (VITAFOL FE daily. Medica l PLUS) 90 mg Branch iron- 1 mg-200 mg Cap metoclopram 2020-0 Yes [id number] 10mg Take 1 [facility] lucia HCl 10 2-09 tablet by ity of mg tablet 00:00: mouth [place] 00 every 6 Medical (six) Branch hours as needed for Nausea and Vomiting (N/V). PNV 2020-0 Yes [id number] Take 1 [facility] 102-iron-fo 2-09 TAB-CAP/M2 it y of late-dha 00:00: by mouth [place] (VITAFOL FE 00 daily. Medica l PLUS) 90 mg Branch iron- 1 mg-200 mg Cap metoclopram 0 Yes [id number] 10mg Take 1 [facility] lucia HCl 10 2-09 tablet by ity of mg tablet 00:00: mouth [place] 00 every 6 Medical (six) Branch hours as needed for Nausea and Vomiting (N/V). PNV 0 Yes [id number] Take 1 [facility] 102-iron-fo 2-09 TAB-CAP/M2 it y of late-dha 00:00: by mouth [place] (VITAFOL FE 00 daily. Medica l PLUS) 90 mg Branch iron- 1 mg-200 mg Cap metoclopram 0 Yes [id number] 10mg Take 1 [facility] lucia HCl 10 2-09 tablet by ity of mg tablet 00:00: mouth [place] 00 every 6 Medical (six) Branch hours as needed for Nausea and Vomiting (N/V). PNV Yes [id number] Take 1 [facility] 102-iron-fo 2-09 TAB-CAP/M2 it y of late-dha 00:00: by mouth [place] (VITAFOL FE 00 daily. Medica l PLUS) 90 mg Branch iron- 1 mg-200 mg Cap metoclopram 0 Yes [id number] 10mg Take 1 [facility] lucia HCl 10 2-09 tablet by ity of mg tablet 00:00: mouth [place] 00 every 6 Medical (six) Branch hours as needed for Nausea and Vomiting (N/V). PNV 0 Yes [id number] Take 1 [facility] 102-iron-fo 2-09 TAB-CAP/M2 it y of late-dha 00:00: by mouth [place] (VITAFOL FE 00 daily. Medica l PLUS) 90 mg Branch iron- 1 mg-200 mg Cap PNV 0 Yes [id number] Take 1 [facility] 102-iron-fo 2-09 TAB-CAP/M2 it y of late-dha 00:00: by mouth [place] (VITAFOL FE 00 daily. Medica l PLUS) 90 mg Branch iron- 1 mg-200 mg Cap PNV 2020-0 Yes [id number] Take 1 [facility] 102-iron-fo 2-09 TAB-CAP/M2 it y of late-dha 00:00: by mouth [place] (VITAFOL FE 00 daily. Medica l PLUS) 90 mg Branch iron- 1 mg-200 mg Cap PNV 0 Yes [id number] Take 1 [facility] 102-iron-fo 2-09 TAB-CAP/M2 it y of late-dha 00:00: by mouth [place] (VITAFOL FE 00 daily. Medica l PLUS) 90 mg Branch iron- 1 mg-200 mg Cap PNV 2020-0 Yes [id number] Take 1 [facility] 102-iron-fo 2-09 TAB-CAP/M2 it y of late-dha 00:00: by mouth [place] (VITAFOL FE 00 daily. Medica l PLUS) 90 mg Branch iron- 1 mg-200 mg Cap PNV 2020-0 Yes [id number] Take 1 [facility] 102-iron-fo 2-09 TAB-CAP/M2 it y of late-dha 00:00: by mouth [place] (VITAFOL FE 00 daily. Medica l PLUS) 90 mg Branch iron- 1 mg-200 mg Cap PNV 2020-0 Yes [id number] Take 1 [facility] 102-iron-fo 2-09 TAB-CAP/M2 it y of late-dha 00:00: by mouth [place] (VITAFOL FE 00 daily. Medica l PLUS) 90 mg Branch iron- 1 mg-200 mg Cap PNV 2020-0 Yes [id number] Take 1 [facility] 102-iron-fo 2-09 TAB-CAP/M2 it y of late-dha 00:00: by mouth [place] (VITAFOL FE 00 daily. Medica l PLUS) 90 mg Branch iron- 1 mg-200 mg Cap PNV 2020-0 Yes [id number] Take 1 [facility] 102-iron-fo 2-09 TAB-CAP/M2 it y of late-dha 00:00: by mouth [place] (VITAFOL FE 00 daily. Medica l PLUS) 90 mg Branch iron- 1 mg-200 mg Cap PNV 2020-0 Yes [id number] Take 1 [facility] 102-iron-fo 2-09 TAB-CAP/M2 it y of late-dha 00:00: by mouth [place] (VITAFOL FE 00 daily. Medica l PLUS) 90 mg Branch iron- 1 mg-200 mg Cap PNV 2020-0 Yes [id number] Take 1 [facility] 102-iron-fo 2-09 TAB-CAP/M2 it y of late-dha 00:00: by mouth [place] (VITAFOL FE 00 daily. Medica l PLUS) 90 mg Branch iron- 1 mg-200 mg Cap PNV 2020-0 Yes [id number] Take 1 [facility] 102-iron-fo 2-09 TAB-CAP/M2 it y of late-dha 00:00: by mouth [place] (VITAFOL FE 00 daily. Medica l PLUS) 90 mg Branch iron- 1 mg-200 mg Cap PNV 2020-0 Yes [id number] Take 1 [facility] 102-iron-fo 2-09 TAB-CAP/M2 it y of late-dha 00:00: by mouth [place] (VITAFOL FE 00 daily. Medica l PLUS) 90 mg Branch iron- 1 mg-200 mg Cap PNV 2020-0 Yes [id number] Take 1 [facility] 102-iron-fo 2-09 TAB-CAP/M2 it y of late-dha 00:00: by mouth [place] (VITAFOL FE 00 daily. Medica l PLUS) 90 mg Branch iron- 1 mg-200 mg Cap PNV 2020-0 Yes [id number] Take 1 [facility] 102-iron-fo 2-09 TAB-CAP/M2 it y of late-dha 00:00: by mouth [place] (VITAFOL FE 00 daily. Medica l PLUS) 90 mg Branch iron- 1 mg-200 mg Cap PNV 2020-0 Yes [id number] Take 1 [facility] 102-iron-fo 2-09 TAB-CAP/M2 it y of late-dha 00:00: by mouth [place] (VITAFOL FE 00 daily. Medica l PLUS) 90 mg Branch iron- 1 mg-200 mg Cap PNV 2020-0 Yes [id number] Take 1 [facility] 102-iron-fo 2-09 TAB-CAP/M2 it y of late-dha 00:00: by mouth [place] (VITAFOL FE 00 daily. Medica l PLUS) 90 mg Branch iron- 1 mg-200 mg Cap PNV 2020-0 Yes [id number] Take 1 [facility] 102-iron-fo 2-09 TAB-CAP/M2 it y of late-dha 00:00: by mouth [place] (VITAFOL FE 00 daily. Medica l PLUS) 90 mg Branch iron- 1 mg-200 mg Cap PNV 2020-0 Yes [id number] Take 1 [facility] 102-iron-fo 2-09 TAB-CAP/M2 it y of late-dha 00:00: by mouth [place] (VITAFOL FE 00 daily. Medica l PLUS) 90 mg Branch iron- 1 mg-200 mg Cap PNV 2020-0 Yes [id number] Take 1 [facility] 102-iron-fo 2-09 TAB-CAP/M2 it y of late-dha 00:00: by mouth [place] (VITAFOL FE 00 daily. Medica l PLUS) 90 mg Branch iron- 1 mg-200 mg Cap PNV 2020-0 Yes [id number] Take 1 [facility] 102-iron-fo 2-09 TAB-CAP/M2 it y of late-dha 00:00: by mouth [place] (VITAFOL FE 00 daily. Medica l PLUS) 90 mg Branch iron- 1 mg-200 mg Cap PNV 2020-0 Yes [id number] Take 1 [facility] 102-iron-fo 2-09 TAB-CAP/M2 it y of late-dha 00:00: by mouth [place] (VITAFOL FE 00 daily. Medica l PLUS) 90 mg Branch iron- 1 mg-200 mg Cap PNV 2020-0 Yes [id number] Take 1 [facility] 102-iron-fo 2-09 TAB-CAP/M2 it y of late-dha 00:00: by mouth [place] (VITAFOL FE 00 daily. Medica l PLUS) 90 mg Branch iron- 1 mg-200 mg Cap PNV 2020-0 Yes [id number] Take 1 [facility] 102-iron-fo 2-09 TAB-CAP/M2 it y of late-dha 00:00: by mouth [place] (VITAFOL FE 00 daily. Medica l PLUS) 90 mg Branch iron- 1 mg-200 mg Cap PNV 2020-0 Yes [id number] Take 1 [facility] 102-iron-fo 2-09 TAB-CAP/M2 it y of late-dha 00:00: by mouth [place] (VITAFOL FE 00 daily. Medica l PLUS) 90 mg Branch iron- 1 mg-200 mg Cap PNV 2020-0 Yes [id number] Take 1 [facility] 102-iron-fo 2-09 TAB-CAP/M2 it y of late-dha 00:00: by mouth [place] (VITAFOL FE 00 daily. Medica l PLUS) 90 mg Branch iron- 1 mg-200 mg Cap PNV 2020-0 Yes [id number] Take 1 [facility] 102-iron-fo 2-09 TAB-CAP/M2 it y of late-dha 00:00: by mouth [place] (VITAFOL FE 00 daily. Medica l PLUS) 90 mg Branch iron- 1 mg-200 mg Cap PNV 2020-0 Yes [id number] Take 1 [facility] 102-iron-fo 2-09 TAB-CAP/M2 it y of late-dha 00:00: by mouth [place] (VITAFOL FE 00 daily. Medica l PLUS) 90 mg Branch iron- 1 mg-200 mg Cap PNV 2020-0 Yes [id number] Take 1 [facility] 102-iron-fo 2-09 TAB-CAP/M2 it y of late-dha 00:00: by mouth [place] (VITAFOL FE 00 daily. Medica l PLUS) 90 mg Branch iron- 1 mg-200 mg Cap PNV 2020-0 Yes [id number] Take 1 [facility] 102-iron-fo 2-09 TAB-CAP/M2 it y of late-dha 00:00: by mouth [place] (VITAFOL FE 00 daily. Medica l PLUS) 90 mg Branch iron- 1 mg-200 mg Cap PNV 2020-0 Yes [id number] Take 1 [facility] 102-iron-fo 2-09 TAB-CAP/M2 it y of late-dha 00:00: by mouth [place] (VITAFOL FE 00 daily. Medica l PLUS) 90 mg Branch iron- 1 mg-200 mg Cap PNV 2020-0 Yes [id number] Take 1 [facility] 102-iron-fo 2-09 TAB-CAP/M2 it y of late-dha 00:00: by mouth [place] (VITAFOL FE 00 daily. Medica l PLUS) 90 mg Branch iron- 1 mg-200 mg Cap PNV 2020-0 Yes [id number] Take 1 [facility] 102-iron-fo 2-09 TAB-CAP/M2 it y of late-dha 00:00: by mouth [place] (VITAFOL FE 00 daily. Medica l PLUS) 90 mg Branch iron- 1 mg-200 mg Cap PNV 2020-0 Yes [id number] Take 1 [facility] 102-iron-fo 2-09 TAB-CAP/M2 it y of late-dha 00:00: by mouth [place] (VITAFOL FE 00 daily. Medica l PLUS) 90 mg Branch iron- 1 mg-200 mg Cap PNV 2020-0 Yes [id number] Take 1 [facility] 102-iron-fo 2-09 TAB-CAP/M2 it y of late-dha 00:00: by mouth [place] (VITAFOL FE 00 daily. Medica l PLUS) 90 mg Branch iron- 1 mg-200 mg Cap PNV 2020-0 Yes [id number] Take 1 [facility] 102-iron-fo 2-09 TAB-CAP/M2 it y of late-dha 00:00: by mouth [place] (VITAFOL FE 00 daily. Medica l PLUS) 90 mg Branch iron- 1 mg-200 mg Cap PNV Yes [id number] Take 1 [facility] 102-iron-fo 2- TAB-CAP/M2 it y of late-dha 00:00: by mouth [place] (VITAFOL FE 00 daily. Medica l PLUS) 90 mg Branch iron- 1 mg-200 mg Cap metoclopram 2020- No [id number] 10mg Take 1 [facility] lucia HCl 10 09-07 tablet by it of mg tablet 00:00: 00:00 mouth [place] 00 :00 every 6 Medical (six) Branch hours as needed for Nausea and Vomiting (N/V). Yes Take by Alberto 25/iron 1-21 mouth. Health fum/folic/d 14:25: guerrero 02 (-1 OR) Yes 1{tbl} QD Take 1 Harri s vitamin 1-21 (spontaneou tablet by [employer] tablet 00:00: s vaginal mouth 00 delivery) daily Pharmacist may select any Vitamin product covered on the patient's insurance for new rxs and refills. ibuprofen Yes 800mg Take 1 Harri s (MOTRIN) 1-21 (spontaneou tablet by Health 800 mg 00:00: s vaginal mouth tablet 00 delivery) every 8 hours as needed for Pain. Immunizations Ordered Filled Immunization Date Status Comments [facility] Immunization Name Name [facility] 2020-12-15 Completed [facility] of 00:00:00 [facility] TDAP 2020-12-15 Completed University of 00:00: [facility] TDAP 2020-12-15 Completed University of 00:00:00 [facility] TDAP 2020-12-15 Completed University of 00:00:00 [facility] TDAP 2020-12-15 Completed University of 00:00:00 [facility] TDAP 2020-12-15 Completed University of 00:00:00 [facility] TDAP 2020-12-15 Completed University of 00:00:00 [facility] TDAP 2020-12-15 Completed University of 00:00:00 [facility] TDAP 2020-12-15 Completed University of 00:00:00 [place] [facility] TDAP 2020-12-15 Completed [facility] of 00:00:00 [place] [facility] TDAP 2020-12-15 Completed University of 00:00:00 [place] [facility] TDAP 2020-12-15 Completed [facility] of 00:00:00 [place] [facility] TDAP 2020-12-15 Completed [facility] of 00:00:00 [place] [facility] TDAP 2020-12-15 Completed [facility] of 00:00:00 [place] [facility] TDAP 2020-12-15 Completed University of 00:00:00 [place] [facility] TDAP 2020-12-15 Completed University of 00:00:00 [place] [facility] TDAP 2020-12-15 Completed University of 00:00:00 [place] [facility] TDAP 2020-12-15 Completed University of 00:00:00 [place] [facility] TDAP 2020-12-15 Completed University of 00:00:00 [facility] TDAP 2020-12-15 Completed University of 00:00:00 [facility] TDAP 2020-12-15 Completed University of 00:00:00 [facility] Branch TDAP 2020-12-15 Completed University of 00:00:00 [facility] Branch TDAP 2020-12-15 Completed University of 00:00:00 [facility] Branch TDAP 2020-12-15 Completed University of 00:00:00 [facility] Branch TDAP 2020-12-15 Completed University of 00:00:00 [facility] Branch TDAP 2020-12-15 Completed University of 00:00:00 [facility] Branch TDAP 2020-12-15 Completed University of 00:00:00 [place] [facility] TDAP 2020-12-15 Completed University of 00:00:00 [facility] Branch TDAP 2020-12-15 Completed University of 00:00:00 [facility] Branch TDAP 2020-12-15 Completed University of 00:00:00 [place] [facility] TDAP 2020-12-15 Completed University of 00:00:00 [place] [facility] TDAP 2020-12-15 Completed University of 00:00:00 [place] [facility] TDAP 2020-12-15 Completed University of 00:00:00 [facility] Branch TDAP 2020-12-15 Completed University of 00:00:00 [place] [facility] TDAP 2020-12-15 Completed University of 00:00:00 [facility] TDAP 2020-12-15 Completed University of 00:00:00 [facility] TDAP 2020-12-15 Completed University of 00:00:00 [facility] Influenza Virus 2020-09-07 Completed Universit y of Vaccine Quad .5 mL 00:00:00 [place] [facility] 6+ MO Branch Influenza Virus 2020-09-07 Completed Universit y of Vaccine Quad .5 mL 00:00:00 [place] [facility] IM 6+ MO Branch Influenza Virus 2020-09-07 Completed Universit y of Vaccine [facility] .5 mL 00:00:00 [place] [facility] IM 6+ MO Branch Influenza Virus 2020-09-07 Completed Universit y of Vaccine Quad .5 mL 00:00:00 [place] [facility] IM 6+ MO Branch Influenza Virus 2020-09-07 Completed Universit y of Vaccine [facility] .5 mL 00:00:00 [place] [facility] IM 6+ MO Branch Influenza Virus 2020-09-07 Completed Universit y of Vaccine Quad .5 mL 00:00:00 [place] [facility] IM 6+ MO Branch Influenza Virus 2020-09-07 Completed Universit y of Vaccine [facility] .5 mL 00:00:00 [place] [facility] IM 6+ MO Branch Influenza Virus 2020-09-07 Completed Universit y of Vaccine [facility] .5 mL 00:00:00 [place] [facility] IM 6+ MO Branch Influenza Virus 2020-09-07 Completed Universit y of Vaccine [facility] .5 mL 00:00:00 [place] [facility] IM 6+ MO Branch Influenza Virus 2020-09-07 Completed Universit y of Vaccine [facility] .5 mL 00:00:00 [place] [facility] IM 6+ MO Branch Influenza Virus 2020-09-07 Completed Universit y of Vaccine Quad .5 mL 00:00:00 [place] [facility] IM 6+ MO Branch Influenza Virus 2020-09-07 Completed Universit y of Vaccine [facility] .5 mL 00:00:00 [place] [facility] IM 6+ MO Branch Influenza Virus 2020-09-07 Completed Universit y of Vaccine [facility] .5 mL 00:00:00 [place] [facility] IM 6+ MO Branch Influenza Virus 2020-09-07 Completed Universit y of Vaccine [facility] .5 mL 00:00:00 [place] [facility] IM 6+ MO Branch Influenza Virus 2020-09-07 Completed Universit y of Vaccine [facility] .5 mL 00:00:00 [place] [facility] IM 6+ MO Branch Influenza Virus 2020-09-07 Completed Universit y of Vaccine [facility] .5 mL 00:00:00 [place] [facility] IM 6+ MO Branch Influenza Virus 2020-09-07 Completed Universit y of Vaccine [facility] .5 mL 00:00:00 [place] [facility] IM 6+ MO Branch Influenza Virus 2020-09-07 Completed Universit y of Vaccine [facility] .5 mL 00:00:00 [place] [facility] IM 6+ MO Branch Influenza Virus 2020-09-07 Completed Universit y of Vaccine [facility] .5 mL 00:00:00 [place] [facility] IM 6+ MO Branch Influenza Virus 2020-09-07 Completed Universit y of Vaccine [facility] .5 mL 00:00:00 [place] [facility] IM 6+ MO Branch Influenza Virus 2020-09-07 Completed Universit y of Vaccine [facility] .5 mL 00:00:00 [place] [facility] IM 6+ MO Branch Influenza Virus 2020-09-07 Completed Universit y of [facility]ine [facility] .5 mL 00:00:00 [place] [facility] IM 6+ MO Branch Influenza Virus 2020-09-07 Completed Universit y of Vaccine [facility] .5 mL 00:00:00 [place] [facility] IM 6+ MO Branch Influenza Virus 2020-09-07 Completed Universit y of Vaccine [facility] .5 mL 00:00:00 [place] [facility] IM 6+ MO Branch Influenza Virus 2020-09-07 Completed Universit y of Vaccine [facility] .5 mL 00:00:00 [place] [facility] IM 6+ MO Branch Influenza Virus 2020-09-07 Completed Universit y of Vaccine [facility] .5 mL 00:00:00 [place] [facility] IM 6+ MO Branch Influenza Virus 2020-09-07 Completed Universit y of Vaccine [facility] .5 mL 00:00:00 [place] [facility] IM 6+ MO Branch Influenza Virus 2020-09-07 Completed Universit y of Vaccine Quad .5 mL 00:00:00 [facility] Influenza Virus 2020-09-07 Completed Universit y of Vaccine Quad .5 mL 00:00:00 [facility] Influenza Virus 2020-09-07 Completed Universit y of Vaccine Quad .5 mL 00:00:00 [facility] Influenza Virus 2020-09-07 Completed Universit y of Vaccine Quad .5 mL 00:00:00 [facility] Influenza Virus 2020-09-07 Completed Universit y of Vaccine Quad .5 mL 00:00:00 [facility] Influenza Virus 2020-09-07 Completed Universit y of Vaccine Quad .5 mL 00:00:00 [facility] Influenza Virus 2020-09-07 Completed Universit y of Vaccine Quad .5 mL 00:00:00 [facility] Influenza Virus 2020-09-07 Completed Universit y of Vaccine Quad .5 mL 00:00:00 [facility] Influenza Virus 2020-09-07 Completed Universit y of Vaccine Quad .5 mL 00:00:00 [facility] Influenza Virus 2020-09-07 Completed Universit y of Vaccine Quad .5 mL 00:00:00 [facility] Influenza Virus 2020-09-07 Completed Universit y of Vaccine Quad .5 mL 00:00:00 [facility] Influenza Virus 2020-09-07 Completed Universit y of Vaccine Quad .5 mL 00:00:00 [facility] Influenza Virus 2020-09-07 Completed Universit y of Vaccine Quad .5 mL 00:00:00 [facility] Influenza Virus 2020-09-07 Completed Universit y of Vaccine Quad .5 mL 00:00:00 [facility] Influenza Virus 2020-09-07 Completed Universit y of Vaccine Quad .5 mL 00:00:00 [facility] Influenza Virus 2020-09-07 Completed Universit y of Vaccine Quad .5 mL 00:00:00 [facility] Influenza Virus 2020-09-07 Completed Universit y of Vaccine Quad .5 mL 00:00:00 [facility] Influenza Virus 2020-09-07 Completed Universit y of Vaccine Quad .5 mL 00:00:00 [facility] Influenza Virus 2020-09-07 Completed Universit y of Vaccine Quad .5 mL 00:00:00 [facility] Influenza Virus 2020-09-07 Completed Universit y of Vaccine Quad .5 mL 00:00:00 [facility] Influenza Virus 2020-09-07 Completed Universit y of Vaccine Quad .5 mL 00:00:00 [facility] Influenza Virus 2020-09-07 Completed Universit y of Vaccine Quad .5 mL 00:00:00 [facility] Influenza Virus 2020-09-07 Completed Universit y of Vaccine Quad .5 mL 00:00:00 [facility] Influenza Virus 2020-09-07 Completed Universit y of Vaccine Quad .5 mL 00:00:00 [facility] Influenza Virus 2020-09-07 Completed Universit y of Vaccine Quad .5 mL 00:00:00 [facility] Influenza Virus 2020-09-07 Completed Universit y of Vaccine Quad .5 mL 00:00:00 [facility] 6[facility] Influenza Virus 2020-09-07 Completed Universit y of Vaccine Quad .5 mL 00:00:00 [facility] Influenza Virus 2020-09-07 Completed Universit y of Vaccine Quad .5 mL 00:00:00 [facility] Influenza Virus 2020-09-07 Completed Universit y of Vaccine Quad .5 mL 00:00:00 [facility] 6+ MO Branch Influenza Virus 2020-09-07 Completed Universit y of Vaccine Quad .5 mL 00:00:[address] [facility] 6+ MO Branch Influenza, 2019-06-17 Completed [facility] Vaccine<FLUCELVAX>( 00:00:00 Multi-Dose) TDAP 2018-07-15 Completed University of 00:00:00 [facility] TDAP 2018-07-15 Completed University of 00:00:00 [facility] TDAP 2018-07-15 Completed University of 00:00:00 [facility] TDAP 2018-07-15 Completed University of 00:00:00 [facility] Tdap (Tetanus 2018-07-15 Completed [facility] Toxoid, Reduced 00:00:00 Diphtheria Toxoid And Acellular Pertussis, Absorbed) Influenza, 2018-05-21 Completed [facility] Vaccine<FLUCELVAX>( 00:00:00 Multi-Dose) TDAP 2017-04-05 Completed University of 00:00:00 [facility] TDAP 2017-04-05 Completed University of 00:00:00 [facility] TDAP 2017-04-05 Completed University of 00:00:00 [facility] TDAP 2017-04-05 Completed University of 00:00:00 [facility] Tdap (Tetanus 2017-04-05 Completed [facility] Toxoid, Reduced 00:00:00 Diphtheria Toxoid And Acellular Pertussis, Absorbed) Vital Signs Vital Name Observation Time Observation Value Comments Source Systolic blood 2021-03-29 20:12:00 150 mm[Hg] Univer sity of pressure [facility] Diastolic blood 2021-03-29 20:12:00 93 mm[Hg] Unive rsity of pressure [facility] Heart rate 2021-03-29 20:11:00 67 /min [facility]i ty of [facility] Body temperature 2021-03-29 20:11:00 36.5 Nae Univ ersity of [facility] Respiratory rate 2021-03-29 20:11:00 18 /min Univ ersity of [facility] Body height 2021-03-29 20:11:00 165.1 cm [facility]i ty [facility] [place] Body weight 2021-03-29 20:11:00 84.596 kg [facility] BMI 2021-03-29 20:11:00 31.04 kg/m2 [facility] ty [facility] Systolic blood 2021-02-15 21:13:00 126 mm[Hg] Univer sity of pressure [facility] Diastolic blood 2021-02-15 21:13:00 85 mm[Hg] Unive rsity of [facility] [place] Heart rate 2021-02-15 21:13:00 81 /min Universi ty of [facility] Body temperature 2021-02-15 21:07:00 36.22 Nae Univ ersity of [facility] Respiratory rate 2021-02-15 21:07:00 18 /min Univ ersity of [facility] Body height 2021-02-15 21:07:00 165.1 cm [facility]i ty [facility] Body weight 2021-02-15 21:07:00 86.592 kg [facility] BMI 2021-02-15 21:07:00 31.77 kg/m2 Universi ty of [facility] Oxygen saturation in 2021-02-15 21:07:00 99 /min University Arterial blood by [facility] Pulse oximetry Branch Systolic blood 2021-02-14 21:09:00 135 mm[Hg] Univer sity of pressure [facility] Diastolic blood 2021-02-14 21:09:00 87 mm[Hg] Unive rsity of pressure [facility] Heart rate 2021-02-14 21:09:00 80 /min Universi ty [facility] Body temperature 2021-02-14 21:09:00 37.56 Nae Univ ersity of [facility] Respiratory rate 2021-02-14 21:09:00 16 /min Univ ersity of [facility] Body height 2021-02-14 21:09:00 165.1 cm [facility] Body weight 2021-02-14 21:09:00 88.089 kg [facility]i ty [facility] BMI 2021-02-14 21:09:00 32.32 kg/m2 [facility] Systolic blood 2021-02-14 21:09:00 135 mm[Hg] Univer sity of pressure [facility] Diastolic blood 2021-02-14 21:09:00 87 mm[Hg] Unive rsity of pressure [facility] Heart rate 2021-02-14 21:09:00 80 /min [facility]i ty [facility] Body temperature 2021-02-14 21:09:00 37.56 Nae Univ ersity of [facility] Respiratory rate 2021-02-14 21:09:00 16 /min Univ ersity of [facility] Body height 2021-02-14 21:09:00 165.1 cm [facility] ty [facility] Body weight 2021-02-14 21:09:00 88.089 kg [facility]i [facility] BMI 2021-02-14 21:09:00 32.32 kg/m2 [facility] Systolic blood 2021-02-09 16:05:00 124 mm[Hg] Univer sity of pressure [facility] Diastolic blood 2021-02-09 16:05:00 83 mm[Hg] Unive rsity of pressure [facility] Heart rate 2021-02-09 16:05:00 76 /min [facility]i [facility] Body temperature 2021-02-09 16:05:00 37.17 Nae Univ ersity of [facility] Respiratory rate 2021-02-09 16:05:00 16 /min Univ ersity of [facility] Body height 2021-02-09 16:05:00 165.1 cm [facility]i ty [facility] Body weight 2021-02-09 16:05:00 86.909 kg [facility] BMI 2021-02-09 16:05:00 31.88 kg/m2 [facility] Systolic blood 2021-02-02 21:13:00 124 mm[Hg] Univer sity of pressure [facility] Diastolic blood 2021-02-02 21:13:00 82 mm[Hg] Unive rsity of pressure [facility] Heart rate 2021-02-02 21:13:00 76 /min [facility]i ty [facility] Body temperature 2021-02-02 21:13:00 36.67 Nae Univ ersity [facility] Respiratory rate 2021-02-02 21:13:00 18 /min Univ ersity of [facility] Body height 2021-02-02 21:13:00 165.1 cm [facility] Body weight 2021-02-02 21:13:00 86.047 kg [facility] BMI 2021-02-02 21:13:00 31.57 kg/m2 [facility] Systolic blood 2021-01-31 13:48:00 116 mm[Hg] Univer sity of pressure [facility] Diastolic blood 2021-01-31 13:48:00 73 mm[Hg] Unive rsity of pressure [facility] Heart rate 2021-01-31 13:48:00 83 /min [facility]i [facility] Body temperature 2021-01-31 13:48:00 37.61 Nae Univ ers[facility] Respiratory rate 2021-01-31 13:48:00 16 /min Univ ersity of [facility] Body height 2021-01-31 13:48:00 165.1 cm [facility] Body weight 2021-01-31 13:48:00 86.546 kg [facility] BMI 2021-01-31 13:48:00 31.75 kg/m2 [facility] Systolic blood 2021-01-17 15:24:00 111 mm[Hg] Univer sity of pressure [facility] Diastolic blood 2021-01-17 15:24:00 72 mm[Hg] Unive rsity of pressure [facility] Heart rate 2021-01-17 15:24:00 71 /min [facility] ty [facility] Body temperature 2021-01-17 15:24:00 36.78 Nae Univ ers[facility] Respiratory rate 2021-01-17 15:24:00 18 /min Univ ersity [facility] Body height 2021-01-17 15:24:00 165.1 cm [facility] Body weight 2021-01-17 15:24:00 87.091 kg [facility] BMI 2021-01-17 15:24:00 31.95 kg/m2 [facility] Systolic blood 2021-01-06 14:53:00 120 mm[Hg] Univer sity of pressure [facility] Diastolic blood 2021-01-06 14:53:00 75 mm[Hg] Unive rsity of pressure [facility] Heart rate 2021-01-06 14:53:00 90 /min [facility]i ty [facility] Body temperature 2021-01-06 14:53:00 36.61 Nae Univ ersity [facility] Respiratory rate 2021-01-06 14:53:00 16 /min Univ ersity [facility] Body height 2021-01-06 14:53:00 165.1 cm [facility] Body weight 2021-01-06 14:53:00 86.637 kg [facility] BMI 2021-01-06 14:53:00 31.78 kg/m2 [facility] Systolic blood 2020-12-15 20:49:00 129 mm[Hg] Univer sity of pressure [facility] Diastolic blood 2020-12-15 20:49:00 83 mm[Hg] Unive rsity of pressure [facility] Heart rate 2020-12-15 20:49:00 77 /min [facility] Body temperature 2020-12-15 20:49:00 36.67 Nae [facility] Respiratory rate 2020-12-15 20:49:00 18 /min Univ [facility] Body height 2020-12-15 20:49:00 165.1 cm [facility] Body weight 2020-12-15 20:49:00 87.091 kg [facility] BMI 2020-12-15 20:49:00 31.95 kg/m2 [facility] Systolic blood 2020-11-03 21:54:00 141 mm[Hg] Univer sity of pressure [facility] Diastolic blood 2020-11-03 21:54:00 88 mm[Hg] Unive rsity of pressure [facility] Heart rate 2020-11-03 21:54:00 84 /min [facility] Body temperature 2020-11-03 21:41:00 36.72 Nae [facility] Respiratory rate 2020-11-03 21:41:00 16 /min Univ [facility] Body height 2020-11-03 21:41:00 165.1 cm [facility] Body weight 2020-11-03 21:41:00 88.542 kg [facility] BMI 2020-11-03 21:41:00 32.48 kg/m2 [facility] Systolic blood 2020-10-07 17:16:00 134 mm[Hg] Univer sity of pressure [facility] Diastolic blood 2020-10-07 17:16:00 89 mm[Hg] Unive rsity of pressure [facility] Heart rate 2020-10-07 17:16:00 84 /min [facility] Body temperature 2020-10-07 17:16:00 36.67 Nae [facility] Respiratory rate 2020-10-07 17:16:00 18 /min Univ ers[facility] Body height 2020-10-07 17:16:00 165.1 cm [facility] Body weight 2020-10-07 17:16:00 84.823 kg [facility] BMI 2020-10-07 17:16:00 31.12 kg/m2 [facility] Systolic blood 2020-09-07 20:47:00 137 mm[Hg] Univer sity of pressure [facility] Diastolic blood 2020-09-07 20:47:00 93 mm[Hg] Unive rsity of pressure [facility] Heart rate 2020-09-07 20:38:00 74 /min [facility] Body temperature 2020-09-07 20:38:00 37 Nae [facility] Respiratory rate 2020-09-07 20:38:00 18 /min [facility] Body height 2020-09-07 20:38:00 162.6 cm [facility] Body weight 2020-09-07 20:38:00 84.369 kg [facility] BMI 2020-09-07 20:38:00 31.93 kg/m2 [facility] Procedures Procedure Date / Time Performing Clinician Source Performed AUTHORIZATION FOR RELEASE 2021-02-28 05:01:00 Doctor Unassigned, [facility] [place] NON-STRESS TEST 2021-02-14 23:05:[address] [facility] POCT URINALYSIS W/O 2021-02-14 21:24:[address] [facility] NON-STRESS TEST 2021-02-09 18:08:18 Molly Ghosh [facility] NON-STRESS TEST 2021-02-02 21:47:[address] [facility] POCT URINALYSIS 2021-02-02 21:17:00 Angie Monae [facility] NON-STRESS TEST 2021-01-31 14:53:[address] [facility] POCT TEST 2021-01-31 13:52:[address] [facility] POCT URINALYSIS W/O 2021-01-31 13:51:[address] [facility] ASSIGNMENT OF BENEFITS 2021-01-31 13:25:42 Doctor Unassigned, [facility] NON-STRESS TEST 2021-01-17 18:52:21 Chucho Soares [facility] POCT URINALYSIS W/O 2021-01-17 00:00:00 Chucho Soares [facility] SPECIFIC [place] [facility] [place] POCT URINALYSIS W/O 2021-01-06 14:55:00 Chucho Soares [facility] AUTHORIZATION TO RELEASE 2021-01-06 05:01:00 Doctor Monica, [facility] PHI TO [facility] ASSIGNMENT OF BENEFITS 2020-12-17 17:16:18 Doctor Monica, [facility] [place] TDAP VACCINE, >11 YRS, IM 2020-12-15 21:03:13 Chucho Soares [facility] POCT URINALYSIS W/O 2020-12-15 00:00:00 Chucho Soares [facility] [place] INSURANCE CORRESPONDENCE 2020-11-16 05:01:00 Doctor Monica, [facility] [place] POCT URINALYSIS W/O 2020-11-03 21:45:00 Chucho Soares [facility] POCT URINALYSIS W/O 2020-10-07 00:00:00 Chucho Soares [facility] SCANNED LAB RESULTS 2020-09-28 06:01:00 Doctor Monica [facility] Name [facility] [place] ASSIGNMENT OF BENEFITS 2020-09-10 22:12:42 Doctor Monica, [facility] GALV ONLY - VAGINAL 2020-09-07 21:27:00 Chucho Soares [facility] PATHOGENS BY NUCLEIC ACID Medica l Branch TESTING ADC / LCC - DRUG SCREEN 2020-09-07 21:26:00 Chucho Soares [facility] PAP SMEAR-LIQUID BASED-CP 2020-09-07 21:26:00 Chucho Soares [facility] FLU VACC ([id number]), 6+ 2020-09-07 21:25:44 Chucho Soares [facility] MONTHS, IM, QUAD Medical Branch Plan of Care Planned Activity Planned Date Details Comments Source Future Scheduled Test 2022 00:00:00 Screening for [facility] malignant neoplasm of cervix (procedure) [code = 180507132] Future Scheduled Test 2022-07-25 00:00:00 Screening for [facility] malignant neoplasm of cervix (procedure) [code = 877241511] Future Scheduled Test 2021-04-29 00:00:00 IMM Influenza [facility] Seasonal Apr to September (>/= 19 yrs) [code = IMM Influenza Seasonal Apr to September (>/= 19 yrs)] Future Scheduled Test 1995 00:00:00 COVID-19 Vaccine (1) [facility] [code = COVID-19 Vaccine (1)] Encounters Start End Encounter Admission Attending Care Care Encounter Source Date/Time Date/Time Type Type Clinicians Facility Department ID 2018-08-13 Inpatient [facility] [id number] H arris 00:00:[address] [facility] 2018-08-13 Inpatient [facility] [id number] H arris 00:00:[address] [facility] 2018-08-03 [facility] [id number] H arris 00:00:[address] [facility] 2017-06-15 Inpatient [facility] [id number] H arris 20:08:[address] [facility] 2017-06-14 Inpatient [facility] [id number] H arris 22:47:[address] [facility] 2021-07-12 2021-07-12 Outpatient Shahla QUINTERO [facility] [id number] Univers 13:30:00 13:30:00 KASSANDRA [id number] ity [facility] 2021-07-12 2021-07-12 [facility] [id number] Univers 13:30:00 13:30:00 [facility] 2021-07-05 Telephone Marci [facility] [id number] Univers 00:00:00 00:00:00 Kassandra MULTISPEC [id number] [facility] [id number] [facility] [id number] Jorge Morrow [address] [place] [address] [facility]IN[facility] 2021-04-28 2021-04-28 Outpatient GERARDO [facility] [id number] Univers 09:45:00 09:45:00 AYAN [id number] ity [facility] 2021-04-28 2021-04-28 Outpatient Shahla [facility] [id number] Univers 09:15:00 09:15:00 ity [facility] 2021-04-12 2021-04-12 Outpatient Shahla MONAE [facility] [id number] Univers 10:00:00 10:00:00 ANGIE [id number] [facility] 2021-04-12 2021-04-12 Outpatient Shahla MONAE [facility] [id number] Univers 10:00:00 10:00:00 OUMARJESSICA [facility] 2021-03-30 2021-03-30 Outpatient Shahla MONAE [facility] [id number] Univers 13:15:00 13:15:00 ANGIE [id number] jaz o [facility] 2021-03-30 2021-03-30 [facility] [id number] Univers 13:15:00 13:15:00 OUMARMORENANavya [facility] 2021-03-29 2021-03-29 [facility]ine [facility] [id number] Univers 14:33:01 15:44:53 Ayan Jansen SECURITY MESSENGER [id number] i ty of Visit REGIONAL [id number] Pete as MATERNAL [id number] Med ical & CHILD [address] [place] [address] 2021-03-29 2021-03-29 [facility] [id number] Univers 14:00:00 14:00:00 AYAN [id number] [facility] 2021-03-29 2021-03-29 Outpatient [facility] [id number] Univers 14:00:00 14:00:00 AYAN [facility] 2021-03-21 2021-03-21 Outpatient Shahla MONAE [facility] [id number] Univers 12:00:00 12:00:00 ANGIE [id number] [facility] 2021-03-21 2021-03-21 Outpatient Shahla MONAE [facility] [id number] Univers 12:00:00 12:00:00 ANGIE [facility] 2021-03-04 2021-03-04 Outpatient NATHAN [facility] [id number] Univers 07:00:00 07:00:00 BERTO [id number] ity of [facility] 2021-03-02 2021-03-02 Outpatient [facility] [id number] Univers 15:15:00 15:15:00 [id number] ity of [facility] 2021-03-01 2021-03-01 Telephone Dov [facility] [id number] Univers 00:00:00 00:00:00 Angie R SECURITY MESSENGER [id number] ity [facility] [id number] Pete as MATERNAL [phone] Med ical & CHILD [address] [place] [address] 2021-02-28 2021-02-28 Nurse Shari THOMSON [id number] Univers 00:00:00 00:00:00 Triage SHA Baker [id number] ity of [facility] [id number] Pete as [phone] [facility] 019 [place] 2021-02-28 2021-02-28 Orders Doctor BERTO [id number] Univers 00:00:00 00:00:00 Only Unassigned, SHA [id number] [facility] [id number] Pete as [id number] [facility] 009 [place] 2021-02-28 2021-02-28 Nurse Shari THOMSON [id number] 00:00:00 00:00:00 Triage SHA Baker [id number] [facility] [id number] 2021-02-21 2021-02-21 Outpatient R [facility] [id number] Univers 13:00:00 13:00:00 [id number] ity of [facility] 2021-02-21 2021-02-21 Outpatient R MARVIN REY [facility] [id number] Univers 13:00:00 13:00:00 MARVIN REY ity [facility] 2021-02-19 2021-02-19 Laboratory Lab, Adc Fam Pob I [facility] [id number]. [id number] Univers 11:30:38 11:50:38 Only Galo [facility] [id number] ity [facility] [id number] Pete as Professio [phone] Mt dical [address] Office [facility] 2021-02-19 2021-02-19 [facility] [id number] Univers 11:40:00 11:40:00 SEEMA ity [facility] 2021-02-19 2021-02-19 Outpatient R [facility] [id number] Univers 10:00:00 10:00:00 [id number] ity [facility] 2021-02-19 2021-02-19 Outpatient R [facility] [id number] Univers 10:00:00 10:00:00 ity [facility] 2021-02-16 2021-02-16 Outpatient R [facility] [id number] Univers 10:00:00 10:00:00 [id number] ity [facility] 2021-02-16 2021-02-16 Outpatient R [facility] [id number] Univers 10:00:00 10:00:00 ity [facility] 2021-02-16 2021-02-16 Telephone [facility] [id number] Univers 00:00:00 00:00:00 Molly Del Valle SECURITY MESSENGER [id number] it y of [facility] [id number] Pete as MATERNAL [phone] Med ical & CHILD [address] [place] [address] 2021-02-15 2021-02-15 [facility] [id number] Univers 16:00:40 16:25:22 Visit Kassandra WALTON [id number] ity of [facility] [id number] [place] [id number] [facility] AND [address] DIABETES [facility]INIC 2021-02-15 2021-02-15 [facility] [id number] Univers 16:00:00 16:00:00 KASSANDRA [id number] ity [facility] 2021-02-15 2021-02-15 Outpatient R MARCI [facility] [id number] Univers 16:00:00 16:00:00 KASSANDRA ity [facility] 2021-02-14 2021-02-14 Outpatient R DOV [facility] [id number] Univers 17:30:00 17:30:00 ANGIE [id number] ity o f [facility] 2021-02-14 2021-02-14 Outpatient R DOV [facility] [id number] Univers 17:30:00 17:30:00 SHAWNNDA ity o f [facility] 2021-02-14 2021-02-14 Routine Dov [facility] [id number] Univers 15:44:54 17:05:16 Aga R SECURITY MESSENGER [id number] ity of Visit REGIONAL [id number] Pete as MATERNAL [id number] Med ical & CHILD [address] [place] [address] 2021-02-14 2021-02-14 Routine Dov [facility] [id number] 15:44:54 17:05:16 Aga R SECURITY MESSENGER [id number] Visit REGIONAL [id number] MATERNAL [id number] & CHILD [address] [place] [address] 2021-02-09 2021-02-09 Routine Risk, Jof-Jkdqq-Hm/High [facility] 1. [id number] Univers 10:27:31 12:00:49 Molly Ghosh SECURITY MESSENGER [id number] ity of Visit REGIONAL [id number] Pete as MATERNAL [id number] [facility] ical & CHILD [address] [place] [address] 2021-02-09 2021-02-09 Outpatient R [facility] [id number] Univers 11:00:00 11:00:00 [id number] ity [facility] 2021-02-09 2021-02-09 Outpatient [facility] [id number] Univers 11:00:00 11:00:00 ity [facility] 2021-02-07 2021-02-07 Telemedici Faculty, Erik Rodriguez [facility] 1.2.840.114 [id number] Univers 09:00:00 09:15:00 ne Visit Marilou Stuart SECURITY MESSENGER 350.1 .13.10 ity of REGIONAL 4.2.7.2.686 [place] as MATERNAL [phone] [facility] ical & CHILD [address] [place] [address] 2021-02-07 2021-02-07 Outpatient [facility] [id number] Univers 08:45:00 08:45:00 [id number] ity of [facility] 2021-02-07 2021-02-07 Outpatient [facility] [id number] Univers 08:45:00 08:45:00 ity [facility] 2021-02-07 2021-02-07 Telephone Marci [facility] 1.2.395.264 [id number] Univers 00:00:00 00:00:00 Kassandra MULTISPEC 350.1.13.10 [phone] [address] DIABETES [facility] 2021-02-04 2021-02-04 Telephone Faye Cortez [facility] 1.2.840.114 [id number] Univers 00:00:00 00:00:00 MULTISPEC 350.1.13.10 [place] [phone] [address] [facility] 2021-02-02 2021-02-02 Routine Dov [facility] 1.2.840.114 [id number] Univers 15:57:48 16:50:06 Roshunda R SECURITY MESSENGER 350.1.13.10 ity of Visit REGIONAL 4.2.7.2.686 [place] as MATERNAL [phone] [facility] ical & CHILD [address] [place] [address] 2021-02-02 2021-02-02 Manager Mobility [facility] 1.2 .840.114 [id number] Univers 15:27:26 15:57:26 Visit Chucho Soares SECURITY MESSENGER 350.1.13.10 ity of Mónica Mc [facility] 4.2.7.2.686 [place] MATERNAL [phone] Med ical & CHILD 369 [facility] 2021-02-02 2021-02-02 Outpatient [facility] [id number] Univers 15:45:00 15:45:00 ity of [facility] 2021-02-02 2021-02-02 [facility]patient [facility] [id number] Univers 15:15:00 15:15:00 [id number] ity of [facility] 2021-01-31 2021-01-31 Initial Dov [facility] 1.2.840.114 [id number] Univers 08:54:12 10:11:12 Rosnadiyanda R SECURITY MESSENGER 350.1.13.10 ity of [facility] 4.2.7.2.686 [place] MATERNAL [phone] [facility] ical & CHILD 107 [facility] 2021-01-31 2021-01-31 Outpatient [facility] [id number] Univers 08:30:00 08:30:00 [id number] ity of [facility] 2021-01-31 2021-01-31 Outpatient [facility] [id number] Univers 08:30:00 08:30:00 ity of [facility] 2021-01-31 2021-01-31 Orders Doctor BERTO 1.2.840.114 [id number] Univers 00:00:00 00:00:00 Only Unassigned, SHA 350.1.13.10 ity of [place] [facility] 4.2.7.2.686 [place] as [phone] [address] 2021-01-27 2021-01-27 Telephone Chucho Soares [facility] 1.2.840.114 [id number] Univers 00:00:00 00:00:00 Janki Wells 350.1.13.10 i ty [place] [phone] Mt dical [facility] 2021-01-24 2021-01-24 Routine Room, [facility] 1.2.840.1 14 [id number] Univers 13:00:00 13:15:00 Fany Chuchodenia Wells 350.1.13.10 ity of [place] [phone] Mt dical nal [address] [place] [address] 2021-01-24 2021-01-24 Outpatient [facility] [id number] Univers 13:00:00 13:00:00 [id number] ity of [facility] 2021-01-24 2021-01-24 Outpatient [facility] [id number] Univers 13:00:00 13:00:00 ity of [facility] 2021-01-20 2021-01-20 [facility]patient [facility] [id number] Univers 13:00:00 13:00:00 [id number] ity of [facility] 2021-01-20 2021-01-20 Outpatient [facility] [id number] Univers 13:00:00 13:00:00 ity of [facility] 2021-01-17 2021-01-17 Routine Room, [facility] 1.2.840.1 14 [id number] Univers 10:11:23 11:44:18 FanyDandydenia Wells 350.1.13.10 ity of [place] [phone] Mt dicmo nal [address] [place] [address] 2021-01-17 2021-01-17 Outpatient [facility] [id number] Univers 10:00:00 10:00:00 [id number] ity of [facility] 2021-01-17 2021-01-17 Outpatient [facility] [id number] Univers 10:00:00 10:00:00 ity of [facility] 2021-01-12 2021-01-12 Case Lady [facility] 1.2.479.127 [id number] Univers 00:00:00 00:00:00 Management Juliet Wells 350.1.13.10 ity of [place] [phone] Mt dical nal [address] [place] [address] 2021-01-11 2021-01-11 Telephone Chucho Soares [facility] 1.2.840.114 [id number] Univers 00:00:00 00:00:00 Janki Wells 350.1.13.10 i ty of [place] [phone] Mt dical nal [address] [facility] 2021-01-07 2021-01-07 Outpatient [facility] [id number] Univers 10:45:00 10:45:00 [id number] ity of [facility] 2021-01-07 2021-01-07 Outpatient [facility] [id number] Univers 10:45:00 10:45:00 ity of [facility] 2021-01-06 2021-01-06 Manager Mobility Abimbola, Judi [facility] 1.2 .840.114 [id number] Univers 14:08:46 14:52:26 Visit Chucho Soares SECURITY MESSENGER 350.1.13.10 ity of [facility] 4.2.7.2.686 [place] as MATERNAL [phone] Med ical & CHILD [address] [place] [address] 2021-01-06 2021-01-06 Outpatient [facility] [id number] Univers 14:15:00 14:15:00 [id number] ity of [facility] 2021-01-06 2021-01-06 Outpatient [facility] [id number] Univers 14:15:00 14:15:00 ity of [facility] 2021-01-06 2021-01-06 Manager Mobility 2, Brianna Lab [facility] 1.2.840.114 [id number] Univers 11:07:07 11:22:07 Visit Chucho Soaers 350.1.13.10 ity of Juliet Narayanan 4.2.7.2.686 [place] Professio [phone] Me dical nal [address] [facility] 2021-01-06 2021-01-06 Routine Chucho Soares [facility] 1.2.827.861 [id number] Univers 09:37:15 10:43:42 Janki Wells 350.1.13.10 ity [place] [phone] Me dic[address] 2021-01-06 2021-01-06 Orders Doctor BERTO 1.2.840.114 [id number] Univers 00:00:00 00:00:00 Only Unassigned, SHA 350.1.13.[address] [facility] 4.2.7.2.686 [place] [phone] [address] 2021-01-05 2021-01-05 [facility]patient [facility] [id number] Univers 15:15:00 15:15:00 [id number] ity [facility] 2021-01-05 2021-01-05 Outpatient R CHUCHO SOARES [facility] [id number] Univers 13:00:00 13:00:00 ity [facility] 2020-12-22 2020-12-22 Outpatient [facility] [id number] -[id number] Univers 14:30:00 14:30:00 [id number] ity [facility] 2020-12-22 2020-12-22 Outpatient [facility] [id number] Univers 14:30:00 14:30:00 ity of [facility] 2020-12-21 2020-12-21 Outpatient [facility] [id number] Univers 11:00:00 11:00:00 [id number] ity [facility] 2020-12-21 2020-12-21 Outpatient [facility] [id number] Univers 11:00:00 11:00:00 ity [facility] 2020-12-20 2020-12-20 [facility] ..[id number] Univers 00:00:00 00:00:00 Management Juliet Wells 350.1.13.10 ity of [place] [phone] Mt dic[address] 2020-12-17 2020-12-17 Manager Mobility Brianna Dalal Lab Main [facility] 1.2.8 40.114 [id number] Univers 12:17:06 12:32:06 Visit Chucho Soares 350.1.13.10 ity of [place] [phone] Me dical nal [address] [facility] 2020-12-17 2020-12-17 Outpatient [facility] [id number] Univers 12:30:00 12:30:00 [id number] ity of [facility] 2020-12-17 2020-12-17 Outpatient R CHUCHO SOARES [facility] [id number] Univers 12:30:00 12:30:00 ity of [facility] 2020-12-17 2020-12-17 Orders Doctor BERTO 1.2.840.114 [id number] Univers 00:00:00 00:00:00 Only Unassigned, SHA 350.1.13.10 ity of [place] [facility] 4.2.7.2.686 [place] as [phone] [address] 2020-12-15 2020-12-15 Routine Chucho Soares [facility] 1.2.946.952 [id number] Univers 15:41:17 15:56:17 Janki Wells 350.1.13.10 ity of [place] [phone] Me dical nal [address] [facility] 2020-12-15 2020-12-15 Outpatient R CHUCHO SOARES [facility] [id number] Univers 15:45:00 15:45:00 [id number] ity of [facility] 2020-12-15 2020-12-15 Outpatient R CHUCHO SOARES [facility] [id number] Univers 15:45:00 15:45:00 ity of [facility] 2020-12-14 2020-12-14 Outpatient P [facility] [id number] Univers 10:00:00 10:00:00 [id number] ity of [facility] 2020-12-14 2020-12-14 Outpatient P [facility] [id number] Univers 10:00:00 10:00:00 ity of [facility] 2020-12-07 2020-12-07 Outpatient [facility] [id number] Univers 15:00:00 15:00:00 [id number] ity of [facility] 2020-12-07 2020-12-07 Outpatient P [facility] [id number] Univers 15:00:00 15:00:00 ity of [facility] 2020-12-01 2020-12-01 Outpatient R FANY CHUCHO [facility] [id number] Univers 15:00:00 15:00:00 [id number] ity of [facility] 2020-12-01 2020-12-01 Outpatient R SOARESDANDYEN [facility] [id number] Univers 15:00:00 15:00:00 ity [facility] 2020-11-16 2020-11-16 Orders Doctor BERTO 1.2.840.114 [id number] Univers 00:00:00 00:00:00 Only Unassigned, SHA 350.1.13.[address] [facility] 4.2.7.2.686 [place] [phone] [address] 2020-11-15 2020-11-15 Refill Fany Chucho [facility] 1.2.643.649 [id number] Univers 00:00:00 00:00:00 Janki Wells 350.1.13.10 i ty of [place] [phone] Mt dical nal [address] [place] [address] 2020-11-10 2020-11-10 Outpatient [facility] [id number] Univers 15:15:00 15:15:00 [id number] ity of [facility] 2020-11-10 2020-11-10 Outpatient P [facility] [id number] Univers 15:15:00 15:15:00 ity of [facility] 2020-11-03 2020-11-03 Routine Fany Chucho [facility] 1.2.303.363 [id number] Univers 16:21:39 17:14:48 Janki Wells 350.1.13.10 ity of [place] 4[place].2.[place] [phone] Mt dical nal [address] [place] [address] 2020-11-03 2020-11-03 Manager Mobility Katlin, Brianna Lab Main [facility] 1.2.8 40.114 [id number] Univers 16:10:19 16:25:19 Visit Chucho Soares 350.1.13.10 ity of [place] [phone] Mt dical [address] 2020-11-03 2020-11-03 Outpatient R CHUCHO SOARES [facility] [id number] Univers 16:15:00 16:15:00 [id number] ity [facility] 2020-11-03 2020-11-03 Outpatient R FANY [facility] [id number] Univers 16:15:00 16:15:00 ity [facility] 2020-10-26 2020-10-26 Outpatient R [facility] [id number] Univers 11:00:00 11:00:00 [id number] ity [facility] 2020-10-26 2020-10-26 Outpatient R FANY [facility] [id number] Univers 11:00:00 11:00:00 ity [facility] 2020-10-22 2020-10-22 Outpatient R [facility] [id number] Univers 11:15:00 11:15:00 [id number] ity [facility] 2020-10-21 2020-10-21 Manager Mobility [facility] 1.2 .840.114 [id number] Univers 09:37:46 10:52:46 Visit Marilou Stuart SECURITY MESSENGER 350.1. 13.10 ity [facility] 4.2.7.2.686 [place] MATERNAL [phone] Med ical & CHILD [address] [place] [address] 2020-10-21 2020-10-21 Outpatient [facility] [id number] Univers 09:45:00 09:45:00 [id number] ity [facility] 2020-10-21 2020-10-21 Outpatient P [facility] [id number] Univers 09:45:00 09:45:00 ity [facility] 2020-10-13 2020-10-13 Telephone Chucho Soares [facility] 1.2.840.114 [id number] Univers 00:00:00 00:00:00 Cam Priscilla 350.1.13.10 i ty of [place] [phone] Me dical nal [address] [facility] 2020-10-08 2020-10-08 Manager Mobility 2, Adc Lab [facility] 1.2.840.114 [id number] Univers 13:17:07 13:32:07 Visit Chucho Soares Priscilla 350.1.13.10 ity of [place].2.[place] [phone] Me dical nal [address] [facility] 2020-10-08 2020-10-08 Outpatient [facility] [id number] Univers 11:30:00 11:30:00 [id number] ity [facility] 2020-10-08 2020-10-08 Outpatient R FANY CHUCHO [facility] [id number] Univers 11:30:00 11:30:00 ity of [facility] 2020-10-07 2020-10-07 Routine Dandy Soaresen [facility] 1.2.515.077 [id number] Univers 10:45:31 12:03:45 Janki Wells 350.1.13.10 ity of [place] 4[place].2.[place] [phone] Mt dical nal [address] [facility] 2020-10-07 2020-10-07 Outpatient R CHUCHO SOARES [facility] [id number] Univers 11:00:00 11:00:00 [id number] ity [facility] 2020-10-07 2020-10-07 Outpatient R CHUCHO SOARES [facility] [id number] Univers 11:00:00 11:00:00 ity [facility] 2020-10-05 2020-10-05 Outpatient CHUCHO SOARES [facility] [id number] Univers 15:00:00 15:00:00 [id number] ity [facility] 2020-09-28 2020-09-28 Outpatient R [facility] [id number] Univers 12:30:00 12:30:00 [id number] ity [facility] 2020-09-28 2020-09-28 Outpatient R FANY [facility] [id number] Univers 12:30:00 12:30:00 ity [facility] 2020-09-28 2020-09-28 Manager Mobility Katlin, Adc Lab Main [facility] 1.2.8 40.114 [id number] Univers 11:26:53 11:41:53 Visit SoaresChucho Janki Wells 350.1.13.10 ity of [place].2.[place] [phone] Mt dical [address] 2020-09-28 2020-09-28 Orders Doctor BERTO 1.2.840.114 [id number] Univers 00:00:00 00:00:00 Only Unassigned, SHA 350.1.13.10 ity of [place] [facility] 4.2.7.2.686 [place] as [phone] [address] 2020-09-10 2020-09-10 Manager Mobility Katlin, Adc Lab Main [facility] 1.2.8 40.114 [id number] Univers 16:14:30 16:29:30 Visit Fany Chucho Wells 350.1.13.10 ity of [place] 4[place].2.[place] [phone] Mt dic[address] 2020-09-10 2020-09-10 Outpatient R [facility] [id number] Univers 16:15:00 16:15:00 [id number] ity of [facility] 2020-09-10 2020-09-10 Outpatient R SOARESCHUCHO [facility] [id number] Univers 16:15:00 16:15:00 ity of [facility] 2020-09-10 2020-09-10 Orders Doctor THOMSON 1.2.840.114 [id number] Univers 00:00:00 00:00:00 Only Unassigned, SHA 350.1.13.10 [facility] 4.2.7.2.686 [place] as [phone] [address] 2020-09-09 2020-09-09 Outpatient R [facility] [id number] Univers 11:30:00 11:30:00 [id number] ity [facility] 2020-09-09 2020-09-09 Outpatient R [facility] [id number] Univers 11:30:00 11:30:00 ity of [facility] 2020-09-09 2020-09-09 Case [facility] 1.2.431.751 [id number] Univers 00:00:00 00:00:00 Management Juliet Priscilla 350.1.13.10 ity of [place] [phone] Mt dical nal [address] [place] [address] 2020-09-09 2020-09-09 Telephone Chucho Soares [facility] 1.2.840.114 [id number] Univers 00:00:00 00:00:00 Cam Priscilla 350.1.13.10 i ty of [place] 4[place]7.2.[place] [phone] Mt dical nal [address] [place] [address] 2020-09-07 2020-09-07 Initial Fany [facility] 1.2.262.683 [id number] Univers 14:27:00 16:13:05 Janki Wells 350.1.13.10 ity of [place] 4[place]2.[place] [phone] Mt dical nal [address] [place] [address] 2020-09-07 2020-09-07 Outpatient R CHUCHO SOARES [facility] [id number] [facility] 14:00:00 14:00:00 ity of [facility] 2019-07-16 2019-07-16 Outpatient [facility] [id number] [place] 00:00:00 00:00:00 Health 2019-07-09 2019-07-09 Outpatient [facility] [id number] [place] 00:00:00 00:00:[address] [facility] 2019-07-09 2019-07-09 Outpatient [facility] [id number] [place] 00:00:00 00:00:00 Health 2019-07-02 2019-07-02 Outpatient [facility] [id number] [place] 14:55:58 14:55:58 Health 2019-06-23 2019-06-23 Outpatient [facility] [id number] [place] 00:00:00 00:00:00 Health 2019-06-17 2019-06-17 Outpatient [facility] [id number] [place] 16:12:47 16:12:47 Health 2019-06-17 2019-06-17 Outpatient [facility] [id number] [place] 14:58:36 14:58:[address] [facility] 2019-06-17 2019-06-17 Outpatient [facility] [id number] [place] 00:00:00 00:00:[address] [facility] 2019-06-17 2019-06-17 Outpatient [facility] [id number] [place] 00:00:00 00:00:[address] [facility] 2019-06-02 2019-06-02 Outpatient [facility] [id number] [place] 00:00:00 00:00:[address] [facility] 2019-05-27 2019-05-27 Outpatient [facility] [id number] [place] 15:50:59 15:50:[address] [facility] 2019-05-06 2019-05-06 Outpatient [facility] [id number] [place] 00:00:00 00:00:[address] [facility] 2019-05-01 2019-05-01 Outpatient [facility] [id number] [place] 13:57:04 13:57:[address] [facility] 2019-05-01 2019-05-01 Outpatient [facility] [id number] [place] 00:00:00 00:00:[address] [facility] 2019-05-01 2019-05-01 Outpatient [facility] [id number] [place] 00:00:00 00:00:[address] [facility] 2019-05-01 2019-05-01 Outpatient [facility] [id number] [place] 00:00:00 00:00:[address] [facility] 2019-04-30 2019-04-30 Outpatient [facility] [id number] [place] 00:00:00 00:00:[address] [facility] 2019-04-23 2019-04-23 Outpatient [facility] [id number] [place] 11:57:19 11:57:[address] [facility] 2019-04-16 2019-04-16 Outpatient [facility] [id number] [place] 00:00:00 00:00:[address] [facility] 2019-03-13 2019-03-13 Outpatient [facility] [id number] [place] 00:00:00 00:00:[address] [facility] 2019-03-12 2019-03-12 Outpatient [facility] [id number] [place] 00:00:00 00:00:[address] [facility] 2019-03-07 2019-03-07 Outpatient [facility] [id number] [place] 13:42:26 13:42:[address] [facility] 2019-02-28 2019-02-28 Outpatient [facility] [id number] [place] 12:44:17 12:44:[address] [facility] 2019-02-28 2019-02-28 Outpatient [facility] [id number] [place] 00:00:00 00:00:[address] [facility] 2019-02-12 2019-02-12 Emergency [facility] [id number] [place] 10:34:17 10:34:[address] [facility] 2018-11-06 2018-11-06 Outpatient [facility] [id number] [place] 00:00:00 00:00:[address] [facility] 2018-09-30 2018-09-30 Outpatient [facility] [id number] [place] 00:00:00 00:00:[address] [facility] 2018-09-30 2018-09-30 Outpatient [facility] [id number] [place] 00:00:00 00:00:[address] [facility] 2018-09-25 2018-09-25 Outpatient [facility] [id number] [place] 00:00:00 00:00:[address] [facility] 2018-09-24 2018-09-24 Outpatient [facility] [id number] [place] 00:00:00 00:00:[address] [facility] 2018-08-13 2018-08-13 Inpatient [facility] [id number] [place] 14:09:33 14:09:[address] [facility] 2018-08-03 2018-08-03 Outpatient [facility] [id number] [place] 08:30:48 08:30:[address] [facility] 2018-08-02 2018-08-02 Inpatient [facility] MED [id number] [place] 18:20:21 18:20:[address] [facility] 2018-08-02 2018-08-02 Outpatient [facility] [id number] [place] 10:46:56 10:46:[address] [facility] 2018 2018 Outpatient [facility] [id number] [place] 09:43:06 09:43:[address] [facility] 2018-07-19 2018-07-19 Outpatient [facility] [id number] [place] 08:58:18 08:58:[address] [facility] 2018-07-15 2018-07-15 Outpatient [facility] [id number] [place] 14:56:06 14:56:[address] [facility] 2018-07-08 2018-07-08 Outpatient [facility] [id number] [place] 00:00:00 00:00:[address] [facility] 2018-06-24 2018-06-24 Outpatient [facility] [id number] [place] 13:29:46 13:29:[address] [facility] 2018-06-24 2018-06-24 Outpatient [facility] [id number] [place] 00:00:00 00:00:[address] [facility] 2018-05-22 2018-05-22 Outpatient [facility] [id number] [place] 00:00:00 00:00:[address] [facility] 2018-05-21 2018-05-21 Outpatient [facility] [id number] [place] 12:01:37 12:01:[address] [facility] 2018-05-21 2018-05-21 Outpatient [facility] [id number] [place] 11:04:03 11:04:[address] [facility] 2018-05-06 2018-05-06 Outpatient [facility] [id number] [place] 12:58:42 12:58:[address] [facility] 2018-05-06 2018-05-06 Outpatient [facility] [id number] [place] 00:00:00 00:00:[address] [facility] 2018-04-22 2018-04-22 Outpatient [facility] [id number] [place] 00:00:00 00:00:[address] [facility] 2018-04-22 2018-04-22 Outpatient [facility] [id number] [place] 00:00:00 00:00:[address] [facility] 2018-04-04 2018-04-04 Outpatient [facility] [id number] [place] 10:25:29 10:25:[address] [facility] 2018-03-29 2018-03-29 Outpatient [facility] [id number] [place] 00:00:00 00:00:[address] [facility] 2018-03-29 2018-03-29 Outpatient [facility] [id number] [place] 00:00:00 00:00:[address] [facility] 2018-03-27 2018-03-27 Outpatient [facility] [id number] [place] 00:00:00 00:00:[address] [facility] 2018-03-18 2018-03-18 Outpatient [facility] [id number] [place] 14:00:21 14:00:[address] [facility] 2018-03-14 2018-03-14 Outpatient [facility] [id number] [place] 09:21:05 09:21:[address] [facility] 2017 2017 Outpatient [facility] [id number] [place] 15:16:09 15:16:[address] [facility] 2017-06-18 2017-06-18 Outpatient [facility] [id number] [place] 00:00:00 00:00:[address] [facility] 2017-06-13 2017-06-13 Inpatient [facility] [id number] [place] 13:16:41 13:16:[address] [facility] 2017-06-13 2017-06-13 Outpatient [facility] [id number] [place] 11:15:24 11:15:[address] [facility] 2017-06-13 2017-06-13 Outpatient [facility] [id number] [place] 00:00:00 00:00:[address] [facility] 2017-06-13 2017-06-13 Outpatient [facility] [id number] [place] 00:00:00 00:00:[address] [facility] 2017-06-13 2017-06-13 Outpatient [facility] [id number] [place] 00:00:00 00:00:[address] [facility] 2017-06-12 2017-06-12 Outpatient [facility] [id number] [place] 00:00:00 00:00:[address] [facility] 2017-06-12 2017-06-12 [facility] [facility] [id number] [place] 00:00:00 00:00:[address] [facility] 2017-06-05 2017-06-05 Outpatient [facility] [id number] [place] 11:49:40 11:49:[address] [facility] 2017-06-05 2017-06-05 Outpatient [facility] [id number] [place] 09:57:27 09:57:[address] [facility] 2017-06-04 2017-06-04 Outpatient [facility] [id number] [place] 00:00:00 00:00:[address] [facility] 2017-05-28 2017-05-28 Outpatient [facility] [id number] [place] 16:15:59 16:15:[address] [facility] 2017-05-28 2017-05-28 Outpatient [facility] [id number] [place] 14:56:12 14:56:[address] [facility] 2017-05-28 2017-05-28 Outpatient [facility] [id number] [place] 12:06:27 12:06:[address] [facility] 2017-05-21 2017-05-21 Outpatient [facility] [id number] [place] 00:00:00 00:00:[address] [facility] 2017-05-21 2017-05-21 Outpatient [facility] [id number] [place] 00:00:00 00:00:[address] [facility] 2017-05-14 2017-05-14 Outpatient [facility] [id number] [place] 17:34:44 17:34:[address] [facility] 2017-05-14 2017-05-14 Outpatient [facility] [id number] [place] 15:19:09 15:19:[address] [facility] 2017-05-14 2017-05-14 Outpatient [facility] [id number] [place] 00:00:00 00:00:[address] [facility] 2017-05-14 2017-05-14 Outpatient [facility] [id number] [place] 00:00:00 00:00:[address] [facility] 2017-05-14 2017-05-14 Outpatient [facility] [id number] [place] 00:00:00 00:00:[address] [facility] 2017-05-07 2017-05-07 Outpatient [facility] [id number] [place] 10:33:58 10:33:58 Health 2017-04-30 2017-04-30 Outpatient [facility] [id number] [place] 14:01:44 14:01:44 Health 2017-04-30 2017-04-30 Outpatient [facility] [id number] [place] 11:57:33 11:57:33 Health 2017-04-30 2017-04-30 Outpatient [facility] [id number] [place] 10:46:51 10:46:51 Health 2017-04-30 2017-04-30 Outpatient [facility] [id number] [place] 00:00:00 00:00:00 Health 2017-04-16 2017-04-16 Outpatient [facility] [id number] [place] 13:41:48 13:41:48 Health 2017-04-05 2017-04-05 Outpatient [facility] [id number] [place] 09:49:53 09:49:53 Health 2017-03-19 2017-03-19 Outpatient [facility] [id number] [place] 13:30:03 13:30:03 Health 2017-03-19 2017-03-19 Outpatient [facility] [id number] [place] 11:48:14 11:48:[address] [facility] 2017-03-19 2017-03-19 Outpatient [facility] [id number] [place] 00:00:00 00:00:[address] [facility] 2017-03-05 2017-03-05 Outpatient [facility] [id number] [place] 11:57:40 11:57:40 Health 2017-02-19 2017-02-19 Outpatient [facility] [id number] [place] 15:20:43 15:20:43 Health 2017-02-02 2017-02-02 Outpatient [facility] [id number] [place] 12:36:25 12:36:25 Health 2017-01-22 2017-01-22 Outpatient [facility] [id number] [place] 11:44:16 11:44:16 Health 2017-01-22 2017-01-22 Outpatient [facility] [id number] [place] 10:25:12 10:25:12 Health 2017-01-03 2017-01-03 Outpatient [facility] [id number] [place] 11:28:23 11:28:23 Health 2016-12-23 2016-12-23 Outpatient [facility] [id number] [place] 14:59:52 14:59:52 Health Results Test Description Test Time Test Comments Results Result Sourc e Comments NON-STRESS 2021-02-14 Reactive and Univer sity of TEST 23:10:11 Reassuring [facility] POCT URINALYSIS W/O SPECIFIC GRAVITY 2021-02-14 21:25:00 Test Item Value Reference Range Interpretation Comme nts POCT PH U (test code = 3254) . 5-8 POCT U LEUK EST (test code = 3263) . Negative - Negative POCT U NIT (test code = 3262) . Negative - Negative POCT U PROT (test code = 3259) 1+ Negative - Negative POCT U GLU (test code = 3256) neg Negative - Negative POCT U KETONE (test code = 3258) . Negative - Negative POCT U BLD (test code = 3257) . Negative - Negative Lab Interpretation (test code = 58833-2) [facility] [id number] 21:25:00 Test Item Value Reference Range Interpretation Comments POCT PH U (test code = 3254) . 5-8 POCT U LEUK EST (test code = 3263) . Negative - Negative POCT U NIT (test code = 3262) . Negative - Negative POCT U PROT (test code = 3259) 1+ Negative - Negative POCT U GLU (test code = 3256) neg Negative - Negative POCT U KETONE (test code = 3258) . Negative - Negative POCT U BLD (test code = 3257) . Negative - Negative Lab Interpretation (test code = Normal 03275-0) [facility] [id number] 18:09:07NST reactive and reassuring, irregular [facility] [id number] 21:48:11Reactive and ReassuringUn[facility] StationPO[facility] URIN[facility]YSIS W SPECIFIC [id number] 21:17:00 Test Item Value Reference Range Interpretation Comments POCT U SP GRAV (test code = 3255) . 1.005-1.025 POCT PH U (test code = 3254) . 5-8 POCT U LEUK EST (test code = 3263) . Negative - Negative POCT U NIT (test code = 3262) . Negative - Negative POCT U PROT (test code = 3259) trace Negative - Negative POCT U GLU (test code = 3256) neg Negative - Negative POCT U KETONE (test code = 3258) . Negative - Negative POCT U UROBILI (test code = 3260) . 0.2-1 POCT U BILI (test code = 3261) . Negative - Negative POCT U BLD (test code = 3257) . Negative - Negative POCT U COLOR (test code = 3266) POCT U APPEAR (test code = 3267) Lab Interpretation (test code = Normal 18043-3) [facility] NON-STRESS [id number] 14:53:40NST reactive and Reassuring.[facility] NON-STRESS TEST 2021-01-31 14:53:40NST reactive and Reassuring.[facility] [id number] 13:53:00 Test Item Value Reference Range Interpretation Comments POCT PREG (test code = 1605) Positive On board controls acceptable with C Yes Line (test code = 3574) POCT PREG LOT # (test code = 3575) POCT PREG TEST DATE (test code = 3576) Lab Interpretation (test code = Normal 47205-6) [facility] [id number] 13:53:00 Test Item Value Reference Range Interpretation Comments POCT PREG (test code = 1605) Positive On board controls acceptable with C Yes Line (test code = 3574) POCT PREG LOT # (test code = 3575) POCT PREG TEST DATE (test code = 3576) Lab Interpretation (test code = Normal 71650-6) [facility] URINALYSIS W/O SPECIFIC [id number] 13:52:00 Test Item Value Reference Range Interpretation Comments POCT PH U (test code = 3254) 6 mg/dl 5-8 POCT U LEUK EST (test code = trace Negative - Negative 3263) POCT U NIT (test code = 3262) neg Negative - Negative POCT U PROT (test code = 3259) trace Negative - Negative POCT U GLU (test code = 3256) neg Negative - Negative POCT U KETONE (test code = 3258) neg Negative - Negative POCT U BLD (test code = 3257) neg Negative - Negative Lab Interpretation (test code = Normal 09327-8) [facility] SPECIFIC [id number] 13:52:00 Test Item Value Reference Range Interpretation Comments POCT PH U (test code = 3254) 6 mg/dl 5-8 POCT U LEUK EST (test code = trace Negative - Negative 3263) POCT U NIT (test code = 3262) neg Negative - Negative POCT U PROT (test code = 3259) trace Negative - Negative POCT U GLU (test code = 3256) neg Negative - Negative POCT U KETONE (test code = 3258) neg Negative - Negative POCT U BLD (test code = 3257) neg Negative - Negative Lab Interpretation (test code = Normal 82211-0) [facility] [id number] 18:52:51 Reactive and reassuring [place] quiescent Chucho Soares MD ?01/17/2021 ?1:52 PM [facility] URINALYSIS W/O SPECIFIC [id number] 15:26:00 Test Item Value Reference Range Interpretation Comments POCT PH U (test code = 3254) N/A 5-8 POCT U LEUK EST (test code = N/A Negative - Negative 3263) POCT U NIT (test code = 3262) N/A Negative - Negative POCT U PROT (test code = 3259) Negative Negative - Negative POCT U GLU (test code = 3256) Negative Negative - Negative POCT U KETONE (test code = 3258) N/A Negative - Negative POCT U BLD (test code = 3257) N/A Negative - Negative [facility] [id number] 14:55:00 Test Item Value Reference Range Interpretation Comments POCT PH U (test code = 3254) n/a 5-8 POCT U LEUK EST (test code = 3263) n/a Negative - Negative POCT U NIT (test code = 3262) n/a Negative - Negative POCT U PROT (test code = 3259) neg Negative - Negative POCT U GLU (test code = 3256) neg Negative - Negative POCT U KETONE (test code = 3258) n/a Negative - Negative POCT U BLD (test code = 3257) n/a Negative - Negative [facility] URINALYSIS W/O SPECIFIC [id number] 20:52:00 Test Item Value Reference Range Interpretation Comments POCT PH U (test code = 3254) n/a 5-8 POCT U LEUK EST (test code = 3263) n/a Negative - Negative POCT U NIT (test code = 3262) n/a Negative - Negative POCT U PROT (test code = 3259) neg Negative - Negative POCT U GLU (test code = 3256) neg Negative - Negative POCT U KETONE (test code = 3258) n/a Negative - Negative POCT U BLD (test code = 3257) n/a Negative - Negative Lab Interpretation (test code = Normal 14834-8) [facility] URINALYSIS W/O SPECIFIC [id number] 21:45:00 Test Item Value Reference Range Interpretation Comments POCT PH U (test code = 3254) n/a 5-8 POCT U LEUK EST (test code = 3263) n/a Negative - Negative POCT U NIT (test code = 3262) n/a Negative - Negative POCT U PROT (test code = 3259) neg Negative - Negative POCT U GLU (test code = 3256) neg Negative - Negative POCT U KETONE (test code = 3258) n/a Negative - Negative POCT U BLD (test code = 3257) n/a Negative - Negative [facility] URINALYSIS W/O SPECIFIC [id number] 20:32:00 Test Item Value Reference Range Interpretation Comments POCT PH U (test code = 3254) N/A 5-8 POCT U LEUK EST (test code = N/A Negative - Negative 3263) POCT U NIT (test code = 3262) N/A Negative - Negative POCT U PROT (test code = 3259) Negative Negative - Negative POCT U GLU (test code = 3256) Negative Negative - Negative POCT U KETONE (test code = 3258) N/A Negative - Negative POCT U BLD (test code = 3257) N/A Negative - Negative [facility] URINALYSIS W/O SPECIFIC [id number] 20:32:00 Test Item Value Reference Range Interpretation Comments POCT PH U (test code = 3254) N/A 5-8 POCT U LEUK EST (test code = N/A Negative - Negative 3263) POCT U NIT (test code = 3262) N/A Negative - Negative POCT U PROT (test code = 3259) Negative Negative - Negative POCT U GLU (test code = 3256) Negative Negative - Negative POCT U KETONE (test code = 3258) N/A Negative - Negative POCT U BLD (test code = 3257) N/A Negative - Negative [facility] URINALYSIS W/O SPECIFIC [id number] 20:32:00 Test Item Value Reference Range Interpretation Comments POCT PH U (test code = 3254) N/A 5-8 POCT U LEUK EST (test code = N/A Negative - Negative 3263) POCT U NIT (test code = 3262) N/A Negative - Negative POCT U PROT (test code = 3259) Negative Negative - Negative POCT U GLU (test code = 3256) Negative Negative - Negative POCT U KETONE (test code = 3258) N/A Negative - Negative POCT U BLD (test code = 3257) N/A Negative - Negative [facility] URINALYSIS W/O SPECIFIC [id number] 20:32:00 Test Item Value Reference Range Interpretation Comments POCT PH U (test code = 3254) N/A 5-8 POCT U LEUK EST (test code = N/A Negative - Negative 3263) POCT U NIT (test code = 3262) N/A Negative - Negative POCT U PROT (test code = 3259) Negative Negative - Negative POCT U GLU (test code = 3256) Negative Negative - Negative POCT U KETONE (test code = 3258) N/A Negative - Negative POCT U BLD (test code = 3257) N/A Negative - Negative [facility] [id number] 20:32:00 Test Item Value Reference Range Interpretation Comments POCT PH U (test code = 3254) N/A 5-8 POCT U LEUK EST (test code = N/A Negative - Negative 3263) POCT U NIT (test code = 3262) N/A Negative - Negative POCT U PROT (test code = 3259) Negative Negative - Negative POCT U GLU (test code = 3256) Negative Negative - Negative POCT U KETONE (test code = 3258) N/A Negative - Negative POCT U BLD (test code = 3257) N/A Negative - Negative [facility] - VAGINAL PATHOGENS BY NUCLEIC ACID [id number] 22:48:00 Test Item Value Reference Range Interpretation Comments Trichomonas vaginalis Negative Negative (test code = 5279910402) Italia species (test Positive Negative A code = 9417598676) Italia glabrata (test Negative Negative code = 51985-5) Bacterial Vaginosis Negative Negative (test code = 66904-1) MANAS (test code = MANAS) Reliable results are dependent on adequate specimen collection. This test detects Trichomonas vaginalis, Italia glabrata, and other Italia species (C. albicans, C. parapsilosis, C. dubliniensis, and C. tropicalis). ?The assay does not differentiate among organisms in the Italia species group. The Bacterial Vaginosis result is determined based on relative amounts of the following target organisms: Lactobacillus (L. gasseri, L. crispatus, and L. jensenii), Gardnerella vaginalis, and Atopobium vaginae. ?A single qualitative result is generated. ?This assay does not report individual organisms. A positive result obtained from a patient after therapeutic treatment cannot be interpreted as indicating the presence of viable organisms. ?For patients on whom a false positive result may have adverse psychosocial impact, retesting is advised. Indeterminate: Unable to generate a valid test result on this specimen. ?Please submit a new specimen for repeat testing if clinically indicated. This testing has not been validated for medico-legal purposes (sexual abuse in melo-pubertal and pre-pubertal children, sexual assault, and legal cases). Results from this testing should be interpreted in conjunction with other laboratory and clinical data available to the clinician. Lab Interpretation Abnormal (test code = 89315-6) [facility] [id number] 01:12:00 Test Item Value Reference Range Interpretation Comments BENZO U (test code = Negative Negative 8336584174) DOMINIC U (test code = Negative Negative 8115562652) AMPHET (test code = Negative Negative 4661588327) THC (test code = Negative Negative 8087845929) METHADONE (test code = Negative Negative 2897861472) Meth U (test code = Negative Negative 2411440546) OPIATES (test code = Negative Negative 7107435065) Cocaine Metabolite (test Negative Negative code = 9655632298) PROPOXY (test code = Negative Negative 3237418469) Tric U (test code = Negative Negative 4253645299) PCP (test code = Negative Negative 0552300257) OXYCOD (test code = Negative Negative 8744496467) MANAS (test code = MANAS) Urine Drug Cutoff Ranges Benzodiazepines: ? ? 150 ng/mLBarbiturates: ?200 ng/mLAmphetamine: ? 500 ng/mLCannabinoids: ?50 ?ng/mLMethadone: ? 200 ng/mLMethamphetamine: ? ? 500 ng/mL Opiates: ? 100 ng/mL or 2000 ng/mLCocaine: ? 150 ng/mLPropoxyphene: ?300 ng/mLTricyclics: ?300 ng/mLOxycodone: ? 100 ng/mLPCP: ? 25 ?ng/mL The results are to be used only for medical (i.e., treatment) purposes. Unconfirmed screening results must not be used for non-medical purposes (e.g., employment testing, legal testing). Lab Interpretation (test Normal code = 92416-4) [facility]
[2022-01-12 11:27] LABS: Urine Blood Negative (Negative); Urine Glucose Negative (Negative); Urine Protein Trace (Negative); Urine Specific Gravity 1.015 (1.005-1.030)
[2022-01-12 11:34] LABS: Urine Specific Gravity/Preg 1.015 (1.005-1.030)
--- NOTE | 2022-01-12 11:41 | ER ---
Nurse's Notes [facility] Name: Rachel Dewey Age: 36 yrs Sex: Female : 1985 Arrival Date: 01/12/2022 Time: 10:56 Bed 11 Private MD: Diagnosis: state, incidental Presentation: 01/12 11:00 Chief complaint: Patient states: needs a test, LMP was December 03, 2021. pt denies iw pain or cramping . Coronavirus screen: At this time, the client does not indicate any symptoms associated with coronavirus-19. Ebola Screen: Patient negative for fever greater than or equal to 101.5 degrees Fahrenheit, and additional compatible Ebola Virus Disease symptoms Patient denies exposure to infectious person. Patient denies travel to an Ebola-affected area in the 21 days before illness onset. No symptoms or risks identified at this time. Initial Sepsis Screen: Does the patient meet any 2 criteria? No. Patient's initial sepsis screen is negative. Does the patient have a suspected source of infection? No. Patient's initial sepsis screen is negative. Risk Assessment: Do you want to hurt yourself or someone else? Patient reports no desire to harm self or others. Onset of symptoms was January 12, 2022. 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 - Social history:: Smoking status: unknown. Screenin:31 Abuse screen: Denies threats or abuse. Denies injuries from another. Nutritional iw screening: No deficits noted. Tuberculosis screening: No symptoms or risk factors identified. Fall Risk None identified. Assessment: 11:30 General: Appears in no apparent distress. Behavior is calm, cooperative. Pain: Denies iw pain. Neuro: Ramirez Agitation-Sedation Scale (RASS): Level of Consciousness is awake, alert, obeys commands, Oriented to person, place, time, situation, Moves all extremities. Cardiovascular: Patient's skin is warm and dry. Respiratory: Respiratory effort is even, unlabored. Derm: Skin is intact, is healthy with good turgor. Musculoskeletal: Range of motion: intact in all extremities. Vital Signs: 11:00 BP 148 / 110; Pulse 78; Resp 16; Temp 98.1; Pulse Ox 100% on R/A; iw ED Course: 10:56 Patient arrived in ED. as 11:01 Triage completed. iw 11:01 Arm band placed on. iw 11:02 Felipa Wilkins FNP-C is PHCP. kb 11:02 Sky Paige DO is Attending Physician. kb 11:12 Pauline Soto, RN is Primary Nurse. iw 11:15 Patient has correct armband on for positive identification. iw 11:31 No provider procedures requiring assistance completed. Patient did not have IV access iw during this emergency room visit. Administered Medications: No medications were administered Medication: 11:31 VIS not applicable for this client. iw Outcome: 11:41 Discharge ordered by MD. kb 12:03 Discharged to home ambulatory. iw 12:03 Condition: good 12:03 Discharge instructions given to patient, Instructed on discharge instructions, follow up and referral plans. Demonstrated understanding of instructions, follow-up care. 12:04 Patient left the ED. iw Signatures: Felipa Wilkins FNP-C FNP-Mary Solorio as Pauline Soto, RN RN iw Corrections: (The following items were deleted from the chart) 11:02 11:00 Chief complaint: Patient states: needs a test, LMP was December 03, 2021. pt iw denies pain or cramping iw 15:57 11:01 Home Meds: None; iw iw
--- NOTE | 2022-01-12 11:41 | EDPHYS ---
Physician Documentation [facility] Name: Rachel Dewey Age: 36 yrs Sex: Female : 1985 Arrival Date: 01/12/2022 Time: 10:56 Bed 11 Private MD: ED Physician Sky Paige HPI: 01/12 17:21 This 36 yrs old Black Female presents to ER via Ambulatory with complaints of kb test. 17:21 "I just want to know if I'm . My period was supposed to start on the 7th and it kb hasn't yet.". The patient has experienced similar episodes in the past. The patient has not recently seen a physician. 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 - Social history:: Smoking status: unknown. ROS: 17:21 Constitutional: Negative for fever, chills, and weight loss. kb 17:21 : Positive for menstrual abnormality. 17:21 All other systems are negative. Exam: 17:21 Constitutional: This is a well developed, well nourished patient who is awake, alert, kb and in no acute distress. Head/Face: Normocephalic, atraumatic. ENT: Moist Mucous membranes Respiratory: Respirations even and unlabored. No increased work of breathing. Talking in full sentences Abdomen/GI: Soft, non-tender. No distention Skin: Warm, dry with normal turgor. Normal color. MS/ Extremity: Pulses equal, no cyanosis. Neurovascular intact. Full, normal range of motion. Neuro: Awake and alert, GCS 15, oriented to person, place, time, and situation. Moves all extremities. Normal gait. Psych: Awake, alert, with orientation to person, place and time. Behavior, mood, and affect are within normal limits. Vital Signs: 11:00 BP 148 / 110; Pulse 78; Resp 16; Temp 98.1; Pulse Ox 100% on R/A; iw MDM: 11:03 Patient medically screened. kb 17:21 Data reviewed: vital signs, nurses notes. Data interpreted: Pulse oximetry: on room air kb is 100 %. Interpretation: normal. Counseling: I had a detailed discussion with the patient and/or guardian regarding: the historical points, exam findings, and any diagnostic results supporting the discharge/admit diagnosis, lab results, the need for outpatient follow up, a family practitioner, to return to the emergency department if symptoms worsen or persist or if there are any questions or concerns that arise at home. 01/12 11:27 Order name: Urine Dipstick-Ancillary; Complete Time: 11:32 EDMS 01/12 11:30 Order name: Urine --Ancillary (enter results); Complete Time: 11:40 iw 01/12 11:05 Order name: Urine Dipstick-Ancillary (obtain specimen); Complete Time: 11:26 kb 01/12 11:05 Order name: Urine Test (obtain specimen); Complete Time: 11:26 kb Administered Medications: No medications were administered Disposition: 19:51 Co-signature as Attending Physician, Sky Paige DO I was immediately available on-site ms3 in the Emergency Department for consultation in the care of the patient.. Disposition Summary: 01/12/22 11:41 Discharge Ordered Location: Home kb Condition: Stable kb Diagnosis - state, incidental kb Followup: kb - With: Emergency Department - When: As needed - Reason: Worsening of condition Followup: kb - With: Private Physician - When: 2 - 3 days - Reason: Recheck today's complaints, Continuance of care, Re-evaluation by your physician Discharge Instructions: - Discharge Summary Sheet kb - First Trimester of , [id number] kb Forms: - Medication Reconciliation Form kb - Thank You Letter kb - Antibiotic Education kb - Prescription Opioid Use kb Signatures: Dispatcher [employer] Felipa Tyson, KAUSHAL-C KAUSHAL-Pauline Brar, RN RN Sky Mckay DO DO ms3 Corrections: (The following items were deleted from the chart) 15:57 11:01 Home Meds: None; eli benitez
[2022-01-12 12:17] VITALS: BP 148/110; TEMP 98.1; O2SAT 100
== END 2022-01-12 12:04 | disposition home or self-care (01) ==
LOC: ER 10:49
DX: Z33.1 Pregnant state, incidental (principal)
CPT/HCPCS: 81003; 81025; 99281